=== PATIENT | male | born 1950 | race African-American/Black ===

== ENCOUNTER 2017-01-08 10:48 | Emergency (ER) | payer MEDICARE, OTHER ==
[~2017-01-08] VITALS: Ht 188 cm; Wt 114.3 kg
[~2017-01-08 10:48] MED LIST: DAPA5TAB PO; ESOM40CA PO; GLIP5TAB13 PO; LOSA50TA3 PO; OLME20TA14 PO; OXYC-133 PO; metform PO
[2017-01-08 10:52] VITALS: BP 169/96; PULSE 110; RESP 20; TEMP 97; O2SAT 96
--- NOTE | 2017-01-08 10:57 | NUR ---
Pt placed to ER bed 07. Report given to FARRAH Hardwick.
--- NOTE | 2017-01-08 11:10 | NUR ---
PT. TO ER AAOX4 C/O LOWER BACK AND UPPER BACK PAIN, STATES THAT HE WAS HEADED TO HIS GRAND DAUGHTER'S SOCCER GAME DID NOT FEEL GOOD ON HIS WAY, STATES THAT HE HAS A HX OF SPINAL SURGERY, DID NOT TAKE HIS OXYCODONE THIS MORNING BECAUSE HE NEEDED TO DRIVE, STATES THAT HIS BP HAS BEEN HIGH FOR PAST 2 DAYS WELL EVEN AFTER TAKING HIS BP MEDS, C/O HEADACHE WELL, PAIN 8/10, DENIES SOB, DENIES CHEST PAIN
--- NOTE | 2017-01-08 11:15 | NUR ---
DR. RASCON AT BEDSIDE EXAMINING THE PT.
--- NOTE | 2017-01-08 11:27 | NUR ---
X RAY AT BEDSIDE
[2017-01-08] MEDS ORDERED: cloNIDine HCL 0.1 MG TABLET PO ONE (11:30)
--- NOTE | 2017-01-08 11:37 | NUR ---
LAB AT BEDSIDE TO DRAW BLOOD, PT. TOLERATED WELL
[2017-01-08 11:41] LABS: BASOPHILS % (AUTO) 0.3 % (0.0-2.0); EOSINOPHILS # (AUTO) 0.1 K/uL (0.0-0.4); EOSINOPHILS % (AUTO) 2.3 % (0.0-4.0); HEMOGLOBIN 12.6 g/dL (14.0-18.0); LYMPHOCYTES % (AUTO) 21.7 % (20.5-51.5); MEAN CORPUSCULAR HEMOGLOBIN 25 pg (27-31); MEAN CORPUSCULAR HGB CONC 31 % (32-36); MEAN CORPUSCULAR VOLUME 79 fL (79.0-98.0); MONOCYTES # (AUTO) 0.3 K/uL (0.0-1.0); MONOCYTES % (AUTO) 6.1 % (1.7-9.3); NEUTROPHILS # (AUTO) 3.2 K/uL (1.8-7.7); NEUTROPHILS % (AUTO) 69.6 % (40.0-70.0); PLATELET COUNT (AUTO) 207 K/uL (130-430); RED BLOOD CELL COUNT(AUTO) 5.09 MIL/uL (4.2-6.2); RED CELL DISTRIBUTION WIDTH 17.7 % (9.0-15.0); WHITE BLOOD COUNT (AUTO) 4.6 K/uL (4.8-10.8)
[2017-01-08 11:46] LABS: CALCIUM 9.4 mg/dL (8.4-11.0); CREATININE 1.34 mg/dL (0.55-1.30)
[2017-01-08 11:51] LABS: ALBUMIN 3.9 g/dL (3.4-4.8); TOTAL BILIRUBIN 0.2 mg/dL (0.0-1.0); TOTAL PROTEIN, SERUM 7.8 g/dL (6.4-8.3)
--- NOTE | 2017-01-08 12:00 | NUR ---
DR. RASCON AT BEDSIDE, BP DOWN TO 138/89, PT. STATES HE IS WORRIED ABOUT THE HEADACHE, MD DR. RASCON DISCUSSED PLAN OF CARE AND A CT SCAN, PT. REFUSES TO TAKE NORCO FOR HIS HEADACHE STATES HE DOES NOT WANT TO GO TO ANOTHER FACITY FOR CT SCAN, STATES," I WILL FOLLOW UP WITH MY DOCTOR INSTEAD"
[2017-01-08 12:01] LABS: INR 0.9 (0.80-1.20); PROTHROMBIN TIME 10.2 SECS (9.5-12.5)
[2017-01-08] MEDS ORDERED: HYDROcodone/ACETAMIN 10-325 MG TAB PO ONE (12:15)
--- NOTE | 2017-01-08 12:20 | NUR ---
EXPLAINED PLAN OF TREATMENT BY FIFI YAN AND TARAH MELÉNDEZ, PT. REFUSED TO SIGN DISCHARGE PAPERS AND AMA FORM, STATES HE IS NOT GOING TO SIGN ANY PAPERS, VARIOUS ATTEMPTS TO EXPLAIN CONSEQUENCES OF LEAVING WITHOUT COMPLETING THE COURSE OF TREATMEN, PT. UNWILLING TO COOPERATE AND STAY FOR TREATMENT
--- NOTE | 2017-01-08 12:25 | NUR ---
PT. ELOPED AGAINST MD DR. RASCON'S MEDICAL ADVICE
== END 2017-01-08 12:27 | disposition left against medical advice (07) ==
LOC: SED 10:48
DX: I10 Essential (primary) hypertension (principal); G89.29 Other chronic pain; M54.2 Cervicalgia; M54.9 Dorsalgia, unspecified; E11.9 Type 2 diabetes mellitus without complications; Z53.20 Procedure and treatment not carried out because of patient's decision for unspecified reasons
CPT/HCPCS: 36415; 71010; 80053; 83880; 84484; 85025; 85610-TC; 85730-TC; 93005; 99285

== ENCOUNTER 2018-11-02 18:58 | Inpatient (IN) | payer MEDICARE, MEDICAID ==
[~2018-11-02] VITALS: Ht 188 cm; Wt 114.3 kg
[2018-11-02 19:15] VITALS: BP_SYST 157
--- NOTE | 2018-11-02 19:20 | NUR ---
Pt triaged , pt A&Ox4, Dr Jarvis notified pt has headache and swelling of lower extremities, no rooms available at this time,orders received for CT head, labs and X-ray. orders placed by Dr Jarvis at this time.
--- NOTE | 2018-11-02 19:25 | NUR ---
Pt placed to ER bed 01, to gown. Pt c/o H/A, neck pain, Left groin pain, and swelling/redness to BLE x 1.5 weeks. Pt states that he went to ER in [place] r/t H/A and was discharged with possible sinus infection, Rx antibiotics which he just completed. Pt verbalizes fear r/t H/A because family hx of brain aneurysms.
--- NOTE | 2018-11-02 19:50 | NUR ---
Dr. Choi at bedside.
[2018-11-02 19:59] LABS: BILIRUBIN,URINE NEGATIVE (NEGATIVE); BLOOD, URINE TRACE (NEGATIVE); CLARITY/URINE CLEAR (CLEAR); COLOR,URINE YELLOW (YELLOW); GLUCOSE,URINE 3+ (NEGATIVE); KETONES,URINE NEGATIVE (NEGATIVE); LEUKOCYTE ESTERASE ,URINE NEGATIVE (NEGATIVE); NITRITE, URINE NEGATIVE (NEGATIVE); PROTEIN URINE 1+ (NEGATIVE); UROBILINOGEN,URINE 0.2 (0.2-1.0)
[2018-11-02 20:11] LABS: BACTERIA,URINE RARE /HPF (None Seen); RBC,URINE 0-3 /HPF (0-3); WBC,URINE 0-3 /HPF (0-3)
[2018-11-02 20:33] LABS: BASOPHILS % (AUTO) 0.3 % (0.0-2.0); EOSINOPHILS # (AUTO) 0.1 K/uL (0.0-0.4); EOSINOPHILS % (AUTO) 2.3 % (0.0-4.0); HEMATOCRIT 41.9 % (36-54); HEMOGLOBIN 13.1 g/dL (14.0-18.0); LYMPHOCYTES # (AUTO) 1.2 K/uL (1.0-5.5); LYMPHOCYTES % (AUTO) 28.8 % (20.5-51.5); MEAN CORPUSCULAR HEMOGLOBIN 25 pg (27-31); MEAN CORPUSCULAR HGB CONC 31 % (32-36); MEAN CORPUSCULAR VOLUME 81 fL (79.0-98.0); MONOCYTES # (AUTO) 0.3 K/uL (0.0-1.0); MONOCYTES % (AUTO) 7.8 % (1.7-9.3); NEUTROPHILS # (AUTO) 2.5 K/uL (1.8-7.7); NEUTROPHILS % (AUTO) 60.8 % (40.0-70.0); PLATELET COUNT (AUTO) 210 K/uL (130-430); RED CELL DISTRIBUTION WIDTH 16.8 % (9.0-15.0); WHITE BLOOD COUNT (AUTO) 4.1 K/uL (4.8-10.8)
[2018-11-02 20:47] LABS: CALCIUM 9.5 mg/dL (8.4-11.0); CREATININE 1.43 mg/dL (0.55-1.30); POTASSIUM 4.1 mmol/L (3.5-5.1)
[2018-11-02 20:51] LABS: PROTHROMBIN TIME 9.8 SECS (9.5-12.5)
[2018-11-02 20:57] LABS: ALBUMIN 3.9 g/dL (3.4-4.8); TOTAL BILIRUBIN 0.2 mg/dL (0.0-1.0)
[2018-11-02] MEDS ORDERED: VANCOMYCIN HCL 2,000 MG in NS 250 ML IV ONE (22:15)
[2018-11-02] MEDS ORDERED: NACL 0.9% 1,000 ML IV ONE (22:15)
[2018-11-02] MEDS ORDERED: HYDROcodone/ACETAMIN 5-325 MG TAB (NORCO/ VICODIN) PO ONE (22:30)
[2018-11-02] MEDS ORDERED: METOCLOPRAMIDE HCL 10 MG/2 ML VIAL IVP ONE (22:30)
[2018-11-02 22:41] LABS: THYROID STIMULATING HORMONE 1.74 uIu/mL (0.34-4.82)
[2018-11-02] MEDS ORDERED: LOVA40TA75 PO (22:41)
[2018-11-02] MEDS ORDERED: OXYC10TA56 PO (22:41)
[2018-11-02] MEDS ORDERED: HYDR-3608 PO (22:42)
[2018-11-02] MEDS ORDERED: GLIP-214 PO (22:45)
[2018-11-02] MEDS ORDERED: FURO-149 PO (22:46)
[2018-11-02] MEDS ORDERED: VANCOMYCIN HCL 1000 MG/VIAL IV ONE (22:47)
[2018-11-02] MEDS ORDERED: cefTRIAXone 2 GM VIAL ONE (22:48)
--- NOTE | 2018-11-02 22:50 | NUR ---
Santino from CT reports that Cr level is too high for IV contrast. Dr. Choi notified and order changed to CT without contrast.
--- NOTE | 2018-11-02 23:22 | NUR ---
Pt to CT for abdominal series.
--- NOTE | 2018-11-03 | NUR ---
Pt returns from CT.
[2018-11-03] MEDS ORDERED: BISACODYL 5 MG TABLET.DR (DULCOLAX) PO PRN (00:15)
[2018-11-03] MEDS ORDERED: MORPHINE 4 MG/ML INJ. SYRINGE IVP PRN (00:15)
--- NOTE | 2018-11-03 00:35 | NUR ---
No needs verbalized at this time.
--- NOTE | 2018-11-03 01:20 | NUR ---
Patient will be admitted to care of Dr. Mobley. Admitted to Med/Surg unit. Will go to room 135. Belongings list completed. Summary report printed. Report will be given at bedside.
--- NOTE | 2018-11-03 01:36 | NUR ---
ADMISSION: The patient, SHERIF COOK, 68 y/o, M admitted by CHRISTINE SOMMERS DO, was given written information regarding hospital policies, unit procedures and contact persons.
[2018-11-03 01:44] VITALS: BP_SYST 133
--- NOTE | 2018-11-03 02:40 | NUR ---
Note: Patient safely ambulated to restroom and back to bed with steady gait. No complaints of shortness of breath. Patient refused bed alarm, education was provided regarding bed alarm use. Call light is with patient. Will continue to monitor.
--- NOTE | 2018-11-03 02:45 | NUR ---
Morphine allergy: Patient states he has an allergic reaction to morphine, states that his arms become swollen and itchy. Will notify doctor regarding patient's allergy and ordered morphine. Addendum: 11/03/18 at 0651 by Eduin Aaron RN Allergy band applied to patient at this time.
--- NOTE | 2018-11-03 02:51 | NUR ---
JORI MELÉNDEZ Left a voicemail with call back info for Dr. Mobley regarding orders.
--- NOTE | 2018-11-03 04:37 | NUR ---
Rounds: Patient resting in bed with eyes closed, does not show signs or symptoms of acute distress. Respirations even and unlabored on room air. Call light is with patient. Will continue to monitor.
--- NOTE | 2018-11-03 04:59 | NUR ---
Spoke with Dr. Mobley: informed that patient stated he had allergy to morphine, that his reaction to it is swollen and itchy arms. MD ordered to D/C morphine. Ordered medications for moderate and severe pain. RN will input orders.
[2018-11-03] MEDS ORDERED: HYDROcodone/ACETAMIN 5-325 MG TAB (NORCO/ VICODIN) PO PRN (05:00)
[2018-11-03] MEDS: HYDROcodone/ACETAMIN 5-325 MG TAB (NORCO/ VICODIN) PO PRN ×2 (05:07→09:43)
--- NOTE | 2018-11-03 05:07 | NUR ---
Pain management: Patient complaining of 8/10 back pain. PRN Palmer indicated. Educated patient regarding indications and side effects of morphine, patient verbalized understanding. Administered medication PO per MD order. Patient tolerated well. Call light with patient. Will continue monitoring.
--- NOTE | 2018-11-03 06:50 | NUR ---
Closing note: Patient resting in bed, no acute distress noted. IV to patient's left hand remains patent and benign. Most recent blood sugar was 150, no insulin provided per sliding scale. Call light is with patient. Safety and fall precautions in place. Will endorse care to dayshift RN.
--- NOTE | 2018-11-03 07:30 | NUR ---
INITIAL NOTE RECEIVED PT IN BED, NO S/S OF DISTRESS OR SOB NOTED, PT HAS NO C/O PAIN AT THIS TIME, PT IN STABLE CONDITION. PT AAOX4, VERBAL. IV CATHETER PATENT, NO SIGNS OF INFECTION OR INFILTRATION NOTED, SALINE LOCK. BED AT LOWEST POSITION, CALL LIGHT WITHIN REACH, WILL CONTINUE TO MONITOR PT FOR ANY CHANGES, FALL AND SAFETY PRECAUTIONS IN PLACE.
[2018-11-03 08:30] VITALS: BP_SYST 157
[2018-11-03] MEDS ORDERED: LACTULOSE 20 GM/30 ML UDC PO ONE (09:30)
[2018-11-03] MEDS ORDERED: NA PHOS,M-B/NA PHOS,DI-BA 118 ML (FLEET ENEMA) RC ONE (09:30)
--- NOTE | 2018-11-03 09:30 | NUR ---
MD ROUNDS DR SOMMERS ROUNDING, AWARE OF PATIENTS CONDITION. NEW ORDERS GIVEN AND CARRIED OUT.
--- NOTE | 2018-11-03 09:45 | NUR ---
CONSULTATION PAGED/CALLED Reason for Consultation: [] HARPER, FAMILY HX IF ANEURYSMS Person Who was Notified: [] Consulting Physician: [] DR Forrest BEDOLLA Feed Mixer Specialty: [] NEUROLOGY Ordering Physician: [] DR Annalisa SOMMERS Addendum: 11/03/18 at 0950 by Meka Carr MT/ PERSON WHO WAS NOTIIED - RUSSEL
[2018-11-03] MEDS ORDERED: CYCLOBENZAPRINE HCL 10 MG TABLET (FLEXERIL) PO ONE (10:00)
--- NOTE | 2018-11-03 10:10 | NUR ---
ROUNDS PT IN BED, NO S/S OF DISTRESS OR SOB NOTED, PT HAS NO C/O PAIN AT THIS TIME, PT IN STABLE CONDITION, PT RESTING COMFORTABLY, WILL CONTINUE TO MONITOR PT FOR ANY CHANGES.
[2018-11-03] MEDS: NACL 0.9% 1,000 ML IV SCH (10:25)
[2018-11-03] MEDS: FIORCET PO PRN ×2 (10:26→14:50)
[2018-11-03] MEDS ORDERED: oxyCODONE HCL 5 MG TABLET PO ONE (10:30)
[2018-11-03] MEDS ORDERED: oxyCODONE HCL 10 MG TAB.ER.12H PO SCH ×2 (10:30→15:00)
[2018-11-03] MEDS: INSULIN ASPART 100 UNITS/ML, 10 ML VIAL (NovoLOG) SUBCUT PRN ×3 (11:29→21:17)
[2018-11-03] MEDS ORDERED: MILK OF MAGNESIA 30 ML UDC PO ONE (12:15)
[2018-11-03] MEDS ORDERED: LORazepam 2 MG/ML VIAL IVP ONE (12:15)
[2018-11-03] MEDS ORDERED: BISACODYL 10 MG/SUPPOSITORY RC ONE (12:15)
[2018-11-03 12:51] VITALS: BP_SYST 159
[2018-11-03] MEDS ORDERED: LINA1TAB5 PO (13:59)
[2018-11-03] MEDS ORDERED: PIOG30TA70 PO (13:59)
[2018-11-03] MEDS ORDERED: PRO40 PO (13:59)
[2018-11-03] MEDS ORDERED: FLUT16SP16 NS (14:01)
[2018-11-03] MEDS ORDERED: TAMS-11 PO (14:15)
--- NOTE | 2018-11-03 15:00 | NUR ---
MRI PT LEFT UNIT FOR MRI, PT WAS ADMINISTERED ORDERED ATIVAN FOR ANXIETY. PT IN STABLE CONDITION, NO S/S OF DISTRESS OR SOB NOTED.
--- NOTE | 2018-11-03 16:00 | NUR ---
BACK FROM MRI PT IN STABLE CONDITION, NO S/S OF DISTRESS OR SOB NOTED, PT HAS NO C/O PAIN AT THIS TIME, PT WAS ABLE TO GET MRI OF BRAIN DONE.
[2018-11-03] MEDS: oxyCODONE HCL 5 MG TABLET PO SCH ×2 (16:43→21:09)
[2018-11-03 17:25] VITALS: BP_SYST 139
[2018-11-03] MEDS: SIMVASTATIN 10 MG TABLET PO SCH (17:43)
--- NOTE | 2018-11-03 18:34 | NUR ---
CLOSING NOTE PT IN BED, NO S/S OF DISTRESS OR SOB NOTED, PT HAS NO C/O PAIN AT THIS TIME, PT IN STABLE CONDITION. PT AAOX4, VERBAL. IV CATHETER PATENT, NO SIGNS OF INFECTION OR INFILTRATION NOTED, SALINE LOCK. BED AT LOWEST POSITION, CALL LIGHT WITHIN REACH, WILL ENDORSE CARE OF PT TO INCOMING NURSE, FALL AND SAFETY PRECAUTIONS IN PLACE.
--- NOTE | 2018-11-03 19:45 | NUR ---
ROUNDS PATIENT IN BED, WATCHING TV, NOT IN DISTRESS, VITALS STABLE. DENIES ANY PAIN AND DISCOMFORT AT THIS TIME. ASSESSMENT DONE AND DOCUMENTED. IV WITH NS INFUSING WELL AT ORDERED RATE. IV SITE PATENT, NO SIGNS OF INFILTRATION NOTED. NEEDS ATTENDED TO. SAFETY AND FALL PRECAUTION MEASURES IN PLACED. BED IN LOW AND LOCKED POSITION. CALL LIGHT PLACED WITHIN REACH.
[2018-11-03] MEDS: cefTRIAXone 1 GM IVPB PREMIX 50 ML IV SCH (21:08)
[2018-11-03] MEDS: CYCLOBENZAPRINE HCL 10 MG TABLET (FLEXERIL) PO SCH (21:09)
--- NOTE | 2018-11-03 21:20 | NUR ---
ACCU CHECK ACCU CHECK DONE, BLOOD SUGAR 255 WITH 6 UNITS NOVOLOG GIVEN PER SLIDING SCALE. WILL CONTINUE TO MONITOR.
--- NOTE | 2018-11-04 00:14 | NUR ---
PATIENT RESTING: Patient resting quietly. No acute distress noted. Vital signs within normal range.
[2018-11-04 00:55] VITALS: BP_SYST 157
--- NOTE | 2018-11-04 02:15 | NUR ---
ROUNDS PATIENT ASLEEP, NO SOB NOR PAIN AND DISCOMFORT NOTED. WILL CONTINUE TO MONITOR.
--- NOTE | 2018-11-04 04:13 | NUR ---
ROUNDS PATIENT ASLEEP, VITALS STABLE, NO PAIN AND DISCOMFORT NOTED. WILL CONTINUE TO MONITOR.
[2018-11-04] MEDS: HYDROcodone/ACETAMIN 5-325 MG TAB (NORCO/ VICODIN) PO PRN ×2 (05:24→13:40)
[2018-11-04] MEDS: NACL 0.9% 1,000 ML IV SCH ×2 (05:30→17:54)
[2018-11-04 07:24] LABS: BASOPHILS % (AUTO) 0.1 % (0.0-2.0); EOSINOPHILS # (AUTO) 0.1 K/uL (0.0-0.4); EOSINOPHILS % (AUTO) 2.4 % (0.0-4.0); HEMATOCRIT 41.7 % (36-54); HEMOGLOBIN 13.2 g/dL (14.0-18.0); LYMPHOCYTES # (AUTO) 0.8 K/uL (1.0-5.5); LYMPHOCYTES % (AUTO) 22.7 % (20.5-51.5); MEAN CORPUSCULAR HEMOGLOBIN 26 pg (27-31); MEAN CORPUSCULAR HGB CONC 32 % (32-36); MEAN CORPUSCULAR VOLUME 81 fL (79.0-98.0); MONOCYTES # (AUTO) 0.3 K/uL (0.0-1.0); MONOCYTES % (AUTO) 9.5 % (1.7-9.3); NEUTROPHILS # (AUTO) 2.3 K/uL (1.8-7.7); NEUTROPHILS % (AUTO) 65.3 % (40.0-70.0); PLATELET COUNT (AUTO) 200 K/uL (130-430); RED BLOOD CELL COUNT(AUTO) 5.14 MIL/uL (4.2-6.2); RED CELL DISTRIBUTION WIDTH 16.7 % (9.0-15.0); WHITE BLOOD COUNT (AUTO) 3.6 K/uL (4.8-10.8)
[2018-11-04 07:49] LABS: CALCIUM 9.7 mg/dL (8.4-11.0); CREATININE 1.22 mg/dL (0.55-1.30); POTASSIUM 3.8 mmol/L (3.5-5.1)
[2018-11-04 08:00] VITALS: BP_SYST 139
--- NOTE | 2018-11-04 08:00 | NUR ---
am notes Pt in bed, eating breakfast. has back and neck pain. was medicated by night nurse. IVF infusing well. ambulate to the bathroom. safety precaution observed. call light within reach. enc. to call when getting out of bed. refuses bed alarm.
[2018-11-04] MEDS ORDERED: LOSARTAN POTASSIUM 50 MG TABLET (COZAAR) PO SCH (09:00)
[2018-11-04] MEDS: FIORCET PO PRN (09:19)
[2018-11-04] MEDS ORDERED: DOCUSATE SODIUM 250 MG CAPSULE PO ONE (09:30)
[2018-11-04] MEDS: LOSARTAN POTASSIUM 50 MG TABLET (COZAAR) PO SCH (09:46)
[2018-11-04] MEDS: glipiZIDE XL 5 MG TAB ( GLUCOTROL XL) PO SCH (09:46)
[2018-11-04] MEDS: CYCLOBENZAPRINE HCL 10 MG TABLET (FLEXERIL) PO SCH ×2 (09:46→20:56)
[2018-11-04] MEDS: oxyCODONE HCL 5 MG TABLET PO SCH ×3 (09:48→20:55)
[2018-11-04] MEDS: FUROSEMIDE 40 MG TABLET PO SCH (09:50)
--- NOTE | 2018-11-04 10:30 | NUR ---
Notes- Sitting in the chair, headache better. no distress noted. Seen by Dr. Mobley at bedside. Call light in reach. Enc. to call for help as needed.
[2018-11-04 11:09] VITALS: BP_SYST 139
[2018-11-04] MEDS: INSULIN ASPART 100 UNITS/ML, 10 ML VIAL (NovoLOG) SUBCUT PRN ×3 (12:00→21:16)
--- NOTE | 2018-11-04 13:43 | NUR ---
notes In bed, watching tv, complain of back pain of 8/10 pain level. medicated with norco as ordered.
--- NOTE | 2018-11-04 14:55 | NUR ---
Notes In bed, resting. no distress noted. Report given to Dede YAN for continuity of care.
--- NOTE | 2018-11-04 14:56 | NUR ---
Notes- In bed, resting. report given to Dede YAN for continuity of care.
--- NOTE | 2018-11-04 15:00 | NUR ---
Opening Note received report from Bethany Roman RN, pt resting in bed, A&Ox4, respirations even and unlabored on room air, no acute distress noted, IV site clean, dry, intact, and infusing well, pt educated on use of call light and asked to call for assistance, pt verbalized understanding, call light in reach, pt educated on use of bed alarm for pt safety, pt refusing bed alarm, bed in low and locked position, fall and aspiration precautions in place.
--- NOTE | 2018-11-04 15:46 | NUR ---
Medication pt educated on use and side effects of medication, pt verbalized understanding, tolerated medication administration well, no acute distress noted, fall and aspiration precautions in place.
[2018-11-04 16:52] VITALS: BP_SYST 122
[2018-11-04] MEDS: SIMVASTATIN 10 MG TABLET PO SCH (17:11)
--- NOTE | 2018-11-04 17:15 | NUR ---
Medication/Blood glucose blood glucose 164, pt educated on use and side effects of novolog per sliding scale orders and use and side effects of all medications, pt verbalized understanding, tolerated medication administration well, no acute distress noted, fall and aspiration precautions in place.
--- NOTE | 2018-11-04 17:57 | NUR ---
IV fluids pt educated on use and side effects of IV fluid administration, pt verbalized understanding, new bag of IV fluids hung at this time, pt tolerating well, no redness or swelling noted at IV site, pt in bed eating dinner, fall and aspiration precautions in place.
--- NOTE | 2018-11-04 19:20 | NUR ---
Closing Note pt resting in bed, A&Ox4, respirations even and unlabored on room air, pt reports pain is controlled at this time, no acute distress noted, IV site clean, dry, intact, and infusing well, pt educated on use of call light and asked to call for assistance, pt verbalized understanding, call light in reach, pt educated on use of bed alarm for pt safety, pt refusing bed alarm, bed in low and locked position, fall and aspiration precautions in place, care endorsed to Sylvia YAN.
--- NOTE | 2018-11-04 19:30 | NUR ---
CHANGE OF SHIFT: pt. awake,alert, sitting at the edge of the bed with family visiting, denies any pain at this time. IVF infusing with NS @ 60 cc/hr. via rt. antecubital. call light within reach, bed in low position, off sequential, pt. ambulatory.
[2018-11-04 20:30] VITALS: BP_SYST 141
[2018-11-04] MEDS: DOCUSATE SODIUM 250 MG CAPSULE PO SCH (20:48)
[2018-11-04] MEDS: cefTRIAXone 1 GM IVPB PREMIX 50 ML IV SCH (20:59)
--- NOTE | 2018-11-04 21:15 | NUR ---
NOTES: due meds given and blood sugar checked 190 with sliding scale coverage. IV site, secured with more tape. changed gown. pt. needs attended. c/o back pain and medicated as scheduled.
[2018-11-05] VITALS: BP_SYST 132
--- NOTE | 2018-11-05 00:30 | NUR ---
NOTES: pt. assisted to the restroom. IVF infusing, pt. needs attended.
--- NOTE | 2018-11-05 03:13 | NUR ---
NOTES: pt. sleeping when checked, in no acute distress. condition unchanged.
[2018-11-05] MEDS: HYDROcodone/ACETAMIN 5-325 MG TAB (NORCO/ VICODIN) PO PRN ×2 (06:23→21:34)
--- NOTE | 2018-11-05 06:30 | NUR ---
CLOSING NOTES; PT. ALREADY AWAKE C/O OF LOWER BACK PAIN, MEDICATED ORDERED WITH NORCO 2 TABS PO. BLOOD SUGAR CHECKED 147, NO SLIDING SCALE COVERAGE. REPOSITIONED ON HIG FOWLERS POSITION, BOTH LOWER EXTREMITIES STILL SWOLLEN BUT MUCH LESS SWOLLEN ACCORDING TO PT. IV PATENT. FOR FURTHER CARE AND ASSISTANCE. CALL LIGHT WITHIN REACH.
[2018-11-05 07:29] LABS: CALCIUM 10.1 mg/dL (8.4-11.0); CREATININE 1.38 mg/dL (0.55-1.30); POTASSIUM 4.3 mmol/L (3.5-5.1)
--- NOTE | 2018-11-05 07:45 | NUR ---
endorsed pt. to incoming shift with nurse Sidhu.
--- NOTE | 2018-11-05 07:50 | NUR ---
opening note pt awake alert, no distress noted, reoriented to call light use refusing bed alarm,safety maintained
[2018-11-05 08:05] LABS: BASOPHILS % (AUTO) 0.1 % (0.0-2.0); EOSINOPHILS # (AUTO) 0.1 K/uL (0.0-0.4); EOSINOPHILS % (AUTO) 2.1 % (0.0-4.0); HEMATOCRIT 43.6 % (36-54); HEMOGLOBIN 13.9 g/dL (14.0-18.0); LYMPHOCYTES # (AUTO) 1.2 K/uL (1.0-5.5); LYMPHOCYTES % (AUTO) 26.8 % (20.5-51.5); MEAN CORPUSCULAR HEMOGLOBIN 26 pg (27-31); MEAN CORPUSCULAR HGB CONC 32 % (32-36); MEAN CORPUSCULAR VOLUME 82 fL (79.0-98.0); MONOCYTES # (AUTO) 0.7 K/uL (0.0-1.0); MONOCYTES % (AUTO) 14.1 % (1.7-9.3); NEUTROPHILS # (AUTO) 2.7 K/uL (1.8-7.7); NEUTROPHILS % (AUTO) 56.9 % (40.0-70.0); PLATELET COUNT (AUTO) 174 K/uL (130-430); RED BLOOD CELL COUNT(AUTO) 5.34 MIL/uL (4.2-6.2); RED CELL DISTRIBUTION WIDTH 16.4 % (9.0-15.0)
[2018-11-05 08:07] LABS: WHITE BLOOD COUNT (AUTO) 4.7 K/uL (4.8-10.8)
[2018-11-05] MEDS: DOCUSATE SODIUM 250 MG CAPSULE PO SCH ×2 (10:04→21:11)
[2018-11-05] MEDS: glipiZIDE XL 5 MG TAB ( GLUCOTROL XL) PO SCH (10:04)
[2018-11-05] MEDS: CYCLOBENZAPRINE HCL 10 MG TABLET (FLEXERIL) PO SCH ×2 (10:04→21:11)
[2018-11-05] MEDS: PSYLLIUM HUSK 1 PKT PACKET PO SCH (10:04)
[2018-11-05] MEDS: oxyCODONE HCL 5 MG TABLET PO SCH ×3 (10:11→21:12)
[2018-11-05] MEDS: FUROSEMIDE 40 MG TABLET PO SCH (10:12)
[2018-11-05] MEDS: NACL 0.9% 1,000 ML IV SCH (10:13)
[2018-11-05] MEDS: LOSARTAN POTASSIUM 50 MG TABLET (COZAAR) PO SCH (10:13)
[2018-11-05] MEDS ORDERED: NA PHOS,M-B/NA PHOS,DI-BA 118 ML (FLEET ENEMA) RC ONE (10:15)
[2018-11-05] MEDS ORDERED: BISACODYL 10 MG/SUPPOSITORY RC ONE (10:15)
--- NOTE | 2018-11-05 10:16 | NUR ---
am meds given, pt tolerated well, no distress noted.
[2018-11-05] MEDS: INSULIN ASPART 100 UNITS/ML, 10 ML VIAL (NovoLOG) SUBCUT PRN ×3 (12:04→21:23)
--- NOTE | 2018-11-05 12:30 | NUR ---
PT WITH FAMILY IN LOBBY TAKEN VIA WHEELCHAIR.
[2018-11-05 12:41] VITALS: BP_SYST 121
--- NOTE | 2018-11-05 14:48 | NUR ---
SCHEDULED OXYCODONE GIVEN AT THIS TIME. PT DENIES ANY CP/SOB
[2018-11-05 16:22] VITALS: BP_SYST 128
[2018-11-05] MEDS: SIMVASTATIN 10 MG TABLET PO SCH (17:07)
--- NOTE | 2018-11-05 17:11 | NUR ---
blood sugar-193 2 units insulin given per md sliding scale
--- NOTE | 2018-11-05 18:45 | NUR ---
closing note all needs met through shift, safety maintained , will endorse care to ehr trainer.
--- NOTE | 2018-11-05 19:30 | NUR ---
Opening Notes Received patient sitting on the side of bed. Family at the bedside. IV on the right hand 20g. Site is clean dry and intact. Patient is aaox4 and able to verbalize his needs. No complaints of pain at this time. Breathing is unlabored and equal throughout. Patient refused the bed alarm, education given on risk and benefits. Patient acknowledged. Oriented the patient to the room and use of the call light. Safety precautions in place. Will cont to monitor on rounds.
[2018-11-05 20:00] VITALS: BP_SYST 131
[2018-11-05] MEDS: cefTRIAXone 1 GM IVPB PREMIX 50 ML IV SCH (21:11)
--- NOTE | 2018-11-05 22:30 | NUR ---
Patient sitting at the edge of the bed. Tolerated meds well. No respiratory distress. call light within reach.
--- NOTE | 2018-11-06 00:22 | NUR ---
Administered Suppository and tolerated well. Will cont to monitor for bowel movement.
[2018-11-06 00:44] VITALS: BP_SYST 147
--- NOTE | 2018-11-06 02:30 | NUR ---
patient asleep in bed. no appearance of pain or respiratory distress. call light placed within reach.
--- NOTE | 2018-11-06 04:20 | NUR ---
No change in condition
[2018-11-06] MEDS: NACL 0.9% 1,000 ML IV SCH (05:13)
[2018-11-06] MEDS: HYDROcodone/ACETAMIN 5-325 MG TAB (NORCO/ VICODIN) PO PRN (06:13)
--- NOTE | 2018-11-06 06:15 | NUR ---
Blood sugar 135. no coverage needed.
[2018-11-06 06:38] LABS: BASOPHILS % (AUTO) 0.2 % (0.0-2.0); EOSINOPHILS % (AUTO) 0.8 % (0.0-4.0); HEMATOCRIT 43.6 % (36-54); HEMOGLOBIN 13.9 g/dL (14.0-18.0); LYMPHOCYTES # (AUTO) 1.1 K/uL (1.0-5.5); LYMPHOCYTES % (AUTO) 28.3 % (20.5-51.5); MEAN CORPUSCULAR HEMOGLOBIN 26 pg (27-31); MEAN CORPUSCULAR HGB CONC 32 % (32-36); MEAN CORPUSCULAR VOLUME 82 fL (79.0-98.0); MONOCYTES # (AUTO) 0.6 K/uL (0.0-1.0); MONOCYTES % (AUTO) 16.9 % (1.7-9.3); NEUTROPHILS # (AUTO) 2.1 K/uL (1.8-7.7); NEUTROPHILS % (AUTO) 53.8 % (40.0-70.0); PLATELET COUNT (AUTO) 184 K/uL (130-430); RED BLOOD CELL COUNT(AUTO) 5.29 MIL/uL (4.2-6.2); RED CELL DISTRIBUTION WIDTH 16.7 % (9.0-15.0); WHITE BLOOD COUNT (AUTO) 3.8 K/uL (4.8-10.8)
--- NOTE | 2018-11-06 06:46 | NUR ---
Closing Note Patient resting comfortably sitting on side of bed. No complaints of respiratory distress .Complaints of neck and back pain, administered [place] 10mg. IV site intact, dry and clean on left AC. Suppository given but no bowel movement. Bed in low position and safety precautions in place. All needs have been met and will endorse care to oncoming shift.
--- NOTE | 2018-11-06 07:30 | NUR ---
OPENING NOTE: MORNING REPORT WAS TAKEN FROM PLASTER MECHANIC NURSE AT BEDSIDE. PATIENT IS AWAKE SITTING AT EDGE OF BED WITH NO SIGNS OF DISTRESS. PATIENT ON ROOM AIR. FLUIDS ARE INFUSING. CALL LIGHT IS IN REACH. EDUCATED PATIENT ON IMPORTANCE OF BED ALARM BUT REFUSED TO HAVE IT ON. PATIENT SAID HE KNOWS WHAT TO DO. BED IN LOWEST POSITION WITH SIDE RAILS UP. WILL CONTINUE TO MONITOR
[2018-11-06 07:38] LABS: CALCIUM 9.8 mg/dL (8.4-11.0); CREATININE 1.33 mg/dL (0.55-1.30); POTASSIUM 4.3 mmol/L (3.5-5.1)
[2018-11-06 08:22] VITALS: BP_SYST 145
[2018-11-06] MEDS: PSYLLIUM HUSK 1 PKT PACKET PO SCH (09:12)
[2018-11-06] MEDS: FUROSEMIDE 40 MG TABLET PO SCH (09:16)
[2018-11-06] MEDS: glipiZIDE XL 5 MG TAB ( GLUCOTROL XL) PO SCH (09:16)
[2018-11-06] MEDS: LOSARTAN POTASSIUM 50 MG TABLET (COZAAR) PO SCH (09:16)
[2018-11-06] MEDS: DOCUSATE SODIUM 250 MG CAPSULE PO SCH (09:16)
[2018-11-06] MEDS: CYCLOBENZAPRINE HCL 10 MG TABLET (FLEXERIL) PO SCH (09:17)
[2018-11-06] MEDS: oxyCODONE HCL 5 MG TABLET PO SCH (09:18)
--- NOTE | 2018-11-06 09:18 | NUR ---
NOTE: GAVE PATIENT MORNING MEDICATIONS. PATIENT SWALLOWED WITH OUT DIFFICULTIES. PATIENT COMPLAINING OF NAUSEA BUT DOESNT HAVE ZOFRAN. WILL ASK DRHenrry GOT PATIENT 7UP BUT DIDNT WANT. PATIENT HAS NO FURTHER REQUESTS. WILL CONTINUE TO MONITOR.
--- NOTE | 2018-11-06 11:00 | NUR ---
EMELY DC PLANNING: DCP ASSESSMENT COMPLETED. MD RECOMMENDING SERVICES FOR PT AND HOME SAFETY EVAL. DC PLANNING IN PROCESS. Pt PLANS TO DC HOME; DTR WILL TRANSPORT WHEN MEDICALLY STABLE. Addendum: 11/06/18 at 1731 by Minerva Carrera RN 1230: EMELY UPDATED DR. SOMMERS THAT [facility] IS NOT CONTRACTED WITH Pt's INSURANCE; AND, THERE MAY BE DIFFICULTY GETTING TO SEE Pt TOMORROW DUE TO HOLIDAY. Pt INFORMED CM THAT HE STILL DRIVES A CAR AND USES A FWW AT HOME. DR. SOMMERS STATED Pt CAN DC WITHOUT HH. 1300: EMELY MET WITH PT/MAITE HE WAS COMPLETING PT EVAL WITH Pt PRIOR TO DC. CM DISCUSSED WITH PT/MAITE ABOUT WHETHER Pt WOULD BENEFIT FROM HOME Pt. MAITE STATED Pt WOULD BE OK WITH OUT-Pt PT OR CONT'd MOBILITY WITH FWW AT HOME AND AROUND HOME FOR WALKING. MAITE CAUTIONED Pt TO KEEP FWW CLOSER TO BODY WHEN WALKING, TO SLOW DOWN WITH WALKING, AND, TO BE CAREFUL WITH 4 WHEEL WALKERS THAT CAN EASILY SLIP AWAY FROM Pt IF HE GOES TOO FAST AND DOESN'T KEEP CLOSER TO BODY. CM EDUCATED Pt THAT OUT-Pt PT WOULD PROVIDE MORE STRENGTHENING EXERCISES & ASSISTANCE THAN HOME Pt USUALLY DOES; AND, Pt WAS ENCOURAGED TO OBTAIN ORDERS FROM HIS PRIMARY MD THAT HE WILL SEE POST DC FROM HOSPITAL. Pt STATED HIS DTR IS HIS CAREGIVER; AND, SHE VISITS HIM ABOUT 1-3 TIMES PER WEEK; TAKES HIM TO APPTs AND FAMILY EVENTS NEEDED. EMELY ALSO INFORMED Pt ABOUT [employer]; AND, PROVIDED INFO ON DC INSTRUCTIONS SO Pt AND/OR DTR CAN F/UP TO OBTAINED ANY "LOANED" MED EQUIPMENT FROM THIS ORGANIZATION. Pt STATED HE ALSO WOULD LIKE A SCOOTER; AND, CM EDUCATED TO F/UP WITH PMD FOR THIS REFERRAL; AND, THAT DUE TO Pt's BILATERAL EXTREMITY NEUROPATHY WHICH HAS LED TO FALLS AT HOME DURING THE PAST 6 MONTHS, HE MIGHT BE A CANDIDATE TO OBTAIN A SCOOTER FROM MEDICARE. Pt IN AGREEMENT WITH THIS POC AND CM & PT's RECOMMENDATIONS FOR OUT-Pt PT AND HOME SAFETY FOR AMBULATION. CM UPDATED DR. SOMMERS REGARDING Pt REFERRAL TO F/UP WITH PMD ABOUT ORDERS FOR OUT-Pt PT SERVICES.
--- NOTE | 2018-11-06 11:27 | NUR ---
NOTE: WENT TO CHECK PATIENT'S BLOOD SUGAR BUT PATIENT REFUSED TO GET IT CHECKED BECAUSE PATIENT SAID HE'S GOING TO BE GOING HOME AND HE WILL CHECK IT LATER HIMSELF. WILL CONTINUE TO MONITOR.
--- NOTE | 2018-11-06 11:40 | NUR ---
Discharge Planning: DCP faxed pt referral to [facility] (y [phone] p [phone]);DCP to follow up. Addendum: 11/06/18 at 1232 by Rachel MAXWELL [facility] (o [phone] p [phone]) is not contracted with [facility]. DCP faxed to [facility] (f [phone] p [phone]) DCP to follow.
[2018-11-06 12:04] VITALS: BP_SYST 136
[2018-11-06 12:21] VITALS: BP_SYST 136
--- NOTE | 2018-11-06 14:05 | NUR ---
D/C Patient Patient given medication reconciliation form and D/C instructions. Exit Care provided. Patient verbalized understanding. MD discussed with patient the results and treatment provided. Ambulatory with steady gait for discharge to home. Patient in stable condition, ID band removed. IV catheter removed, intact and dressing applied, no active bleeding. Patient educated on pain management. All belongings sent with patient. Patient wheeled out to front by me.
--- NOTE | 2018-11-09 11:10 | NUR ---
Discharge Follow Up Phone Call REAL ESTATE TRANSACTION COORDINATOR phoned patient, . Patient stated that he was doing okay but still having pain. He has had 3 BMs so is doing better on that. He has not made a follow up appointment with his PCP. REAL ESTATE TRANSACTION COORDINATOR offered to assist, but patient prefers to make his own appointment. REAL ESTATE TRANSACTION COORDINATOR urged him to call to make an appointment today. Patient will discuss OP PT with his PCP. No other questions or concerns.
== END 2018-11-06 14:05 | disposition home or self-care (01) | DRG 602 ==
LOC: SED 18:58 → SMU 11-03 00:09
PROVIDERS: ADMIT General Practice; ATTEND General Practice
DX: L03.116 Cellulitis of left lower limb (principal); N17.0 Acute kidney failure with tubular necrosis; R65.10 Systemic inflammatory response syndrome (SIRS) of non-infectious origin without acute organ dysfunction; E11.42 Type 2 diabetes mellitus with diabetic polyneuropathy; E66.9 Obesity, unspecified; E78.5 Hyperlipidemia, unspecified; G43.909 Migraine, unspecified, not intractable, without status migrainosus; G89.29 Other chronic pain; I11.0 Hypertensive heart disease with heart failure; I50.9 Heart failure, unspecified; K57.90 Diverticulosis of intestine, part unspecified, without perforation or abscess without bleeding; K59.00 Constipation, unspecified; M47.816 Spondylosis without myelopathy or radiculopathy, lumbar region; M47.812 Spondylosis without myelopathy or radiculopathy, cervical region; E78.00 Pure hypercholesterolemia, unspecified; M54.9 Dorsalgia, unspecified; M54.2 Cervicalgia; R33.9 Retention of urine, unspecified; Z88.8 Allergy status to other drugs, medicaments and biological substances; Z84.89 Family history of other specified conditions; Z79.899 Other long term (current) drug therapy; Z68.32 Body mass index [BMI] 32.0-32.9, adult
CPT/HCPCS: 36415; 70450-TC; 70544; 70551; 71045; 74018; 80048; 80053; 81000-TC; 82962; 83036; 83605; 83690-TC; 83735-TC; 83880; 84443-TC; 84484; 85025; 85610-TC; 85730-TC; 87040-TC; 87081; 93005; 93306; 93970; 96361; 96365; 96366; 96375; 99285; J0696; J1815; J2060; J2765; J3370; J7030

== ENCOUNTER 2019-02-08 15:58 | Inpatient (IN) | payer MEDICARE, MEDICAID ==
[~2019-02-08] VITALS: Ht 188 cm; Wt 115.9 kg
[~2019-02-08 15:58] MED LIST changes: +FLUT16SP16 NS; +FURO-149 PO; +GLIP10TA21 PO; -GLIP5TAB13 PO; +HYDR-3608 PO; +LINA1TAB5 PO; +LOVA40TA75 PO; -OLME20TA14 PO; -OXYC-133 PO; +OXYC10TA56 PO; +PRO40 PO; +TAMS-11 PO; -metform PO
[2019-02-08 16:02] VITALS: BP_SYST 152
[2019-02-08] MEDS ORDERED: ASPIRIN 325 MG TABLET PO ONE (16:15)
[2019-02-08] MEDS ORDERED: NITROGLYCERIN 0.4 MG TAB.SUBL SL ONE (16:30)
[2019-02-08 16:51] LABS: EOSINOPHILS % (AUTO) 2.9 % (0.0-4.0); HEMATOCRIT 40.4 % (36-54); HEMOGLOBIN 13.1 g/dL (14.0-18.0); LYMPHOCYTES % (AUTO) 36.6 % (20.5-51.5); MEAN CORPUSCULAR HEMOGLOBIN 26 pg (27-31); MEAN CORPUSCULAR HGB CONC 32 % (32-36); MEAN CORPUSCULAR VOLUME 80 fL (79.0-98.0); MONOCYTES % (AUTO) 6.3 % (1.7-9.3); NEUTROPHILS % (AUTO) 53.8 % (40.0-70.0); PLATELET COUNT (AUTO) 189 K/uL (130-430); RED BLOOD CELL COUNT(AUTO) 5.02 MIL/uL (4.2-6.2); RED CELL DISTRIBUTION WIDTH 17.5 % (9.0-15.0); WHITE BLOOD COUNT (AUTO) 4.2 K/uL (4.8-10.8)
[2019-02-08 16:52] LABS: BASOPHILS % (AUTO) 0.4 % (0.0-2.0); EOSINOPHILS # (AUTO) 0.1 K/uL (0.0-0.4); LYMPHOCYTES # (AUTO) 1.5 K/uL (1.0-5.5); MONOCYTES # (AUTO) 0.3 K/uL (0.0-1.0); NEUTROPHILS # (AUTO) 2.2 K/uL (1.8-7.7)
[2019-02-08 16:56] LABS: CALCIUM 9.5 mg/dL (8.4-11.0); CREATININE 1.44 mg/dL (0.55-1.30); POTASSIUM 3.8 mmol/L (3.5-5.1)
[2019-02-08 17:14] LABS: ALBUMIN 4.3 g/dL (3.4-4.8); TOTAL BILIRUBIN 0.3 mg/dL (0.0-1.0)
[2019-02-08] MEDS ORDERED: fentaNYL CITRATE/PF 100 MCG/2 ML AMP IVP ONE (17:30)
[2019-02-08 17:36] LABS: CKMB RELATIVE INDEX 1.4 (0.0-2.9); CREATINE KINASE MB 16.3 ng/mL (0-3.6)
[2019-02-08] MEDS ORDERED: NS 500 ML IV ONE (18:00)
[2019-02-08 19:50] VITALS: BP_SYST 132
[2019-02-08] MEDS ORDERED: MAG-AL HYDROX/SIMETH 30 ML UDC PO PRN (20:00)
[2019-02-08] MEDS: oxyCODONE HCL 10 MG TAB.ER.12H PO SCH (20:45)
[2019-02-08] MEDS ORDERED: HYDROcodone/ACETAMIN 7.5-325 MG TAB PO SCH (21:00)
[2019-02-08] MEDS ORDERED: ACETAMINOPHEN 325 MG TABLET PO PRN (21:15)
[2019-02-08 23:42] VITALS: BP_SYST 134
[2019-02-08] MEDS ORDERED: TOPIRAMATE 25 MG TABLET(TOPAMAX) PO ONE (23:45)
[2019-02-08] MEDS ORDERED: VALPROIC ACID 250 MG CAPSULE (DEPAKENE) PO ONE (23:45)
[2019-02-09] MEDS ORDERED: VALPROIC ACID 250 MG CAPSULE (DEPAKENE) PO ONE
[2019-02-09] MEDS: ZOLPIDEM TARTRATE 5 MG TABLET PO PRN (00:12)
[2019-02-09 01:50] LABS: ANION GAP 8 (5-15); CALCIUM 8.8 mg/dL (8.4-11.0); CHLORIDE 105 mmol/L (98-107); CREATININE 1.28 mg/dL (0.55-1.30); GLUCOSE 136 mg/dL (70-99); SODIUM SERUM 138 mmol/L (136-145); UREA NITROGEN, BLOOD 16 mg/dL (8-21)
[2019-02-09 02:05] LABS: THYROID STIMULATING HORMONE 2.13 uIu/mL (0.36-3.74)
[2019-02-09 02:07] LABS: GFR AFRICAN AMERICAN 72 mL/min (>90)
[2019-02-09 02:47] LABS: CKMB RELATIVE INDEX 1.4 (0.0-2.9)
[2019-02-09 02:53] LABS: CHOLESTEROL 135 mg/dL (<200); CREATINE KINASE MB 13.1 ng/mL (0-3.6); HDL CHOLESTEROL 42 mg/dL (>45); LDL CHOLESTEROL 76 mg/dL (<100); TRIGLYCERIDES 80 mg/dL (30-150)
[2019-02-09 08:00] VITALS: BP_SYST 142
[2019-02-09] MEDS: LOSARTAN POTASSIUM 50 MG TABLET (COZAAR) PO SCH (08:13)
[2019-02-09] MEDS: oxyCODONE HCL 10 MG TAB.ER.12H PO SCH ×3 (08:13→20:42)
[2019-02-09] MEDS: glipiZIDE XL 5 MG TAB ( GLUCOTROL XL) PO SCH (08:13)
[2019-02-09] MEDS: ASPIRIN 81 MG TABLET(ECOTRIN) PO SCH (08:14)
[2019-02-09] MEDS ORDERED: PANTOPRAZOLE SODIUM 40 MG TAB PO SCH (09:00)
[2019-02-09] MEDS: ACETAMINOPHEN 325 MG TABLET PO PRN ×2 (10:03→15:58)
[2019-02-09] MEDS ORDERED: CYM30 PO (10:15)
[2019-02-09] MEDS ORDERED: ONDA4TAB5 PO (10:15)
[2019-02-09] MEDS ORDERED: HYDR-4272 PO (10:15)
[2019-02-09 12:27] VITALS: BP_SYST 140
[2019-02-09] MEDS ORDERED: DULoxetine HCL 30 MG CAPSULE.DR (CYMBALTA) PO ONE (12:30)
[2019-02-09] MEDS ORDERED: ONDANSETRON 4 MG ODT TAB PO ONE (12:30)
[2019-02-09] MEDS ORDERED: HYDROcodone/ACETAMIN 5-325 MG TAB (NORCO/ VICODIN) PO ONE (12:45)
[2019-02-09] MEDS ORDERED: ONDANSETRON 4 MG ODT TAB PO SCH (13:45)
[2019-02-09] MEDS ORDERED: HYDROcodone/ACETAMIN 5-325 MG TAB (NORCO/ VICODIN) PO PRN (14:15)
[2019-02-09 16:20] VITALS: BP_SYST 123
[2019-02-09] MEDS ORDERED: SIMVASTATIN 20 MG TABLET PO SCH (18:00)
[2019-02-09 19:00] VITALS: BP_SYST 143
[2019-02-09 20:00] VITALS: BP_SYST 143
[2019-02-09] MEDS: PANTOPRAZOLE SODIUM 40 MG TAB PO SCH (20:42)
[2019-02-09] MEDS: INSULIN LISPRO SLIDING SCALE 100 UNITS/ML VIAL (humaLOG) SUBCUT PRN (20:44)
[2019-02-10] VITALS: BP_SYST 150
[2019-02-10] MEDS: ZOLPIDEM TARTRATE 5 MG TABLET PO PRN (00:13)
[2019-02-10] MEDS ORDERED: TOPIRAMATE 25 MG TABLET(TOPAMAX) PO ONE (02:00)
[2019-02-10] MEDS ORDERED: VALPROIC ACID 250 MG CAPSULE (DEPAKENE) PO ONE (02:00)
[2019-02-10] MEDS: INSULIN LISPRO SLIDING SCALE 100 UNITS/ML VIAL (humaLOG) SUBCUT PRN (06:20)
[2019-02-10 08:00] VITALS: BP_SYST 134
[2019-02-10] MEDS ORDERED: DULoxetine HCL 30 MG CAPSULE.DR (CYMBALTA) PO SCH (09:00)
[2019-02-10] MEDS: ASPIRIN 81 MG TABLET(ECOTRIN) PO SCH (09:21)
[2019-02-10] MEDS: oxyCODONE HCL 10 MG TAB.ER.12H PO SCH (09:21)
[2019-02-10] MEDS: glipiZIDE XL 5 MG TAB ( GLUCOTROL XL) PO SCH (09:21)
[2019-02-10] MEDS: PANTOPRAZOLE SODIUM 40 MG TAB PO SCH (09:21)
[2019-02-10] MEDS: LOSARTAN POTASSIUM 50 MG TABLET (COZAAR) PO SCH (09:22)
[2019-02-10 12:00] VITALS: BP_SYST 134
== END 2019-02-10 12:40 | disposition home or self-care (01) | DRG 683 ==
LOC: SED 15:58 → STU 19:14
PROVIDERS: ADMIT Internal Medicine; ATTEND Internal Medicine
DX: N17.0 Acute kidney failure with tubular necrosis (principal); E87.1 Hypo-osmolality and hyponatremia; R07.89 Other chest pain; K21.9 Gastro-esophageal reflux disease without esophagitis; E11.51 Type 2 diabetes mellitus with diabetic peripheral angiopathy without gangrene; M54.9 Dorsalgia, unspecified; E78.49 Other hyperlipidemia; G89.29 Other chronic pain; D64.9 Anemia, unspecified; I11.0 Hypertensive heart disease with heart failure; Z88.6 Allergy status to analgesic agent; Z79.899 Other long term (current) drug therapy; Z88.8 Allergy status to other drugs, medicaments and biological substances; Z85.46 Personal history of malignant neoplasm of prostate
CPT/HCPCS: 36415; 71045; 80048; 80053; 80061; 82550-TC; 82553-TC; 82962; 83735-TC; 83880; 84443-TC; 84484; 85025; 93005; 96374; G0378; J3010; J7040; Q0162

== ENCOUNTER 2021-02-05 12:44 | Emergency (ER) | payer MEDICARE, MEDICAID ==
[~2021-02-05] VITALS: Ht 188 cm; Wt 106.6 kg
[~2021-02-05 12:44] MED LIST changes: +CYM30 PO; -FURO-149 PO; -HYDR-3608 PO; +HYDR-3609 PO; +HYDR-4272 PO; -LINA1TAB5 PO; +ONDA4TAB5 PO; -PRO40 PO
[2021-02-05 12:50] VITALS: BP_SYST 114
[2021-02-05] MEDS ORDERED: HYDROcodone/ACETAMIN 5-325 MG TAB (NORCO/ VICODIN) PO ONE (13:30)
[2021-02-05] MEDS ORDERED: FUROSEMIDE 40 MG/4 ML VIAL IVP ONE (13:30)
[2021-02-05 13:49] LABS: BASOPHILS # (AUTO) 0.1 K/uL (0.0-0.2); BASOPHILS % (AUTO) 1.1 % (0.0-2.0); EOSINOPHILS # (AUTO) 0.1 K/uL (0.0-0.4); EOSINOPHILS % (AUTO) 1.9 % (0.0-4.0); HEMATOCRIT 33.3 % (36-54); HEMOGLOBIN 10.6 g/dL (14.0-18.0); LYMPHOCYTES # (AUTO) 1.4 K/uL (1.0-5.5); LYMPHOCYTES % (AUTO) 25.8 % (20.5-51.5); MEAN CORPUSCULAR HEMOGLOBIN 26 pg (27-31); MEAN CORPUSCULAR HGB CONC 32 % (32-36); MEAN CORPUSCULAR VOLUME 81 fL (79.0-98.0); MONOCYTES # (AUTO) 0.3 K/uL (0.0-1.0); MONOCYTES % (AUTO) 6.3 % (1.7-9.3); NEUTROPHILS # (AUTO) 3.5 K/uL (1.8-7.7); NEUTROPHILS % (AUTO) 64.9 % (40.0-70.0); PLATELET COUNT (AUTO) 206 K/uL (130-430); RED BLOOD CELL COUNT(AUTO) 4.12 MIL/uL (4.2-6.2); RED CELL DISTRIBUTION WIDTH 18.4 % (9.0-15.0); WHITE BLOOD COUNT (AUTO) 5.4 K/uL (4.8-10.8)
[2021-02-05 14:00] LABS: CALCIUM 9.3 mg/dL (8.4-11.0); CREATININE 1.65 mg/dL (0.55-1.30); POTASSIUM 4.1 mmol/L (3.5-5.1)
[2021-02-05 14:15] LABS: ALBUMIN 3.3 g/dL (3.4-4.8); TOTAL BILIRUBIN 0.3 mg/dL (0.0-1.0)
[2021-02-05 15:30] VITALS: BP_SYST 137
== END 2021-02-05 15:30 | disposition home or self-care (01) ==
LOC: SED 12:44
DX: R60.0 Localized edema (principal); J44.9 Chronic obstructive pulmonary disease, unspecified; I10 Essential (primary) hypertension; E11.9 Type 2 diabetes mellitus without complications; Z79.899 Other long term (current) drug therapy; Z88.1 Allergy status to other antibiotic agents; Z88.6 Allergy status to analgesic agent
CPT/HCPCS: 36415; 71045; 80053; 82550; 83605; 83880; 84484; 85025; 87040; 93005; 96374; 99285; J1940

== ENCOUNTER 2021-03-08 11:10 | Emergency (ER) | payer MEDICARE, MEDICAID ==
[~2021-03-08] VITALS: Ht 188 cm; Wt 109.8 kg
[2021-03-08 11:24] VITALS: BP_SYST 141
[2021-03-08] MEDS ORDERED: PIOG30TA70 PO (11:58)
[2021-03-08] MEDS ORDERED: FURO-150 PO ×2 (11:58→18:07)
[2021-03-08] MEDS ORDERED: POTA10TA11 PO (11:58)
[2021-03-08] MEDS ORDERED: LINA145C PO (11:58)
[2021-03-08] MEDS ORDERED: SITA50TA3 PO (12:02)
[2021-03-08] MEDS ORDERED: CYCL10TA9 PO (12:02)
[2021-03-08] MEDS ORDERED: METF-381 PO (12:02)
[2021-03-08] MEDS ORDERED: METO5TAB86 PO (12:02)
[2021-03-08] MEDS ORDERED: LACT10PA5 PO (12:02)
[2021-03-08] MEDS ORDERED: FLUT50BL (12:12)
[2021-03-08] MEDS ORDERED: NAPR-1174 PO (12:12)
[2021-03-08] MEDS ORDERED: HYDR-4272 PO (12:12)
[2021-03-08] MEDS ORDERED: ALBU90AE2 INH (12:12)
[2021-03-08 12:43] LABS: CALCIUM 9.7 mg/dL (8.4-11.0); CREATININE 1.7 mg/dL (0.55-1.30); POTASSIUM 3.7 mmol/L (3.5-5.1)
[2021-03-08 12:47] LABS: BASOPHILS % (AUTO) 0.2 % (0.0-2.0); EOSINOPHILS # (AUTO) 0.1 K/uL (0.0-0.4); HEMATOCRIT 32.8 % (36-54); HEMOGLOBIN 10.5 g/dL (14.0-18.0); LYMPHOCYTES # (AUTO) 1.6 K/uL (1.0-5.5); LYMPHOCYTES % (AUTO) 31.7 % (20.5-51.5); MEAN CORPUSCULAR HEMOGLOBIN 26 pg (27-31); MEAN CORPUSCULAR HGB CONC 32 % (32-36); MEAN CORPUSCULAR VOLUME 81 fL (79.0-98.0); MONOCYTES # (AUTO) 0.4 K/uL (0.0-1.0); MONOCYTES % (AUTO) 7.9 % (1.7-9.3); NEUTROPHILS # (AUTO) 2.9 K/uL (1.8-7.7); NEUTROPHILS % (AUTO) 58.2 % (40.0-70.0); PLATELET COUNT (AUTO) 234 K/uL (130-430); PROTHROMBIN TIME 10.4 SECS (9.5-12.5); RED BLOOD CELL COUNT(AUTO) 4.07 MIL/uL (4.2-6.2); WHITE BLOOD COUNT (AUTO) 4.9 K/uL (4.8-10.8)
[2021-03-08 12:49] LABS: ALBUMIN 3.5 g/dL (3.4-4.8); TOTAL BILIRUBIN 0.2 mg/dL (0.0-1.0)
[2021-03-08] MEDS: OXYCODONE/ACETAMINOPHEN *10*mg/325 mg TABLET PO ONE (13:15)
[2021-03-08 13:52] LABS: BILIRUBIN,URINE NEGATIVE (NEGATIVE); BLOOD, URINE NEGATIVE (NEGATIVE); CLARITY/URINE OTHER (CLEAR); COLOR,URINE YELLOW (YELLOW); GLUCOSE,URINE NEGATIVE (NEGATIVE); KETONES,URINE NEGATIVE (NEGATIVE); LEUKOCYTE ESTERASE ,URINE NEGATIVE (NEGATIVE); NITRITE, URINE NEGATIVE (NEGATIVE); PROTEIN URINE 2+ (NEGATIVE); UROBILINOGEN,URINE 0.2 (0.2-1.0)
[2021-03-08 14:03] LABS: BACTERIA,URINE FEW /HPF (None Seen); MUCUS,URINE None Seen /LPF (None Seen); RBC,URINE NONE SEEN /HPF (0-3); WBC,URINE 0-3 /HPF (0-3)
[2021-03-08 18:10] VITALS: BP_SYST 129
== END 2021-03-08 18:10 | disposition home or self-care (01) ==
LOC: SED 11:10
DX: I11.0 Hypertensive heart disease with heart failure (principal); I50.9 Heart failure, unspecified; J44.9 Chronic obstructive pulmonary disease, unspecified; E11.29 Type 2 diabetes mellitus with other diabetic kidney complication; N28.9 Disorder of kidney and ureter, unspecified; K21.9 Gastro-esophageal reflux disease without esophagitis; Z88.1 Allergy status to other antibiotic agents; Z88.6 Allergy status to analgesic agent; Z79.899 Other long term (current) drug therapy; Z20.822 Contact with and (suspected) exposure to COVID-19
CPT/HCPCS: 36415; 71045; 78579; 78580; 80053; 81000; 83880; 84484; 85025; 85610; 85730; 87426; 93005; 93970; 99285; A9539; A9540

== ENCOUNTER 2021-04-09 09:10 | Emergency (ER) | payer MEDICARE, MEDICAID ==
[~2021-04-09] VITALS: Ht 188 cm; Wt 117.9 kg
[2021-04-09 09:10] VITALS: BP_SYST 153
[~2021-04-09 09:10] MED LIST changes: +ALBU90AE2 INH; +CYCL10TA9 PO; +FLUT50BL; +FURO-150 PO; +LACT10PA5 PO; +LINA145C PO; +METF-381 PO; +METO5TAB86 PO; +NAPR-1174 PO; +PIOG30TA70 PO; +POTA10TA11 PO; +SITA50TA3 PO
[2021-04-09 10:02] LABS: BASOPHILS % (AUTO) 0.3 % (0.0-2.0); EOSINOPHILS # (AUTO) 0.1 K/uL (0.0-0.4); EOSINOPHILS % (AUTO) 2.9 % (0.0-4.0); HEMATOCRIT 32.9 % (36-54); HEMOGLOBIN 10.3 g/dL (14.0-18.0); LYMPHOCYTES # (AUTO) 1.1 K/uL (1.0-5.5); LYMPHOCYTES % (AUTO) 24.6 % (20.5-51.5); MEAN CORPUSCULAR HEMOGLOBIN 25 pg (27-31); MEAN CORPUSCULAR HGB CONC 31 % (32-36); MEAN CORPUSCULAR VOLUME 80 fL (79.0-98.0); MONOCYTES # (AUTO) 0.3 K/uL (0.0-1.0); MONOCYTES % (AUTO) 6.6 % (1.7-9.3); NEUTROPHILS # (AUTO) 2.9 K/uL (1.8-7.7); NEUTROPHILS % (AUTO) 65.6 % (40.0-70.0); PLATELET COUNT (AUTO) 214 K/uL (130-430); RED BLOOD CELL COUNT(AUTO) 4.12 MIL/uL (4.2-6.2); RED CELL DISTRIBUTION WIDTH 17.1 % (9.0-15.0); WHITE BLOOD COUNT (AUTO) 4.5 K/uL (4.8-10.8)
[2021-04-09 10:18] LABS: CALCIUM 9.3 mg/dL (8.4-11.0); CREATININE 1.75 mg/dL (0.55-1.30); POTASSIUM 3.7 mmol/L (3.5-5.1)
[2021-04-09 10:24] LABS: ALBUMIN 3.6 g/dL (3.4-4.8); TOTAL BILIRUBIN 0.1 mg/dL (0.0-1.0)
[2021-04-09] MEDS ORDERED: ONDANSETRON HCL 4 MG/2 ML VIAL IVP ONE (11:00)
[2021-04-09] MEDS ORDERED: KETOROLAC TROMETHAMINE 30 MG VIAL IM ONE (11:00)
[2021-04-09] MEDS ORDERED: PREG150C46 PO ×2 (11:00)
[2021-04-09 11:43] VITALS: BP_SYST 153
== END 2021-04-09 11:40 | disposition home or self-care (01) ==
LOC: SED 09:10
DX: G62.9 Polyneuropathy, unspecified (principal); I10 Essential (primary) hypertension; E11.9 Type 2 diabetes mellitus without complications; J44.9 Chronic obstructive pulmonary disease, unspecified; Z88.5 Allergy status to narcotic agent; Z88.8 Allergy status to other drugs, medicaments and biological substances; Z79.899 Other long term (current) drug therapy
CPT/HCPCS: 36415; 80053; 85025; 96372; 99283; J1885

== ENCOUNTER 2021-04-14 09:04 | Emergency (ER) | payer MEDICARE, MEDICAID ==
[~2021-04-14] VITALS: Ht 188 cm; Wt 113.4 kg
[2021-04-14 09:08] VITALS: BP_SYST 131
[2021-04-14] MEDS ORDERED: KETOROLAC TROMETHAMINE 60 MG/2 ML VIAL IM ONE ×2 (09:30→10:15)
[2021-04-14] MEDS ORDERED: HYDROcodone/ACETAMIN 5-325 MG TAB (NORCO/ VICODIN) PO ONE (10:00)
[2021-04-14 12:00] VITALS: BP_SYST 151
== END 2021-04-14 12:00 | disposition home or self-care (01) ==
LOC: SED 09:04
DX: S80.02XA Contusion of left knee, initial encounter (principal); S90.32XA Contusion of left foot, initial encounter; I10 Essential (primary) hypertension; E11.9 Type 2 diabetes mellitus without complications; J44.9 Chronic obstructive pulmonary disease, unspecified; Z88.5 Allergy status to narcotic agent; Z88.8 Allergy status to other drugs, medicaments and biological substances; Z79.899 Other long term (current) drug therapy; W01.0XXA Fall on same level from slipping, tripping and stumbling without subsequent striking against object, initial encounter; Y93.89 Activity, other specified; Y92.89 Other specified places as the place of occurrence of the external cause; Y99.8 Other external cause status
CPT/HCPCS: 73564; 73630; 96372; 99284; J1885

== ENCOUNTER 2021-05-01 02:13 | Inpatient (IN) | payer MEDICARE, MEDICAID, SELFPAY ==
[~2021-05-01] VITALS: Ht 188 cm; Wt 121.7 kg
[2021-05-01] VITALS (8 sets, daily range): BP systolic 121–143
--- NOTE | 2021-05-01 02:20 | NUR ---
Patient to ER bed 4 to gown for evaluation. Side rails up.
--- NOTE | 2021-05-01 02:20 | NUR ---
PT AAO AND WAS BIB AMBULANCE BLS FOR MECHANICAL FALL FROM [facility]. PT REPORTS THAT HE TRIPPED ON HIS WALKER WHEN HE WAS WALKING TO THE RESTROOM AND FELL ONTO HIS BOTTOM. PT REPORTS INCREASING BACK PAIN SINCE THE FALL THIS EVENING AND REPORTS IT 9/10 PAIN SCALE. PT ALSO REPORTS DISTENDED ABDOMEN X 1 WEEK AND NO BOWEL MOVEMENT FOR THAT AMOUNT OF TIME. PT HAS BILATERAL PITTING EDEMA NOTED IN HIS LOWED EXTREMITIES. SPO2 NOTED 88% ON ARRIVAL TO ED. PT PLACED ON 2 LITERS OF 02 PER MD ORDER. SPO2 94% WITH O2.
--- NOTE | 2021-05-01 02:40 | NUR ---
DR. MCCRARY AT BEDSIDE TO ASSESS.
[2021-05-01] MEDS ORDERED: PRO40 PO (02:54)
[2021-05-01] MEDS ORDERED: PIOG30TA70 PO (02:54)
[2021-05-01] MEDS ORDERED: LINA145C PO (02:54)
[2021-05-01] MEDS ORDERED: POTA20TA83 PO (02:54)
[2021-05-01] MEDS ORDERED: fentaNYL CITRATE/PF 100 MCG/2 ML AMP IVP ONE ×2 (03:00→04:00)
[2021-05-01] MEDS ORDERED: GLIP5TAB13 PO (03:04)
[2021-05-01] MEDS ORDERED: ROBAC PO (03:04)
[2021-05-01] MEDS ORDERED: SITA100T11 PO (03:04)
[2021-05-01] MEDS ORDERED: OXIC30CR2 TP (03:04)
[2021-05-01] MEDS ORDERED: CYCL-10 PO (03:04)
[2021-05-01] MEDS ORDERED: TAMS-11 PO (03:04)
[2021-05-01] MEDS ORDERED: ONDA4TAB5 PO (03:05)
[2021-05-01] MEDS ORDERED: GABA-529 PO (03:05)
[2021-05-01] MEDS ORDERED: fentaNYL CITRATE/PF 100 MCG/2 ML AMP ONE (03:05)
--- NOTE | 2021-05-01 03:11 | NUR ---
Portable X Ray at bedside, well tolerated
[2021-05-01 03:16] LABS: BASOPHILS % (AUTO) 0.5 % (0.0-2.0); EOSINOPHILS # (AUTO) 0.1 K/uL (0.0-0.4); EOSINOPHILS % (AUTO) 2.8 % (0.0-4.0); HEMATOCRIT 33.5 % (36-54); HEMOGLOBIN 10.4 g/dL (14.0-18.0); LYMPHOCYTES # (AUTO) 1.3 K/uL (1.0-5.5); LYMPHOCYTES % (AUTO) 28.1 % (20.5-51.5); MEAN CORPUSCULAR HEMOGLOBIN 25 pg (27-31); MEAN CORPUSCULAR HGB CONC 31 % (32-36); MEAN CORPUSCULAR VOLUME 80 fL (79.0-98.0); MONOCYTES # (AUTO) 0.3 K/uL (0.0-1.0); MONOCYTES % (AUTO) 7.4 % (1.7-9.3); NEUTROPHILS # (AUTO) 2.9 K/uL (1.8-7.7); NEUTROPHILS % (AUTO) 61.2 % (40.0-70.0); PLATELET COUNT (AUTO) 204 K/uL (130-430); RED BLOOD CELL COUNT(AUTO) 4.17 MIL/uL (4.2-6.2); RED CELL DISTRIBUTION WIDTH 17.2 % (9.0-15.0); WHITE BLOOD COUNT (AUTO) 4.7 K/uL (4.8-10.8)
--- NOTE | 2021-05-01 03:21 | NUR ---
Dr. Lopez [facility] for further pt eval
[2021-05-01 03:22] LABS: CREATININE 1.52 mg/dL (0.55-1.30); POTASSIUM 5.1 mmol/L (3.5-5.1)
[2021-05-01 03:27] LABS: ALBUMIN 3.7 g/dL (3.4-4.8); TOTAL BILIRUBIN 0.1 mg/dL (0.0-1.0)
--- NOTE | 2021-05-01 04:08 | NUR ---
Pt back from Radiology, in stable condition, well tolerated
[2021-05-01] MEDS ORDERED: FUROSEMIDE 40 MG/4 ML VIAL ONE (04:23)
[2021-05-01] MEDS ORDERED: FUROSEMIDE 40 MG/4 ML VIAL IVP ONE (04:30)
--- NOTE | 2021-05-01 04:30 | NUR ---
VSS Lasix IV adm, well tolerated
--- NOTE | 2021-05-01 05:00 | NUR ---
Lasix IV effective AEB 60 ml clear yellow urine output via urinal, urine sample sent to lab
--- NOTE | 2021-05-01 05:50 | NUR ---
Dr. Lamar Carrera called ED to give adm orders to pt going to Tele Floor. Bed assignment requested with floor charge, awaiting COVID Rapid to result
--- NOTE | 2021-05-01 06:15 | NUR ---
Assisted Pt to use bedside urinal no less than 3 times, outputd a total of 500 - 600 ml of clear yellow urine. Pt has been tolerating well
--- NOTE | 2021-05-01 07:22 | NUR ---
Pt. comfortable, waiting for covid result to transfer pt. to floor, pt. belonging form done, med rec. done by pm shift
[2021-05-01] MEDS ORDERED: ACETAMINOPHEN 500 MG TABLET PO ONE (07:45)
--- NOTE | 2021-05-01 08:10 | NUR ---
ADMISSION NOTE Received patient from ER via gurney. Patient admitted with diagnosis of respiratory failure. Patient is awake, alert, oriented X . Patient oriented to hospital room, call light, toileting, pain management and safety-teach back done. Patient informed that will be nurse and that their room number is . Personal belongings checked and Belongings List documented. Call light within reach.
--- NOTE | 2021-05-01 08:18 | NUR ---
Patient will be admitted to care of Dr. Carrera Admitted to tele unit. Will go to room 105B. Belongings list completed. Complete and up to date summary report printed. SBAR report to be given at bedside with opportunity for questions.
--- NOTE | 2021-05-01 09:04 | NUR ---
CONSULTATION: REASON FOR CONSULT: PULMONARY EDEMA/ RES FAIL CONSULTING PHYSICIAN: NETTIE KEEN ORDERED BY: Samira KEEN [phone] SPOKE WITH [place]
--- NOTE | 2021-05-01 09:40 | NUR ---
CONSULTATION: REASON FOR CONSULT: PULMONARY EDEMA/ RES FAIL CONSULTING PHYSICIAN: MILEY ORDERED BY: Samira KEEN USED PAGER [phone]
[2021-05-01] MEDS ORDERED: ACETAMINOPHEN 325 MG TABLET PO PRN ×4 (10:00→13:00)
[2021-05-01] MEDS ORDERED: GABAPENTIN 300 MG CAPSULE PO ONE (11:15)
[2021-05-01] MEDS: PIPERACILLIN/TAZO 2.25G/DEX-IS 50 ML IV SCH ×2 (12:25→17:44)
[2021-05-01] MEDS ORDERED: guaiFENesin 200 MG/CODEINE 20 MG/ 10 ML UDC PO PRN (12:45)
[2021-05-01] MEDS ORDERED: NALOXONE HCL 0.4 MG/ML AMP (NARCAN) IVP PRN ×2 (12:45)
[2021-05-01] MEDS ORDERED: IPRATROPIUM BROM 0.5 MG/2.5 ML VIAL.NEB (ATROVENT) INH PRN (12:45)
[2021-05-01] MEDS ORDERED: HYDROcodone/ACETAMIN 5-325 MG TAB (NORCO/ VICODIN) PO PRN (12:45)
[2021-05-01] MEDS ORDERED: ONDANSETRON 4 MG ODT TAB PO PRN (12:45)
[2021-05-01] MEDS ORDERED: TAMSULOSIN HCL 0.4 MG CAP PO ONE (13:00)
[2021-05-01] MEDS: IPRATROPIUM/ALBUTEROL SULFATE 3 ML AMPUL.NEB (DUONEB) INH SCH ×3 (13:00→20:25)
[2021-05-01] MEDS ORDERED: DOCUSATE SODIUM 100 MG CAPSULE PO PRN (13:00)
[2021-05-01] MEDS ORDERED: PANTOPRAZOLE SODIUM 40 MG TAB PO ONE (13:00)
[2021-05-01] MEDS ORDERED: NAPROXEN 250 MG TABLET PO ONE (13:15)
[2021-05-01] MEDS ORDERED: PIOGLITAZONE HCL 15 MG TABLET PO ONE (13:15)
[2021-05-01] MEDS ORDERED: LOSARTAN POTASSIUM 50 MG TABLET (COZAAR) PO ONE (13:15)
[2021-05-01] MEDS ORDERED: METOCLOPRAMIDE HCL 10 MG TABLET PO ONE (13:15)
[2021-05-01] MEDS ORDERED: LACTULOSE 20 GM/30 ML UDC PO ONE (13:15)
--- NOTE | 2021-05-01 13:31 | NUR ---
CONSULTATION: REASON FOR CONSULT: FECAL IMPACTION CONSULTING PHYSICIAN: THERON ORDERED BY: Samira KEEN DR IS TABLET MAKING MACHINE OPERATOR FOR DR CRUMP [phone] SPOKE WITH CECIL AT HOSPITAL AND IS AWARE OF THE CONSULT
[2021-05-01] MEDS: NORMAL SALINE 5 ML DISP.SYRIN IVF SCH ×4 (14:00→21:48)
[2021-05-01] MEDS: ALBUTEROL SULFATE 0.083% 2.5 MG/3 ML VIAL.NEB INH PRN (14:50)
[2021-05-01] MEDS ORDERED: DEXTROSE 50%-WATER 50 ML DISP.SYRIN IVP PRN (15:45)
[2021-05-01] MEDS ORDERED: D5W 1,000 ML IV PRN (15:45)
[2021-05-01] MEDS ORDERED: GLUCOSE (DEXTROSE) ORAL GEL -Adults PO PRN (15:45)
[2021-05-01] MEDS ORDERED: MAGNESIUM CITRATE 300 ML ORAL SOLUTION PO ONE (16:00)
[2021-05-01] MEDS: MINERAL OIL 30 ML UDC PO SCH (17:43)
[2021-05-01] MEDS: GABAPENTIN 300 MG CAPSULE PO SCH ×2 (17:44→22:13)
[2021-05-01] MEDS: metFORMIN HCL 500 MG TABLET PO SCH (17:46)
--- NOTE | 2021-05-01 18:30 | NUR ---
CLOSING NOTES: PATIENT IS AWAKE LAYING DOWN IN BED. TOLERATED OXYGEN ON 4L VIA NASAL CANNULA WITH NO DISTRESS NOTED. IV LINE PATENT AND INTACT WITH NO INFILTRATION NOTED. DENIES ANY PAIN AT THE MOMENT. PATIENT IN STABLE. SAFETY, FALL, AND ASPIRATION PRECAUTIONS REMAINED IN PLACE. BED LOCKED IN LOWEST POSITION AND CALL LIGHT IN REACH. WILL ENDORSE PATIENT CARE TO ONCOMING ETYMOLOGY PROFESSOR NURSE.
[2021-05-01] MEDS: BUDESONIDE 0.5 MG/2 ML AMPUL.NEB INH SCH (20:25)
[2021-05-01] MEDS ORDERED: OXICONAZOLE NITRATE TP SCH (21:00)
[2021-05-01] MEDS: NAPROXEN 250 MG TABLET PO SCH ×2 (21:00→21:46)
[2021-05-01] MEDS: CYCLOBENZAPRINE HCL 10 MG TABLET (FLEXERIL) PO SCH (21:44)
[2021-05-01] MEDS: DOCUSATE SODIUM 100 MG CAPSULE PO SCH (21:44)
[2021-05-01] MEDS: FUROSEMIDE 20 MG TABLET PO SCH (21:45)
[2021-05-01] MEDS: METOCLOPRAMIDE HCL 10 MG TABLET PO SCH (21:47)
[2021-05-01] MEDS: GABAPENTIN 100 MG CAPSULE PO PRN ×3 (21:49→22:12)
[2021-05-02] MEDS: MINERAL OIL 30 ML UDC PO SCH ×5 (00:10→17:23)
[2021-05-02] MEDS: PIPERACILLIN/TAZO 2.25G/DEX-IS 50 ML IV SCH ×5 (00:10→23:14)
[2021-05-02 00:26] VITALS: BP_SYST 128
[2021-05-02] MEDS: IPRATROPIUM/ALBUTEROL SULFATE 3 ML AMPUL.NEB (DUONEB) INH SCH ×4 (01:00→20:30)
[2021-05-02 06:52] LABS: CALCIUM 9.5 mg/dL (8.4-11.0); CREATININE 1.39 mg/dL (0.55-1.30); PHOSPHORUS 3.8 mg/dL (2.7-4.5); POTASSIUM 5.1 mmol/L (3.5-5.1)
[2021-05-02] MEDS: NORMAL SALINE 5 ML DISP.SYRIN IVF SCH ×6 (06:55→22:00)
[2021-05-02] MEDS: HYDROcodone/ACETAMIN 5-325 MG TAB (NORCO/ VICODIN) PO PRN ×3 (06:59→20:47)
[2021-05-02 07:24] LABS: BASOPHILS % (AUTO) 0.5 % (0.0-2.0); EOSINOPHILS # (AUTO) 0.1 K/uL (0.0-0.4); EOSINOPHILS % (AUTO) 1.9 % (0.0-4.0); HEMATOCRIT 33.2 % (36-54); HEMOGLOBIN 10.1 g/dL (14.0-18.0); LYMPHOCYTES # (AUTO) 1.1 K/uL (1.0-5.5); LYMPHOCYTES % (AUTO) 25.3 % (20.5-51.5); MEAN CORPUSCULAR HEMOGLOBIN 25 pg (27-31); MEAN CORPUSCULAR HGB CONC 30 % (32-36); MEAN CORPUSCULAR VOLUME 81 fL (79.0-98.0); MONOCYTES # (AUTO) 0.4 K/uL (0.0-1.0); MONOCYTES % (AUTO) 9.5 % (1.7-9.3); NEUTROPHILS # (AUTO) 2.7 K/uL (1.8-7.7); NEUTROPHILS % (AUTO) 62.8 % (40.0-70.0); PLATELET COUNT (AUTO) 220 K/uL (130-430); RED CELL DISTRIBUTION WIDTH 17.3 % (9.0-15.0); WHITE BLOOD COUNT (AUTO) 4.4 K/uL (4.8-10.8)
[2021-05-02] MEDS: BUDESONIDE 0.5 MG/2 ML AMPUL.NEB INH SCH ×2 (07:39→20:40)
--- NOTE | 2021-05-02 07:40 | NUR ---
OPENING NOTES PT AWAKE, ALERT, AND ORIENTED. NONLABORED BREATHING NOTED, RECEIVING O2 AT 3LPM VIA NASAL CANNULA. IV LINE INTACT AND PATENT, NO SIGNS OF INFILTRATION NOTED. NO ACUTE DISTRESS NOTED. ALL NEEDS MET. CALL LIGHT IN REACH. FALL AND ASPIRATION PRECAUTIONS IN PLACE.
[2021-05-02 08:00] VITALS: BP_SYST 113
--- NOTE | 2021-05-02 08:10 | NUR ---
PATIENT REQUESTED TO VERIFY MED LIST, CALLED [facility] FOR MED LIST, CONFIRMED PT'S NAME AND , GAVE FAX NUMBER [phone]
[2021-05-02] MEDS: FUROSEMIDE 20 MG TABLET PO SCH (08:44)
[2021-05-02] MEDS: LACTULOSE 20 GM/30 ML UDC PO SCH (08:44)
[2021-05-02] MEDS: PIOGLITAZONE HCL 15 MG TABLET PO SCH (08:45)
[2021-05-02] MEDS: METOCLOPRAMIDE HCL 10 MG TABLET PO SCH ×2 (08:46→20:47)
[2021-05-02] MEDS: PANTOPRAZOLE SODIUM 40 MG TAB PO SCH (08:46)
[2021-05-02] MEDS: TAMSULOSIN HCL 0.4 MG CAP PO SCH (08:47)
[2021-05-02] MEDS: LOSARTAN POTASSIUM 50 MG TABLET (COZAAR) PO SCH (08:47)
[2021-05-02] MEDS: metFORMIN HCL 500 MG TABLET PO SCH ×2 (08:50→17:15)
[2021-05-02] MEDS: GABAPENTIN 300 MG CAPSULE PO SCH ×3 (08:50→20:43)
[2021-05-02] MEDS: DOCUSATE SODIUM 100 MG CAPSULE PO SCH ×2 (08:50→20:46)
[2021-05-02] MEDS: POTASSIUM CHLORIDE 10 MEQ TAB.PRT.SR PO SCH (08:50)
[2021-05-02] MEDS: NAPROXEN 250 MG TABLET PO SCH ×2 (08:51→20:46)
--- NOTE | 2021-05-02 08:57 | NUR ---
ROUTINE MEDS ADMINISTERED ORDERED PER MD, EDUCATION GIVEN, TOLERATED WELL. PT REFUSED TRADJENTA, STATED HE DOES NOT TAKE IT ANYMORE, EDUCATION GIVEN, PT VERBALIZED UNDERSTANDING, PT CONTINUE TO REFUSE.
[2021-05-02] MEDS ORDERED: NON-FORMULARY MEDICATION (Linaclotide (Linzess) 145 MCG) PO SCH (09:00)
[2021-05-02] MEDS ORDERED: NS 500 ML IV ONE (10:45)
[2021-05-02] MEDS: NACL 0.9% 1,000 ML IV SCH (11:49)
--- NOTE | 2021-05-02 11:53 | NUR ---
fluids administered as ordered per md, education given, tolerated well
[2021-05-02 13:39] VITALS: BP_SYST 114
--- NOTE | 2021-05-02 13:55 | NUR ---
CONSULTATION PAGED/CALLED Reason for Consultation: [] CHUCKY Person Who was Notified: [] LETTY Consulting Physician: [] Forrest HER Plastic Production Machine Setter Specialty: [] NEPHROLOGY Ordering Physician: [] Samira ALEMAN
--- NOTE | 2021-05-02 14:31 | NUR ---
pt c/o pain, bp 122/69, administered prn pain meds and routine meds as ordered per md, education given, tolerated well.
[2021-05-02 15:46] VITALS: BP_SYST 114
--- NOTE | 2021-05-02 17:24 | NUR ---
routine meds administered as ordered per md, education given, tolerated well. pt refused mineral oil at this time, education given, pt verbalized understanding and continue to refuse
[2021-05-02] MEDS: GABAPENTIN 100 MG CAPSULE PO PRN (17:38)
--- NOTE | 2021-05-02 17:39 | NUR ---
pt c/o nerve pain, administered prn meds as ordered per md, education given, tolerated well.
--- NOTE | 2021-05-02 17:56 | NUR ---
Dietitian Recommendations Continue current diet, as ordered. KW, RD
--- NOTE | 2021-05-02 18:58 | NUR ---
CLOSING NOTES PT AWAKE, ALERT, AND ORIENTED. NONLABORED BREATHING NOTED, NO S/S OF SOB NOTED. IV LINE INTACT AND PATENT, NO SIGNS OF INFILTRATION NOTED, FLUIDS RUNNING ORDERED. NO ACUTE DISTRESS NOTED. ALL NEEDS MET. CALL LIGHT IN REACH. FALL AND ASPIRATION PRECAUTIONS IN PLACE. WILL ENDORSE TO NOC NURSE
--- NOTE | 2021-05-02 19:25 | NUR ---
CHANGE OF SHIFT; endorsed by day shift. pt. been c/o his pain medication that its not the same what he is getting from the halfway home. in no acute distress. call light within reach, pt. room close to the nurses station. on fall risk, bed alarm off since pt. always voids sitting up at the edge of the bed.
[2021-05-02 20:00] VITALS: BP_SYST 144
--- NOTE | 2021-05-02 20:05 | NUR ---
NOTES: pt. awake, alert and oriented. pretty awake and waiting for his pain medication which is not due yet. VS checked. IV infusing via rt. hand , nored swelling on both lower extremities and with very dry scaly skin. on room air, noted slight short of breath on exertion., off O2. on compliance monitor and shows sinus rhythm. pt. needs attended.
[2021-05-02] MEDS: CYCLOBENZAPRINE HCL 10 MG TABLET (FLEXERIL) PO SCH (20:44)
--- NOTE | 2021-05-02 20:47 | NUR ---
NOTES: pNorco po given for c/o lower back/neck and lboth lower extrwmities pain which is chronic. repositioned self. keep HOB elevated.
--- NOTE | 2021-05-02 22:00 | NUR ---
NOTES: pt. looking for his call light , fell at the lower side rails, pt. up sitting at the edge of the bed and voided per urinal. pt. been arguing about the frequency of his pain medication , he want MD to be called to change it to every 4 hrs instead of every 6 hours.
--- NOTE | 2021-05-02 23:07 | NUR ---
NOTES: Samira Manzano, called back and informed him about the pt. complain about his oain medication.
[2021-05-02] MEDS ORDERED: HYDROcodone/ACETAMIN 5-325 MG TAB (NORCO/ VICODIN) PO PRN (23:15)
--- NOTE | 2021-05-03 00:01 | NUR ---
NOTES: pt. still awake, ate snacks given, sitting at the edge of bed, helped to get back to bed ,lifted up both legs.
[2021-05-03 00:26] VITALS: BP_SYST 135
[2021-05-03] MEDS: NACL 0.9% 1,000 ML IV SCH ×2 (00:33→13:45)
[2021-05-03] MEDS: HYDROcodone/ACETAMIN 5-325 MG TAB (NORCO/ VICODIN) PO PRN ×3 (00:34→09:32)
--- NOTE | 2021-05-03 00:40 | NUR ---
NOTES: medicated for c/o back/neck and lower extremities pain. repositioned self. IV antibiotic infusing. needs attended. pt. been voiding frequently. call light within reach.
--- NOTE | 2021-05-03 02:06 | NUR ---
Pt refused to try the CPAP machine Addendum: 05/03/21 at 0206 by Hermelinda Taylor RT Amended: Links added.
[2021-05-03] MEDS: IPRATROPIUM/ALBUTEROL SULFATE 3 ML AMPUL.NEB (DUONEB) INH SCH ×4 (02:13→22:18)
[2021-05-03] MEDS: GABAPENTIN 100 MG CAPSULE PO PRN (02:46)
--- NOTE | 2021-05-03 02:46 | NUR ---
NOTES: pt. awake. c/o nerve pain and want his Neurontin and given as ordered. voided per urinal.
[2021-05-03] MEDS: PIPERACILLIN/TAZO 2.25G/DEX-IS 50 ML IV SCH ×3 (05:07→19:31)
[2021-05-03] MEDS: MINERAL OIL 30 ML UDC PO SCH ×4 (05:07→19:31)
[2021-05-03] MEDS: NORMAL SALINE 5 ML DISP.SYRIN IVF SCH ×6 (05:26→22:00)
--- NOTE | 2021-05-03 05:30 | NUR ---
NOTES: pt. called for his pain med c/o lower back /neck amd lower extremities pain, still asking the OXycodone and told him its not ordered and its only Hydrocodonem indormed to ask MD this am, will wait till the morning, am blood draw done. been using O2 on and off. appears shoirt of breath on exertion. call light at bedside.
[2021-05-03 06:21] LABS: BASOPHILS % (AUTO) 0.3 % (0.0-2.0); EOSINOPHILS # (AUTO) 0.1 K/uL (0.0-0.4); EOSINOPHILS % (AUTO) 3.2 % (0.0-4.0); HEMATOCRIT 33.4 % (36-54); HEMOGLOBIN 10.4 g/dL (14.0-18.0); LYMPHOCYTES # (AUTO) 1.1 K/uL (1.0-5.5); LYMPHOCYTES % (AUTO) 25.9 % (20.5-51.5); MEAN CORPUSCULAR HEMOGLOBIN 25 pg (27-31); MEAN CORPUSCULAR HGB CONC 31 % (32-36); MEAN CORPUSCULAR VOLUME 80 fL (79.0-98.0); MONOCYTES # (AUTO) 0.3 K/uL (0.0-1.0); MONOCYTES % (AUTO) 7.3 % (1.7-9.3); NEUTROPHILS # (AUTO) 2.7 K/uL (1.8-7.7); NEUTROPHILS % (AUTO) 63.3 % (40.0-70.0); PLATELET COUNT (AUTO) 227 K/uL (130-430); RED BLOOD CELL COUNT(AUTO) 4.18 MIL/uL (4.2-6.2); RED CELL DISTRIBUTION WIDTH 17.6 % (9.0-15.0); WHITE BLOOD COUNT (AUTO) 4.3 K/uL (4.8-10.8)
--- NOTE | 2021-05-03 06:35 | NUR ---
CLOSING NOTES; pt. calm and able to rest. IVF patent. no acute distress. for further care and assistance. will endorse to incoming shift. call light at bedside.
[2021-05-03 06:55] LABS: C-REACTIVE PROTEIN QUANT 0.8 mg/dL (0-0.5); CALCIUM 9.2 mg/dL (8.4-11.0); CREATININE 1.65 mg/dL (0.55-1.30); PHOSPHORUS 3.2 mg/dL (2.7-4.5); POTASSIUM 4.9 mmol/L (3.5-5.1)
[2021-05-03 07:07] LABS: ERYTHROCYTE SEDIMENTATION RATE 38 MM/HR (0-15)
[2021-05-03] MEDS: BUDESONIDE 0.5 MG/2 ML AMPUL.NEB INH SCH ×2 (07:15→22:19)
--- NOTE | 2021-05-03 07:20 | NUR ---
OPENING NOTES: RECEIVED REPORT FROM TARIFF COUNSEL NURSE. PATIENT IS AWAKE, ALERT LAYING DOWN IN BED. TOLERATING OXYGEN ON 3L VIA NASAL CANNULA WITH NO DISTRESS NOTED. IV LINE PATENT AND INTACT WITH NO INFILTRATION NOTED. SAFETY, FALL, AND ASPIRATION PRECAUTIONS ARE IN PLACE. BED LOCKED IN LOWEST POSITION AND CALL LIGHT IN REACH. WILL CONTINUE TO MONITOR PATIENT FOR ANY CHANGES.
[2021-05-03 08:00] VITALS: BP_SYST 147
[2021-05-03] MEDS: LACTULOSE 20 GM/30 ML UDC PO SCH (08:48)
[2021-05-03] MEDS: metFORMIN HCL 500 MG TABLET PO SCH ×2 (08:50→19:32)
[2021-05-03] MEDS: TAMSULOSIN HCL 0.4 MG CAP PO SCH (08:50)
[2021-05-03] MEDS: NAPROXEN 250 MG TABLET PO SCH ×2 (08:50→20:56)
[2021-05-03] MEDS: DOCUSATE SODIUM 100 MG CAPSULE PO SCH ×2 (08:50→20:57)
[2021-05-03] MEDS: METOCLOPRAMIDE HCL 10 MG TABLET PO SCH ×2 (08:50→20:57)
[2021-05-03] MEDS: PIOGLITAZONE HCL 15 MG TABLET PO SCH (08:51)
[2021-05-03] MEDS: LOSARTAN POTASSIUM 50 MG TABLET (COZAAR) PO SCH (08:51)
[2021-05-03] MEDS: GABAPENTIN 300 MG CAPSULE PO SCH ×3 (08:51→20:57)
[2021-05-03] MEDS: PANTOPRAZOLE SODIUM 40 MG TAB PO SCH (08:51)
[2021-05-03] MEDS: POTASSIUM CHLORIDE 10 MEQ TAB.PRT.SR PO SCH (08:51)
[2021-05-03 12:00] VITALS: BP_SYST 139
[2021-05-03] MEDS ORDERED: NALOXONE HCL 0.4 MG/ML AMP (NARCAN) IVP PRN ×2 (12:15)
[2021-05-03] MEDS: OXYCODONE/ACETAMINOPHEN 5-325 TABLET PO PRN ×2 (13:45→21:04)
[2021-05-03] MEDS: LORazepam 2 MG/ML VIAL IVP PRN (15:12)
--- NOTE | 2021-05-03 17:00 | NUR ---
S/P FALL; WHILE DOING ROUNDS AND ABOUT TO CHECK PATIENT'S LEADS AND FOUND HIM ON THE FLOOR. NO INJURY NOTED. PATIENT DENIES ANY PAIN AND DISCOMFORT. PATIENT VITALS ARE WITHIN NORMAL RANGES. MD AND FAMILY MADE AWARE ABOUT THE INCIDENT.
[2021-05-03 17:30] VITALS: BP_SYST 139
--- NOTE | 2021-05-03 18:30 | NUR ---
CLOSING NOTES: PATIENT IS AWAKE, ALERT LAYING DOWN IN BED. TOLERATING OXYGEN ON 3L VIA NASAL CANNULA WITH NO DISTRESS NOTED. IV LINE PATENT AND INTACT WITH NO INFILTRATION NOTED. SAFETY, FALL, AND ASPIRATION PRECAUTIONS REMAINED IN PLACE. BED LOCKED IN LOWEST POSITION AND CALL LIGHT IN REACH. WILL ENDORSE PATIENT CARE TO ONCOMING SUPERVISOR BEATER ROOM NURSE.
--- NOTE | 2021-05-03 18:58 | NUR ---
PATIENT HAS NEW IV LINE ON RIGHT AC. COVERED WITH KERLIX. ASEPTIC TECHNIQUE OBSERVED. WITH BLOOD RETURN AND FLASHED WITH NS.
--- NOTE | 2021-05-03 19:30 | NUR ---
CHANGE OF SHIFT; pt. awake. sitting at he edge of the bed, S/P fall today, bed alarm on. no acute distress. call light within reach.
--- NOTE | 2021-05-03 20:00 | NUR ---
NOTES: pt.sitting at the edge of the bed, reminded to be careful, asked to scoot back so he wont slide own the bed. VS checked. IV site patent. been using urinal frequently. both legs remain edematous. needs help getting back to bed. GLOVE FINISHER assisting. on monitoring engineer and shows sinus rhythm.
[2021-05-03 20:15] VITALS: BP_SYST 141
[2021-05-03] MEDS: CYCLOBENZAPRINE HCL 10 MG TABLET (FLEXERIL) PO SCH (20:55)
--- NOTE | 2021-05-03 21:05 | NUR ---
NOTES: medicated for c/o generalized pain. helped repositioned in bed. call light at bedside.
[2021-05-04 00:06] VITALS: BP_SYST 138
[2021-05-04] MEDS: MINERAL OIL 30 ML UDC PO SCH ×5 (00:19→23:29)
[2021-05-04] MEDS: PIPERACILLIN/TAZO 2.25G/DEX-IS 50 ML IV SCH ×2 (00:19→06:04)
--- NOTE | 2021-05-04 00:30 | NUR ---
NOTES: 'pt. woke ,quite hallucinating. quite drowsy trying to wake up. repositioned. IVF patent, IV antibiotic infusing.
[2021-05-04] MEDS: IPRATROPIUM/ALBUTEROL SULFATE 3 ML AMPUL.NEB (DUONEB) INH SCH ×3 (01:49→14:00)
--- NOTE | 2021-05-04 02:00 | NUR ---
NOTES: pt. voided per urinal. pt. pretty drowsy from medication. needs attended.
--- NOTE | 2021-05-04 03:00 | NUR ---
NOTES: 'pt. been attempting to void sitting up at the edge of the bed but getting sleepy, afraid he might fall , reminded if he cant go will try later, finally voided. back to bed with help. HOB elevated.
[2021-05-04 04:00] VITALS: BP_SYST 139
--- NOTE | 2021-05-04 04:40 | NUR ---
NOTES: report given to nurse Johan [facility]. IVF patent. kept O2 @ 3liters per nasal cannula, kept HOB elevated for easier breathing. been intermittently sitting up in bed to void per urinal , on fall risk precautions, bed alarm on. call light within reach.
--- NOTE | 2021-05-04 04:45 | NUR ---
Received patient from RN using SBAR approach.
[2021-05-04] MEDS: HYDROcodone/ACETAMIN 5-325 MG TAB (NORCO/ VICODIN) PO PRN ×2 (04:52→17:39)
[2021-05-04] MEDS: OXYCODONE/ACETAMINOPHEN 5-325 TABLET PO PRN ×3 (04:52→20:50)
[2021-05-04] MEDS: NORMAL SALINE 5 ML DISP.SYRIN IVF SCH ×6 (06:05→20:50)
[2021-05-04 07:01] LABS: BASOPHILS % (AUTO) 0.3 % (0.0-2.0); EOSINOPHILS # (AUTO) 0.2 K/uL (0.0-0.4); EOSINOPHILS % (AUTO) 3.6 % (0.0-4.0); HEMATOCRIT 33.1 % (36-54); HEMOGLOBIN 10.3 g/dL (14.0-18.0); LYMPHOCYTES # (AUTO) 0.9 K/uL (1.0-5.5); LYMPHOCYTES % (AUTO) 22.1 % (20.5-51.5); MEAN CORPUSCULAR HEMOGLOBIN 25 pg (27-31); MEAN CORPUSCULAR HGB CONC 31 % (32-36); MEAN CORPUSCULAR VOLUME 79 fL (79.0-98.0); MONOCYTES # (AUTO) 0.3 K/uL (0.0-1.0); MONOCYTES % (AUTO) 6.5 % (1.7-9.3); NEUTROPHILS # (AUTO) 2.8 K/uL (1.8-7.7); NEUTROPHILS % (AUTO) 67.5 % (40.0-70.0); PLATELET COUNT (AUTO) 230 K/uL (130-430); RED BLOOD CELL COUNT(AUTO) 4.19 MIL/uL (4.2-6.2); RED CELL DISTRIBUTION WIDTH 17.3 % (9.0-15.0); WHITE BLOOD COUNT (AUTO) 4.2 K/uL (4.8-10.8)
[2021-05-04] MEDS: BUDESONIDE 0.5 MG/2 ML AMPUL.NEB INH SCH ×2 (07:11→19:00)
[2021-05-04 07:26] LABS: C-REACTIVE PROTEIN QUANT 1.5 mg/dL (0-0.5); CALCIUM 9.7 mg/dL (8.4-11.0); CREATININE 1.52 mg/dL (0.55-1.30); PHOSPHORUS 3.2 mg/dL (2.7-4.5); POTASSIUM 5.1 mmol/L (3.5-5.1); TOTAL BILIRUBIN 0.5 mg/dL (0.0-1.0)
--- NOTE | 2021-05-04 08:00 | NUR ---
OPENING NOTES: PATIENT IS RESTING IN BED. TOLERATING OXYGEN AT 3L VIA NC, NO DISTRESS NOTED. IV PATENT AND INTACT WITH NO INFILTRATION . PATIENT STATES WANT MORE SLEEP SAFETY, FALL, AND ASPIRATION PRECAUTIONS ARE IN PLACE. BED LOCKED IN LOWEST POSITION AND CALL LIGHT IN REACH. SAFETY MAINTAINED
[2021-05-04 08:15] VITALS: BP_SYST 145
--- NOTE | 2021-05-04 08:40 | NUR ---
PHYSICAL THERAPY CO-SIGN The Physical Therapy Progress Notes documented by [employer] have been reviewed. Reviewed/Co-Signed by: Stefano Amaya Documentation Done by: FRANC SHOEMAKER PTA Addendum: 05/04/21 at 0841 by Stefano Amaya PT Amended: Links added.
[2021-05-04] MEDS: DOCUSATE SODIUM 100 MG CAPSULE PO SCH ×2 (09:00→20:50)
[2021-05-04] MEDS: POTASSIUM CHLORIDE 10 MEQ TAB.PRT.SR PO SCH (09:44)
[2021-05-04] MEDS: NAPROXEN 250 MG TABLET PO SCH ×2 (09:44→20:49)
[2021-05-04] MEDS: LOSARTAN POTASSIUM 50 MG TABLET (COZAAR) PO SCH (09:45)
[2021-05-04] MEDS: metFORMIN HCL 500 MG TABLET PO SCH ×2 (09:45→18:00)
[2021-05-04] MEDS: TAMSULOSIN HCL 0.4 MG CAP PO SCH (09:45)
[2021-05-04] MEDS: GABAPENTIN 300 MG CAPSULE PO SCH ×3 (09:45→20:48)
[2021-05-04] MEDS: PIOGLITAZONE HCL 15 MG TABLET PO SCH (09:46)
[2021-05-04] MEDS: METOCLOPRAMIDE HCL 10 MG TABLET PO SCH ×2 (09:46→20:49)
[2021-05-04] MEDS: PANTOPRAZOLE SODIUM 40 MG TAB PO SCH (09:46)
[2021-05-04] MEDS: LACTULOSE 20 GM/30 ML UDC PO SCH (09:48)
[2021-05-04 11:07] VITALS: BP_SYST 145
[2021-05-04 11:20] LABS: ERYTHROCYTE SEDIMENTATION RATE 43 MM/HR (0-15)
[2021-05-04 12:00] VITALS: BP_SYST 142
[2021-05-04] MEDS: ALBUTEROL SULFATE 0.083% 2.5 MG/3 ML VIAL.NEB INH PRN (14:00)
--- NOTE | 2021-05-04 15:59 | NUR ---
EMELY note: late entry: D/W patient , the dcp to snf vs returning back to [facility]. The pt refused snf placement. I discussed dcp with Sylvester, nurse at the [facility], stated the pt is accepting back . The facility can accommodate the PT and home oxygen care. The vendors should contact admission office prior, for the DME delivery. >> faxed dc order and clinical info to Samantha at [place], emely at [facility]. The pt is to dc back to [facility] with HH/PT and home oxygen and DME/WC. The homehealth/PT was arranged by dr. Mclean's office.
--- NOTE | 2021-05-04 19:30 | NUR ---
OPENING NOTES: RECEIVED REPORT FROM DAY SHIFT NURSE. PATIENT IS AWAKE, SITTING AT BEDSIDE. TOLERATING OXYGEN ON ROOM AIR WITH NO DISTRESS NOTED. IV LINE PATENT AND INTACT WITH NO INFILTRATION NOTED. SAFETY, FALL, AND ASPIRATION PRECAUTIONS ARE IN PLACE. BED LOCKED IN LOWEST POSITION AND CALL LIGHT IN REACH. WILL CONTINUE TO MONITOR PATIENT FOR ANY CHANGES.
[2021-05-04 20:00] VITALS: BP_SYST 144
[2021-05-04] MEDS: CYCLOBENZAPRINE HCL 10 MG TABLET (FLEXERIL) PO SCH (20:49)
[2021-05-05] VITALS: BP_SYST 159
[2021-05-05] MEDS: IPRATROPIUM/ALBUTEROL SULFATE 3 ML AMPUL.NEB (DUONEB) INH SCH ×5 (01:00→19:26)
[2021-05-05] MEDS: HYDROcodone/ACETAMIN 5-325 MG TAB (NORCO/ VICODIN) PO PRN (01:26)
[2021-05-05] MEDS: GABAPENTIN 100 MG CAPSULE PO PRN (02:59)
[2021-05-05] MEDS: LORazepam 2 MG/ML VIAL IVP PRN ×2 (03:06→23:44)
[2021-05-05] MEDS: NORMAL SALINE 5 ML DISP.SYRIN IVF SCH ×4 (06:13→20:15)
[2021-05-05] MEDS: MINERAL OIL 30 ML UDC PO SCH ×4 (06:13→23:19)
--- NOTE | 2021-05-05 06:42 | NUR ---
CLOSING NOTE PATIENT IS RESTING IN BED. TOLERATING OXYGEN ON ROOM AIR WITH NO DISTRESS NOTED. IV LINE PATENT AND INTACT WITH NO INFILTRATION NOTED. SAFETY, FALL, AND ASPIRATION PRECAUTIONS ARE IN PLACE. BED LOCKED IN LOWEST POSITION AND CALL LIGHT IN REACH. WILL ENDORSE TO DAY SHIFT RN.
[2021-05-05 06:49] LABS: CALCIUM 9.7 mg/dL (8.4-11.0); CREATININE 1.4 mg/dL (0.55-1.30); PHOSPHORUS 3.3 mg/dL (2.7-4.5); POTASSIUM 4.7 mmol/L (3.5-5.1)
[2021-05-05] MEDS: BUDESONIDE 0.5 MG/2 ML AMPUL.NEB INH SCH ×2 (07:44→19:26)
--- NOTE | 2021-05-05 08:00 | NUR ---
Opening note patient resting in bed, a/ox3-4, periods of confusion, no signs of distress, patient is on room air, saturation is 93% at this time, educated the patient on plan of care and call light system, he verbalized understanding, bed in lowest position, three side rails up, bed alarm on, call light placed within reach, patient personal belongings within reach, fall and aspiration precautions in place.
[2021-05-05 08:04] LABS: BASOPHILS % (AUTO) 0.4 % (0.0-2.0); EOSINOPHILS # (AUTO) 0.1 K/uL (0.0-0.4); EOSINOPHILS % (AUTO) 3.4 % (0.0-4.0); HEMATOCRIT 31.2 % (36-54); HEMOGLOBIN 9.9 g/dL (14.0-18.0); LYMPHOCYTES % (AUTO) 28.6 % (20.5-51.5); MEAN CORPUSCULAR HEMOGLOBIN 25 pg (27-31); MEAN CORPUSCULAR HGB CONC 32 % (32-36); MEAN CORPUSCULAR VOLUME 79 fL (79.0-98.0); MONOCYTES # (AUTO) 0.2 K/uL (0.0-1.0); MONOCYTES % (AUTO) 6.9 % (1.7-9.3); NEUTROPHILS % (AUTO) 60.7 % (40.0-70.0); PLATELET COUNT (AUTO) 222 K/uL (130-430); RED BLOOD CELL COUNT(AUTO) 3.96 MIL/uL (4.2-6.2); RED CELL DISTRIBUTION WIDTH 17.3 % (9.0-15.0); WHITE BLOOD COUNT (AUTO) 3.3 K/uL (4.8-10.8)
[2021-05-05 08:05] LABS: C-REACTIVE PROTEIN QUANT 1.5 mg/dL (0-0.5)
[2021-05-05] MEDS: LACTULOSE 20 GM/30 ML UDC PO SCH (08:24)
[2021-05-05] MEDS: PANTOPRAZOLE SODIUM 40 MG TAB PO SCH (08:25)
[2021-05-05] MEDS: GABAPENTIN 300 MG CAPSULE PO SCH ×3 (08:25→20:14)
[2021-05-05] MEDS: PIOGLITAZONE HCL 15 MG TABLET PO SCH (08:25)
[2021-05-05] MEDS: TAMSULOSIN HCL 0.4 MG CAP PO SCH (08:26)
[2021-05-05] MEDS: NAPROXEN 250 MG TABLET PO SCH ×2 (08:26→20:14)
[2021-05-05] MEDS: POTASSIUM CHLORIDE 10 MEQ TAB.PRT.SR PO SCH (08:26)
[2021-05-05] MEDS: DOCUSATE SODIUM 100 MG CAPSULE PO SCH ×2 (08:27→20:14)
[2021-05-05] MEDS: metFORMIN HCL 500 MG TABLET PO SCH ×2 (08:28→17:34)
[2021-05-05] MEDS: METOCLOPRAMIDE HCL 10 MG TABLET PO SCH ×2 (08:28→20:13)
[2021-05-05] MEDS: LOSARTAN POTASSIUM 50 MG TABLET (COZAAR) PO SCH (08:28)
[2021-05-05] MEDS ORDERED: ENOXAPARIN SODIUM 40 MG/0.4 ML SYRINGE SUBCUT ONE (09:00)
[2021-05-05 09:29] LABS: ERYTHROCYTE SEDIMENTATION RATE 38 MM/HR (0-15)
[2021-05-05 09:30] VITALS: BP_SYST 153
[2021-05-05] MEDS: OXYCODONE/ACETAMINOPHEN 5-325 TABLET PO PRN ×2 (12:51→23:20)
[2021-05-05 12:54] VITALS: BP_SYST 132
--- NOTE | 2021-05-05 13:09 | NUR ---
DC planning/Samira Manzano rounds Called [facility] regarding home oxygen delivery and physical therapy arrangements as per MD orders - spoke with SOFA INSPECTOR in charge, he stated that the oxygen has not been delivered yet and that the physical therapy arrangements are not done yet, he stated that it should be sometime today, requested a call back as soon as possible when oxygen delivery is done and when physical therapy arrangements are made. Called [facility] and requested ambulance transport on will call for transport to [facility], possibly later today. Informed Samira Manzano regarding discharge barriers, MD aware and will inform MD of any other barriers as well. Will follow up as needed with DC planning.
[2021-05-05 13:18] VITALS: BP_SYST 117
--- NOTE | 2021-05-05 13:33 | NUR ---
EMELY note: I have been communicated with EMELY Singh /Alice of [facility] since this am. Per Samantha, [facility] will resume care, and [facility] will deliver a W/C and Oxygen concentrator at the [facility] and the portable tank to pt at bedside. No scheduled time given but said sometime this pm. She gave auth for [facility] auth # [id number] , Booked " Will Call " with [place] # [phone]. -- FARRAH Hartman made aware.
--- NOTE | 2021-05-05 13:58 | NUR ---
Wound Evaluation: Wound Consult ordered for Low Joe Score. Patient evaluated for a low Joe score of 17. Patient was awake, alert, oriented x 3 and received in a [place] Bed with an IsoFlex FRANKY mattress. Patient needs assist to turn in bed. Skin assessment: 1. Left Lower Extremity: Extremity inferior to knee has calor, dark discoloration, dry flaky skin and edema (2+ pitting firm edema extremity, non-pitting edema foot). No odor, no drainage. No wounds present. 2. Right Lower Extremity: Extremity inferior to knee has calor, dark discoloration, dry flaky skin and edema (2+ pitting firm edema extremity, non-pitting edema foot). No odor, no drainage. No wounds present. Recommend: Cleanse extremities and feet with mild soap and water. Pat dry. Apply Eucerin cream to dry skin areas on bilateral lower extremities and feet. Perform site care twice daily. Recommend: Encourage and assist patient as needed with repositioning every 2 hours with pillow support. Elevate, off-load and float bilateral heels with pillows. Offload pressure areas with pillows for pressure re-distribution. Perform skin care and monitor skin integrity Q shift. Use moisture barrier cream on moisture susceptible areas QID and PRN for soiling. Initiate low air-loss therapy.
[2021-05-05] MEDS ORDERED: POLYETHYLENE GLYCOL 3350, 17 GM/ POWD.PACK PO ONE (17:45)
[2021-05-05] MEDS ORDERED: MAGNESIUM CITRATE 300 ML ORAL SOLUTION PO ONE (17:45)
[2021-05-05] MEDS: EMOLLIENT COMBINATION NO.73 78 GM CREAM..G. TP SCH (18:17)
[2021-05-05 18:43] VITALS: BP_SYST 99
--- NOTE | 2021-05-05 18:51 | NUR ---
Closing note patient wanting to use the bedside commode to attempt to have BM, patient required x3 people to assist to commode, he tolerated well, patient unable to have a BM, assisted patient back into bed with x3 person assist, will endorse to NOC shift nurse, all other needs met for the patient, bed in lowest position, three side rails up, bed alarm on, call light within reach, fall and aspiration precautions in place.
--- NOTE | 2021-05-05 19:28 | NUR ---
OPENING NOTES: RECEIVED REPORT FROM DAY SHIFT NURSE. PATIENT IS AWAKE, RESTING IN BED. TOLERATING OXYGEN ON O2 VIA NC AT 2L WITH NO DISTRESS NOTED. IV LINE PATENT AND INTACT WITH NO INFILTRATION NOTED. SAFETY, FALL, AND ASPIRATION PRECAUTIONS ARE IN PLACE. BED LOCKED IN LOWEST POSITION AND CALL LIGHT IN REACH. BED ALARM IS ON. WILL CONTINUE TO MONITOR PATIENT FOR ANY CHANGES.
[2021-05-05 20:00] VITALS: BP_SYST 123
[2021-05-05] MEDS: CYCLOBENZAPRINE HCL 10 MG TABLET (FLEXERIL) PO SCH (20:13)
--- NOTE | 2021-05-05 23:50 | NUR ---
PRN MEDICATIONS PT REPORTING HEADACHE AND ANXIETY. PRN PERCOCET AND PRN ATIVAN GIVEN PER PT REQUEST. MEDICATIONS AND POTENTIAL SIDE EFFECTS DISCUSSED. VITAL SIGNS STABLE. SAFETY PRECAUTIONS IN PLACE, WILL MONITOR.
[2021-05-06] VITALS: BP_SYST 149
[2021-05-06] MEDS: IPRATROPIUM/ALBUTEROL SULFATE 3 ML AMPUL.NEB (DUONEB) INH SCH ×4 (01:36→19:46)
[2021-05-06] MEDS: GABAPENTIN 100 MG CAPSULE PO PRN (02:10)
[2021-05-06] MEDS: HYDROcodone/ACETAMIN 5-325 MG TAB (NORCO/ VICODIN) PO PRN ×2 (03:45→09:11)
[2021-05-06] MEDS: NORMAL SALINE 5 ML DISP.SYRIN IVF SCH ×3 (06:04→21:48)
[2021-05-06] MEDS: OXYCODONE/ACETAMINOPHEN 5-325 TABLET PO PRN ×2 (06:04→17:40)
[2021-05-06] MEDS: MINERAL OIL 30 ML UDC PO SCH ×3 (06:04→17:31)
--- NOTE | 2021-05-06 06:25 | NUR ---
IV RE-INSERTION: PRIOR IV NOTED TO BE OUT. Restarted on LEFT HAND. Successful after 2 attempts. Will observe for any signs of infiltration.
[2021-05-06 06:31] LABS: BASOPHILS % (AUTO) 0.5 % (0.0-2.0); EOSINOPHILS # (AUTO) 0.1 K/uL (0.0-0.4); EOSINOPHILS % (AUTO) 3.2 % (0.0-4.0); HEMATOCRIT 34.1 % (36-54); HEMOGLOBIN 10.6 g/dL (14.0-18.0); LYMPHOCYTES # (AUTO) 0.8 K/uL (1.0-5.5); MEAN CORPUSCULAR HEMOGLOBIN 25 pg (27-31); MEAN CORPUSCULAR HGB CONC 31 % (32-36); MEAN CORPUSCULAR VOLUME 79 fL (79.0-98.0); MONOCYTES # (AUTO) 0.3 K/uL (0.0-1.0); MONOCYTES % (AUTO) 9.5 % (1.7-9.3); NEUTROPHILS # (AUTO) 2.3 K/uL (1.8-7.7); NEUTROPHILS % (AUTO) 63.8 % (40.0-70.0); PLATELET COUNT (AUTO) 222 K/uL (130-430); RED CELL DISTRIBUTION WIDTH 17.5 % (9.0-15.0); WHITE BLOOD COUNT (AUTO) 3.6 K/uL (4.8-10.8)
[2021-05-06 06:46] LABS: CALCIUM 9.9 mg/dL (8.4-11.0); CREATININE 1.34 mg/dL (0.55-1.30); PHOSPHORUS 3.5 mg/dL (2.7-4.5); POTASSIUM 5.4 mmol/L (3.5-5.1)
--- NOTE | 2021-05-06 06:48 | NUR ---
CLOSING NOTE PATIENT IS AWAKE, RESTING IN BED. TOLERATING OXYGEN ON O2 VIA NC AT 2L WITH NO DISTRESS NOTED. IV LINE PATENT AND INTACT WITH NO INFILTRATION NOTED. SAFETY, FALL, AND ASPIRATION PRECAUTIONS ARE IN PLACE. BED LOCKED IN LOWEST POSITION AND CALL LIGHT IN REACH. BED ALARM IS ON. PT MEDICATED FOR PAIN THROUGHOUT SHIFT. WILL CONTINUE TO MONITOR PATIENT FOR ANY CHANGES UNTIL SBAR REPORT IS GIVEN TO DAY SHIFT RN.
[2021-05-06] MEDS: BUDESONIDE 0.5 MG/2 ML AMPUL.NEB INH SCH ×2 (07:25→19:46)
--- NOTE | 2021-05-06 08:00 | NUR ---
OPENING NOTES PATIENT ALERT AWAKE X 3.4. LUNGS BILATERALLY DIMINISHED AT THE BASES. ABDOMEN SOFT AND NON DISTENDED. VITALS SIGNS STABLE. AFEBRILE. HAS IV ACCESS ON THE LEFT HAND #22. SALINE LOCK. BED LOW POSITION, ALARMED AND LOCKED. HAS BEDSIDE COMMODE. HAS DRY FLAKY BILATERAL LOWER LEGS. NO WOUND NOR ODOR NOTED. WILL CONTINUE TO MONITOR PATIENTS STATUS.
[2021-05-06 08:04] VITALS: BP_SYST 169
[2021-05-06] MEDS: EMOLLIENT COMBINATION NO.73 78 GM CREAM..G. TP SCH ×2 (09:00→21:48)
--- NOTE | 2021-05-06 09:00 | NUR ---
CM note:Called [facility] ctr. s/w nurse Nica this am . She stated still no W/C and Oxygen concentrator delivered to pt 's room. >> f/u with [facility] rep. #[phone] to get the delivery ETA. Addendum: 05/06/21 at 1223 by Carina Guzman RN >> I did several calls to [facility] but unable to LVM , his voice mail was full. >> Called [facility] [phone], s/w David and received the ETA window between 2 -6 pm. I requested Nica at [facility] to call once received the DME. >> Called [facility] # [phone], LVM to intake dept for call back. Addendum: 05/06/21 at 1807 by Carina Guzman RN late entry: 1615: Luis Carlos Hernández at [facility], the pt is accepted . Nursing staff will resume care at [facility]. >>Informed SOO Salgado, to confirmed the dme delivery with [facility] prior to discharge the pt. [facility] also needs to deliver the O2 tank at bedside for the pt to use during transport back to the [facility]. Please activate the will call with [facility] upon dc the pt. (see previous cm note).
[2021-05-06] MEDS: ENOXAPARIN SODIUM 40 MG/0.4 ML SYRINGE SUBCUT SCH (09:07)
[2021-05-06] MEDS: POLYETHYLENE GLYCOL 3350, 17 GM/ POWD.PACK PO SCH (09:08)
[2021-05-06] MEDS: metFORMIN HCL 500 MG TABLET PO SCH ×2 (09:11→17:32)
[2021-05-06] MEDS: DOCUSATE SODIUM 100 MG CAPSULE PO SCH ×2 (09:12→21:48)
[2021-05-06] MEDS: TAMSULOSIN HCL 0.4 MG CAP PO SCH (09:12)
[2021-05-06] MEDS: POTASSIUM CHLORIDE 10 MEQ TAB.PRT.SR PO SCH (09:13)
[2021-05-06] MEDS: LOSARTAN POTASSIUM 50 MG TABLET (COZAAR) PO SCH (09:14)
[2021-05-06] MEDS: METOCLOPRAMIDE HCL 10 MG TABLET PO SCH ×2 (09:14→21:47)
[2021-05-06] MEDS: PANTOPRAZOLE SODIUM 40 MG TAB PO SCH (09:14)
[2021-05-06] MEDS: NAPROXEN 250 MG TABLET PO SCH ×2 (09:15→21:47)
[2021-05-06] MEDS: PIOGLITAZONE HCL 15 MG TABLET PO SCH (09:16)
[2021-05-06] MEDS: GABAPENTIN 300 MG CAPSULE PO SCH ×3 (09:16→21:47)
[2021-05-06] MEDS ORDERED: GOLYTELY / COLYTE SOLUTION 4 LITERS PO ONE (11:15)
[2021-05-06 12:08] VITALS: BP_SYST 137
--- NOTE | 2021-05-06 13:58 | NUR ---
Patient refused treatment. Reportedly feeling too tired to participate at this time.
--- NOTE | 2021-05-06 14:52 | NUR ---
PCP APPOINTMENT CALLED [facility] AND [facility]. APPOINTMENT FOR TELEPHONE FOLLOW UP MADE ON MAY 12 AT 1445 PM WITH FATOUMATA MEANS RN WILL NOTIFY DAUGHTER JAVIER OF APPOINTMENT
[2021-05-06 15:44] VITALS: BP_SYST 147
--- NOTE | 2021-05-06 16:00 | NUR ---
JIMBO PLANT MAINTENANCE MANAGER INFORMED SUMMER YAN TO CALL THE [facility] AFTER 5PM. FOR CONFIRMATION OF OXYGEN AND WHEELCHAIR.
--- NOTE | 2021-05-06 16:05 | NUR ---
SPOKE TO JAVIER THE DAUGHTER AND INFORMED REGARDING THE FOLLOW UP WITH DR MARTINES ON 05/12/21 AT 1445 PM APPOINTMENT. AND FOLLOW UP A DAY BEFORE THE APPOINTMENT SCHEDULE.
--- NOTE | 2021-05-06 16:12 | NUR ---
PATIENT REFUSED TO DRINK CONTINOUSLY THE GOLYTELY ABOUT 4 CUPS DRINKS, AFTER THAT SAID NO MORE DRINKING.
--- NOTE | 2021-05-06 16:13 | NUR ---
REFUSED TO TAKE PHOTOS ON HIS LEGS. SAID I AM OKAY.
--- NOTE | 2021-05-06 16:41 | NUR ---
MANNY HINKLE SPOKE TO ROBSON REGARDING THE PORTABLE OXYGEN TANK DELIVER TO [facility] AT 2000PM AND OXYGEN CONCENTRATE AND BACK UP TANK FOR CONCENTRATOR AND WHEELCHAIR WILL BE DELIVERED TO [facility] AT 2000PM ALSO. PLEASE FOLLOW UP. BEFORE DISCHARGING THE PATIENT.
--- NOTE | 2021-05-06 16:49 | NUR ---
CALLED [facility] AND SPOKE TO OMI BERRY. AND WAS TRANSFERRED TO [facility] AND RECEIVED SBAR REPORT AND PATIENT WILL GO TO ROOM 56-B. IF ALL THE EQUIPMENTS SAID DID ARRIVED AND INFORMED THE OXYGEN TANK AND CONCENTRATE AND BACK UP TANK AND WHEELCHAIR WILL ARRIVED AT 2000PM. FROM [facility].
[2021-05-06 20:00] VITALS: BP_SYST 130
--- NOTE | 2021-05-06 20:00 | NUR ---
CALLED [facility] REGARDING TRANSFER OF CARE CALLED [facility] REGARDING TRANSFER OF CARE - FARRAH JUAREZ RESPONDS. BEFORE PATIENT MAY BE TRANSFERRED, [facility] MUST DELIVER WHEELCHAIR AND OXYGEN CONCENTRATOR. RN AT THIS TIME STATES IT IS NOT THERE YET AND STATES WILL BE AVAILABLE UNTIL 2030. WILL CALL BACK AGAIN AT 2030 TO CONFIRM IF SUPPLIES HAVE BEEN DELIVERED.
--- NOTE | 2021-05-06 20:21 | NUR ---
CALLED [facility] [employer] CALLED [facility] REGARDING DELIVERY OF PORTABLE O2 TANK FOR PATIENT TRANSFER TO [facility]. COMPANY STATES THAT THEY ARE UNSURE IF TRANSPORT TRUCKS ARE OUT RIGHT NOW - WILL SEND AN "URGENT DELIVERY NOTICE" TO HAVE TRUCKS DROP OFF SUPPLIES TO BOTH [facility] (Portable O2 tank) AND WHEELCHAIR AND OXYGEN CONCENTRATOR TO [facility]. STATES ETA WILL BE 2 HOURS.
--- NOTE | 2021-05-06 20:30 | NUR ---
[facility] CALLED REGARDING TRANSFER STATUS FARRAH JUAREZ RESPONDS. STATES SHE WILL BE ABLE TO ADMIT NO LATER THAN 2100. ALSO STATES [facility] HAS NOT DELIVERED SUPPLIES. WILL CALL AGAIN AT 2100 TO TRY TO CONFIRM [facility] DELIVERY.
--- NOTE | 2021-05-06 21:00 | NUR ---
[facility] CALLED CALLED [facility]. DIESEL TRACTOR ENGINE MECHANIC STATES [facility] HAS NOT DELIVERED MEDICAL SUPPLIES AND NO RN AVAILABLE.
[2021-05-06] MEDS: CYCLOBENZAPRINE HCL 10 MG TABLET (FLEXERIL) PO SCH (21:47)
--- NOTE | 2021-05-06 22:30 | NUR ---
[facility] CALLED [facility] BASED ASSISTANT [facility] CALLED - STATES THAT THEY WILL BE ABLE TO DROP OFF WHEELCHAIR AND OXYGEN CONCENTRATOR TO [facility] STARTING 0900 TOMORROW MORNING AT THIS TIME, BUT ESTIMATED TIME AT NOON. ALSO STATES THEY WILL BE ABLE TO DROP OFF PORTABLE OXYGEN TANK [facility] AT THIS TIME.
[2021-05-07] VITALS (7 sets, daily range): BP systolic 129–148
[2021-05-07] MEDS: MINERAL OIL 30 ML UDC PO SCH ×5 (00:37→23:59)
[2021-05-07] MEDS: OXYCODONE/ACETAMINOPHEN 5-325 TABLET PO PRN ×4 (00:38→18:11)
[2021-05-07] MEDS: IPRATROPIUM/ALBUTEROL SULFATE 3 ML AMPUL.NEB (DUONEB) INH SCH ×4 (01:00→20:13)
[2021-05-07] MEDS: HYDROcodone/ACETAMIN 5-325 MG TAB (NORCO/ VICODIN) PO PRN ×4 (02:54→20:33)
[2021-05-07] MEDS: GABAPENTIN 100 MG CAPSULE PO PRN ×3 (02:55→23:59)
--- NOTE | 2021-05-07 03:02 | NUR ---
EMAR MISTAKE/ ERROR REGARDING PEROCET 5-325 ACCIDENTALLY UNDID ADMINISTRATION - MEANT TO UNDO VICODIN 5MG ADMINISTRATION. MEDICATION WAS GIVEN AT 0038 - NO S/S PAIN OR DISTRESS, PT VERBALLY DENIES PAIN AT 0108.
[2021-05-07] MEDS: NORMAL SALINE 5 ML DISP.SYRIN IVF SCH ×3 (06:45→20:53)
[2021-05-07 06:46] LABS: BASOPHILS % (AUTO) 0.2 % (0.0-2.0); EOSINOPHILS # (AUTO) 0.1 K/uL (0.0-0.4); EOSINOPHILS % (AUTO) 2.6 % (0.0-4.0); HEMATOCRIT 37.1 % (36-54); HEMOGLOBIN 11.6 g/dL (14.0-18.0); LYMPHOCYTES # (AUTO) 1.4 K/uL (1.0-5.5); LYMPHOCYTES % (AUTO) 32.2 % (20.5-51.5); MEAN CORPUSCULAR HEMOGLOBIN 25 pg (27-31); MEAN CORPUSCULAR HGB CONC 31 % (32-36); MEAN CORPUSCULAR VOLUME 80 fL (79.0-98.0); MONOCYTES # (AUTO) 0.4 K/uL (0.0-1.0); MONOCYTES % (AUTO) 8.1 % (1.7-9.3); NEUTROPHILS # (AUTO) 2.5 K/uL (1.8-7.7); NEUTROPHILS % (AUTO) 56.9 % (40.0-70.0); PLATELET COUNT (AUTO) 224 K/uL (130-430); RED BLOOD CELL COUNT(AUTO) 4.63 MIL/uL (4.2-6.2); RED CELL DISTRIBUTION WIDTH 17.3 % (9.0-15.0); WHITE BLOOD COUNT (AUTO) 4.4 K/uL (4.8-10.8)
[2021-05-07 06:52] LABS: CREATININE 1.58 mg/dL (0.55-1.30)
[2021-05-07] MEDS: BUDESONIDE 0.5 MG/2 ML AMPUL.NEB INH SCH ×2 (07:20→20:13)
--- NOTE | 2021-05-07 07:40 | NUR ---
OPENING NOTES PATIENT AAOX 4. RESPIRATION EVEN AND UNLABORED. VITALS SIGNS STABLE. AFEBRILE. STILL WITH SALINE LOCKED ON THE LEFT HAND #22. SALINE LOCK. PATIENT VERY NEEDY. BILATERAL LOWER LEGS DRY AND FLAKY AND DISCOLORED. BED LOW POSITION, ALARMED AND LOCKED. CONTINUE TO MONITOR PATIENTS STATUS.
--- NOTE | 2021-05-07 08:20 | NUR ---
Attending Md Dr Samira Carrera was paged directly, re: critical K level.
[2021-05-07] MEDS: GABAPENTIN 300 MG CAPSULE PO SCH ×3 (09:02→20:33)
[2021-05-07] MEDS: NAPROXEN 250 MG TABLET PO SCH ×2 (09:02→20:32)
--- NOTE | 2021-05-07 09:10 | NUR ---
CM note: checked pt 's room, the pt already had one tank of portable oxygen at bedside. Per CN Ruddy , it was delivered last night around 10 pm. She reported that the concentrator and WC were not delivered to [facility]. >> Notified Samantha/Alice of [facility] : unable to discharge the pt. due to the above reason and pt 's K is 6 today.
[2021-05-07] MEDS: ENOXAPARIN SODIUM 40 MG/0.4 ML SYRINGE SUBCUT SCH (10:21)
[2021-05-07] MEDS: POLYETHYLENE GLYCOL 3350, 17 GM/ POWD.PACK PO SCH (10:21)
[2021-05-07] MEDS: TAMSULOSIN HCL 0.4 MG CAP PO SCH (10:22)
[2021-05-07] MEDS: metFORMIN HCL 500 MG TABLET PO SCH ×2 (10:22→18:09)
[2021-05-07] MEDS: PIOGLITAZONE HCL 15 MG TABLET PO SCH (10:22)
[2021-05-07] MEDS: LOSARTAN POTASSIUM 50 MG TABLET (COZAAR) PO SCH (10:23)
[2021-05-07] MEDS: PANTOPRAZOLE SODIUM 40 MG TAB PO SCH (10:23)
[2021-05-07] MEDS: METOCLOPRAMIDE HCL 10 MG TABLET PO SCH ×2 (10:23→20:32)
[2021-05-07] MEDS: EMOLLIENT COMBINATION NO.73 78 GM CREAM..G. TP SCH ×2 (10:25→20:32)
[2021-05-07] MEDS: DOCUSATE SODIUM 100 MG CAPSULE PO SCH ×2 (10:28→20:32)
[2021-05-07] MEDS ORDERED: SODIUM POLYSTYRENE SULFONATE 15 GM/60 ML UDBTL PO ONE (11:15)
[2021-05-07] MEDS ORDERED: SODIUM POLYSTYRENE SULFONATE 15 GM/60 ML UDBTL ONE (12:46)
--- NOTE | 2021-05-07 14:00 | NUR ---
CM note: s/w PICTURE FRAMES INSPECTOR at [facility], confirmed received the concentrator and WC and set up in pt's room. FARRAH Salgado made aware and will call md for dc clearance, since K = 6 this am. Upon discharge please call [facility] with the auth no. per previous cm documentation. Addendum: 05/07/21 at 1705 by Carina Guzman RN Disposition 03
--- NOTE | 2021-05-07 15:40 | NUR ---
DR OSMANI AVALOS CALLED FOR FINAL OK TO DISCHARGE TODAY
--- NOTE | 2021-05-07 16:00 | NUR ---
DR KEEN CALLED FOR CLEARANCE TO DISCHARGE X 2. NO CALL BACK.
--- NOTE | 2021-05-07 16:33 | NUR ---
Nutrition F/U RD reviewed pt's current EMR record including diet Hx, physician notes, nursing notes, pertinent labs/meds/procedures, care trends, and care activity. Admission Dx: respiratory failure, pulmonary edema PMH: Coronary artery disease, COPD, diabetes, hypertension, renal insufficiency, chronic back pain, chronic neck pain, GERD per EMR review. Current Diet Order/Nutrition Support: Cardiac, CCHO x6 days Subjective Info: RD met w/ pt at bedside who reported that he has been eating wonderfully, but has been having difficulty chewing foods. RD offered texture-modified diet, and pt accepted chopped foods. He also reported that he has been feeling constipated -- RD offered extra high fiber foods (vegetables) and prune juice w/ dinner, and pt accepted. RD notified [facility] staff and noted in Comput[employer]. Pt reported last BM was yesterday. Pt had no other nutrition-related concerns. Per EMR review, PO intake average of 74% x12 meals; abd is soft and non-distended w/ active bowel sounds; last BM x1 05/07. Pertinent Medications: colace, miralax, actos, protonix, mineral oil, glucophage Pertinent Labs: K 6 H, BUN 25 H, CRE 1.58 H, CRP 2.4 H Ht: 6'2"/74" Wt: 267#/121 kg (05/02) -- stable Body Mass Index: 34.28 kg/m2 %IBW: 140 [place]/Adjusted Body Weight: IBW: 190#, adjusted BW: 209# Recent Weight Change: Yes - 106.594 kg (234 lbs) on 02/06/21 previous ER visit Skin Integrity Comment: Joe: 19; L lower R leg w/ dry flakey skin and BLE w/ 1+ non-pitting edema per EMR review Current % PO 74% average x12 meals Problem/Etiology/Signs/Symptoms 1) Obesity related to energy imbalance, sedentary as evidenced by BMI: 34.3 kg/m2, limited physical activity due to medical conditions. *ongoing 2) Altered GI function related to fecal impaction as evidenced by CT scan. *ongoing Expected Outcomes/Goals have pt meet at least 75% of estimated nutrient needs via PO diet (ongoing) Dietitian Recommendations * Recommend cardiac, CCHO, chopped diet Follow Up Moderate Risk: F/U in 3-5 days
--- NOTE | 2021-05-07 16:41 | NUR ---
Dietitian Recommendations * Recommend cardiac, CCHO, chopped diet LP, RD Please refer to Nutrition F/U for details.
--- NOTE | 2021-05-07 17:50 | NUR ---
SBAR REPORT GIVEN TO DANIEL CENTENO FROM [facility].
[2021-05-07] MEDS: CYCLOBENZAPRINE HCL 10 MG TABLET (FLEXERIL) PO SCH (20:33)
[2021-05-07] MEDS: LORazepam 2 MG/ML VIAL IVP PRN (20:44)
--- NOTE | 2021-05-07 22:00 | NUR ---
ROUNDING NOTES Patient resting in bed - no s/s pain or distress noted. Respirations even and unlabored - head of bed elevated 2L NC. IV site patent - no s/s redness, infection, or infiltration. Bed locked and in lowest position. Call light within reach - bed alarm on.
[2021-05-08 00:45] VITALS: BP_SYST 142
[2021-05-08] MEDS: IPRATROPIUM/ALBUTEROL SULFATE 3 ML AMPUL.NEB (DUONEB) INH SCH ×4 (01:00→20:32)
[2021-05-08] MEDS: OXYCODONE/ACETAMINOPHEN 5-325 TABLET PO PRN ×3 (03:40→23:38)
[2021-05-08] MEDS: GABAPENTIN 100 MG CAPSULE PO PRN ×2 (05:36→11:35)
[2021-05-08] MEDS: MINERAL OIL 30 ML UDC PO SCH ×4 (06:09→23:34)
[2021-05-08] MEDS: NORMAL SALINE 5 ML DISP.SYRIN IVF SCH ×3 (06:10→21:40)
[2021-05-08 07:26] LABS: ALBUMIN 3.7 g/dL (3.4-4.8); BASOPHILS % (AUTO) 0.4 % (0.0-2.0); CALCIUM 9.7 mg/dL (8.4-11.0); CREATININE 1.61 mg/dL (0.55-1.30); EOSINOPHILS # (AUTO) 0.1 K/uL (0.0-0.4); EOSINOPHILS % (AUTO) 2.2 % (0.0-4.0); HEMATOCRIT 36.4 % (36-54); HEMOGLOBIN 11.3 g/dL (14.0-18.0); LYMPHOCYTES # (AUTO) 1.3 K/uL (1.0-5.5); LYMPHOCYTES % (AUTO) 21.5 % (20.5-51.5); MEAN CORPUSCULAR HEMOGLOBIN 25 pg (27-31); MEAN CORPUSCULAR HGB CONC 31 % (32-36); MEAN CORPUSCULAR VOLUME 80 fL (79.0-98.0); MONOCYTES # (AUTO) 0.5 K/uL (0.0-1.0); NEUTROPHILS # (AUTO) 4.1 K/uL (1.8-7.7); NEUTROPHILS % (AUTO) 67.9 % (40.0-70.0); PLATELET COUNT (AUTO) 231 K/uL (130-430); RED BLOOD CELL COUNT(AUTO) 4.55 MIL/uL (4.2-6.2); RED CELL DISTRIBUTION WIDTH 17.6 % (9.0-15.0); TOTAL BILIRUBIN 0.2 mg/dL (0.0-1.0)
[2021-05-08 07:33] LABS: POTASSIUM 6.1 mmol/L (3.5-5.1)
[2021-05-08] MEDS ORDERED: SODIUM POLYSTYRENE SULFONATE 15 GM/60 ML UDBTL PO ONE ×2 (07:45→12:45)
[2021-05-08] MEDS: BUDESONIDE 0.5 MG/2 ML AMPUL.NEB INH SCH ×2 (07:50→20:32)
[2021-05-08 08:00] VITALS: BP_SYST 130
[2021-05-08] MEDS: POLYETHYLENE GLYCOL 3350, 17 GM/ POWD.PACK PO SCH (09:41)
[2021-05-08] MEDS: PANTOPRAZOLE SODIUM 40 MG TAB PO SCH (09:41)
[2021-05-08] MEDS: PIOGLITAZONE HCL 15 MG TABLET PO SCH (09:42)
[2021-05-08] MEDS: GABAPENTIN 300 MG CAPSULE PO SCH ×3 (09:42→21:40)
[2021-05-08] MEDS: LOSARTAN POTASSIUM 50 MG TABLET (COZAAR) PO SCH (09:42)
[2021-05-08] MEDS: TAMSULOSIN HCL 0.4 MG CAP PO SCH (09:42)
[2021-05-08] MEDS: DOCUSATE SODIUM 100 MG CAPSULE PO SCH ×2 (09:43→21:39)
[2021-05-08] MEDS: metFORMIN HCL 500 MG TABLET PO SCH ×2 (09:43→19:19)
[2021-05-08] MEDS: NAPROXEN 250 MG TABLET PO SCH (09:48)
[2021-05-08] MEDS: METOCLOPRAMIDE HCL 10 MG TABLET PO SCH ×2 (09:49→21:39)
[2021-05-08] MEDS: EMOLLIENT COMBINATION NO.73 78 GM CREAM..G. TP SCH ×2 (09:50→21:38)
[2021-05-08] MEDS: ENOXAPARIN SODIUM 40 MG/0.4 ML SYRINGE SUBCUT SCH (09:52)
[2021-05-08] MEDS ORDERED: FLUDROCORTISONE ACETATE 0.1 MG TABLET( FLORINEF) PO ONE (10:00)
[2021-05-08] MEDS ORDERED: FUROSEMIDE 40 MG TABLET PO ONE (10:00)
[2021-05-08 13:19] VITALS: BP_SYST 129
--- NOTE | 2021-05-08 13:28 | NUR ---
CONSULTATION REASON FOR CONSULT:CHUCKY CONSULTING PHYSICIAN: RENE ORDERED BY: Samira KEEN SPOKE WITH CHYNA [phone]
[2021-05-08] MEDS: D5/0.45 NS 1,000 ML IV SCH ×2 (13:43→23:34)
[2021-05-08] MEDS: HYDROcodone/ACETAMIN 5-325 MG TAB (NORCO/ VICODIN) PO PRN (15:28)
[2021-05-08] MEDS: LORazepam 2 MG/ML VIAL IVP PRN (15:34)
[2021-05-08 16:12] VITALS: BP_SYST 131
--- NOTE | 2021-05-08 19:25 | NUR ---
OPENING NOTES PATIENT RESTING, NO RESPIRATORY DISTRESS NOTED. CALL LIGHT WITHIN REACH, PATIENT DEMONSTRATES PROPER USAGE OF CALL LIGHT, BED ALARM ON, BED AT LOWEST POSITION, BED LOCKED. DISCUSSED PLAN OF CARE WITH PATIENT. FALL, RESPIRATORY, SAFETY, AND ASPIRATION PRECAUTIONS IN PLACE. WILL CONTINUE TO MONITOR.
[2021-05-08 20:00] VITALS: BP_SYST 138
[2021-05-08] MEDS: CYCLOBENZAPRINE HCL 10 MG TABLET (FLEXERIL) PO SCH (21:39)
--- NOTE | 2021-05-09 00:21 | NUR ---
PATIENT RESTING, EYES CLOSED. NO DISTRESS NOTED. WILL CONTINUE TO MONITOR.
[2021-05-09 00:26] VITALS: BP_SYST 125
[2021-05-09] MEDS: IPRATROPIUM/ALBUTEROL SULFATE 3 ML AMPUL.NEB (DUONEB) INH SCH ×4 (01:55→19:46)
--- NOTE | 2021-05-09 04:15 | NUR ---
SPOKE TO DR. LÓPEZ, RECEIVED ORDERS TO REPLACE CMP WITH THE BMP. WILL FOLLOW THROUGH.
[2021-05-09] MEDS: MINERAL OIL 30 ML UDC PO SCH ×3 (06:07→17:59)
[2021-05-09] MEDS: OXYCODONE/ACETAMINOPHEN 5-325 TABLET PO PRN ×3 (06:08→18:01)
[2021-05-09] MEDS: NORMAL SALINE 5 ML DISP.SYRIN IVF SCH ×3 (06:09→22:04)
--- NOTE | 2021-05-09 06:38 | NUR ---
CLOSING NOTES PATIENT RESTING, NO RESPIRATORY DISTRESS NOTED. CALL LIGHT WITHIN REACH, PATIENT DEMONSTRATES PROPER USAGE OF CALL LIGHT, BED ALARM ON, BED AT LOWEST POSITION, BED LOCKED. DISCUSSED PLAN OF CARE WITH PATIENT. FALL, RESPIRATORY, SAFETY, AND ASPIRATION PRECAUTIONS IN PLACE THROUGHOUT SHIFT. ALL NEEDS MET THROUGHOUT SHIFT. WILL ENDORSE CARE TO ONCOMING SHIFT.
[2021-05-09 06:45] LABS: BASOPHILS % (AUTO) 0.3 % (0.0-2.0); EOSINOPHILS # (AUTO) 0.1 K/uL (0.0-0.4); EOSINOPHILS % (AUTO) 2.3 % (0.0-4.0); HEMATOCRIT 35.2 % (36-54); HEMOGLOBIN 10.8 g/dL (14.0-18.0); LYMPHOCYTES # (AUTO) 1.1 K/uL (1.0-5.5); LYMPHOCYTES % (AUTO) 29.7 % (20.5-51.5); MEAN CORPUSCULAR HEMOGLOBIN 25 pg (27-31); MEAN CORPUSCULAR HGB CONC 31 % (32-36); MEAN CORPUSCULAR VOLUME 80 fL (79.0-98.0); MONOCYTES # (AUTO) 0.4 K/uL (0.0-1.0); MONOCYTES % (AUTO) 9.1 % (1.7-9.3); NEUTROPHILS # (AUTO) 2.3 K/uL (1.8-7.7); NEUTROPHILS % (AUTO) 58.6 % (40.0-70.0); PLATELET COUNT (AUTO) 196 K/uL (130-430); RED CELL DISTRIBUTION WIDTH 17.1 % (9.0-15.0); WHITE BLOOD COUNT (AUTO) 3.8 K/uL (4.8-10.8)
[2021-05-09] MEDS: BUDESONIDE 0.5 MG/2 ML AMPUL.NEB INH SCH ×2 (07:16→19:45)
[2021-05-09 07:50] VITALS: BP_SYST 142
--- NOTE | 2021-05-09 07:55 | NUR ---
OPENING NOTES: PATIENT RESTING IN BED. BREATHING EVEN AND NON LABORED TO O2/NC. FALL AND SAFETY PRECAUTION REINFORCED. CALL LIGHT WITHIN REACH.
[2021-05-09 08:22] LABS: ALBUMIN 3.4 g/dL (3.4-4.8); CALCIUM 9.4 mg/dL (8.4-11.0); CREATININE 1.33 mg/dL (0.55-1.30); PHOSPHORUS 3.6 mg/dL (2.7-4.5); POTASSIUM 5.1 mmol/L (3.5-5.1); TOTAL BILIRUBIN 0.2 mg/dL (0.0-1.0)
[2021-05-09] MEDS: PANTOPRAZOLE SODIUM 40 MG TAB PO SCH (09:18)
[2021-05-09] MEDS: TAMSULOSIN HCL 0.4 MG CAP PO SCH (09:18)
[2021-05-09] MEDS: DOCUSATE SODIUM 100 MG CAPSULE PO SCH ×2 (09:18→22:02)
[2021-05-09] MEDS: GABAPENTIN 300 MG CAPSULE PO SCH ×3 (09:18→22:02)
[2021-05-09] MEDS: LOSARTAN POTASSIUM 50 MG TABLET (COZAAR) PO SCH (09:18)
[2021-05-09] MEDS: metFORMIN HCL 500 MG TABLET PO SCH ×2 (09:19→17:59)
[2021-05-09] MEDS: FUROSEMIDE 20 MG TABLET PO SCH (09:19)
[2021-05-09] MEDS: PIOGLITAZONE HCL 15 MG TABLET PO SCH (09:20)
[2021-05-09] MEDS: METOCLOPRAMIDE HCL 10 MG TABLET PO SCH ×2 (09:20→22:03)
[2021-05-09] MEDS: ENOXAPARIN SODIUM 40 MG/0.4 ML SYRINGE SUBCUT SCH (09:21)
[2021-05-09] MEDS: D5/0.45 NS 1,000 ML IV SCH ×2 (09:30→18:01)
[2021-05-09] MEDS: FLUDROCORTISONE ACETATE 0.1 MG TABLET( FLORINEF) PO SCH (09:30)
[2021-05-09] MEDS: POLYETHYLENE GLYCOL 3350, 17 GM/ POWD.PACK PO SCH (09:30)
[2021-05-09] MEDS: EMOLLIENT COMBINATION NO.73 78 GM CREAM..G. TP SCH ×2 (09:34→22:03)
[2021-05-09] MEDS: HYDROcodone/ACETAMIN 5-325 MG TAB (NORCO/ VICODIN) PO PRN ×2 (09:54→22:13)
[2021-05-09] MEDS: LORazepam 2 MG/ML VIAL IVP PRN (09:59)
[2021-05-09 11:25] VITALS: BP_SYST 144
[2021-05-09 12:39] LABS: THYROID STIMULATING HORMONE 1.19 uIu/mL (0.36-3.74)
[2021-05-09 15:27] VITALS: BP_SYST 140
[2021-05-09] MEDS ORDERED: FUROSEMIDE 20 MG/2 ML VIAL IVP ONE (18:30)
--- NOTE | 2021-05-09 18:50 | NUR ---
CLOSING NOTES: PATIENT EATING BREAKFAST. NO SIGNS OF ACUTE DISTRESS NOTED. FALL AND SAFETY PRECAUTION REINFORCED. CALL LIGHT WITHIN REACH.
[2021-05-09 19:00] VITALS: BP_SYST 145
--- NOTE | 2021-05-09 19:15 | NUR ---
change of shift.pt.presents affect;aggressive.loc;confused.lt.hand iv lock.o2 via nasal cannulae.pt.bedrest.urinal w/in access of the pt.call light/telephone w/in acces of the pt.
[2021-05-09 20:00] VITALS: BP_SYST 146
--- NOTE | 2021-05-09 20:00 | NUR ---
pt.assessed.v/s assessed values wnl.no c/o pain,nausea.iv access intact.i have attempted to administer lasix;20mg ivp.pt.refused to attempt again. urinal attended to placed w/in access of the pt.pt.had requested snacks/juice.provided to the pt.pt.repositioned.call light/telephone placed w/in access of the pt. Addendum: 05/10/21 at 0327 by Siva Lang RN ;oracle programmer present to assess the pt.the pt.has refused to converse w .i am present@the behest of . has conversed w pt's dtr@this hour via telephone.
--- NOTE | 2021-05-09 21:00 | NUR ---
2100pmedications administered.pt.capable to ingest the po medications w/out difficulty.no c/o pain,nausea.call light/telephone placed w/in access of the pt.
--- NOTE | 2021-05-09 22:00 | NUR ---
pt.had requested medication: pain;headache/body ache.i have administered tylenol;headache/norco;10/325mg po body ache. to assess the efficacy of the pain medication per pain mgx protocol.pt.had requested snacks/juices:provided to the pt.pt. repositioned.call light/telephone placed w/in access of the pt.
[2021-05-09] MEDS: CYCLOBENZAPRINE HCL 10 MG TABLET (FLEXERIL) PO SCH (22:02)
--- NOTE | 2021-05-10 | NUR ---
pt.assessed.v/s assessed values wnl.no c/o pain,nausea.pt.refused the lasix administration@this hour.no requests@this hour. pt.repositioned.call light/telephone placed w/in access of the pt.urinal attended to placed w/in access of the pt.
[2021-05-10] MEDS: MINERAL OIL 30 ML UDC PO SCH ×3 (00:06→14:48)
[2021-05-10] MEDS: GABAPENTIN 100 MG CAPSULE PO PRN (00:09)
[2021-05-10 00:31] VITALS: BP_SYST 143
--- NOTE | 2021-05-10 02:00 | NUR ---
pt.assessed.pt.had acquiests i have administered lasix 20mg ivp@this hour.i have attended to the urinal place w/in access of the pt.no c/o pain,nausea.pt.repositioned.call light/telephone placed w/in access of the pt.
--- NOTE | 2021-05-10 04:00 | NUR ---
pt.assessed.pt.presents quiescent affect;somnolent.urinal w/in access of the pt.per flacc pain mgx pt.absent facial grimaces/body posturing.call light/telephone w/in access of the pt.
--- NOTE | 2021-05-10 06:06 | NUR ---
pt.assessed.pt.presents quiescent affect;somnolent.per flacc pain mgx pt.absent facial grimaces/ body posturing. pt.capable reposition self.urinal placed w/in access of the pt.call light/telephone w/in access of the pt.
[2021-05-10] MEDS: HYDROcodone/ACETAMIN 5-325 MG TAB (NORCO/ VICODIN) PO PRN ×2 (06:32→14:48)
[2021-05-10] MEDS: NORMAL SALINE 5 ML DISP.SYRIN IVF SCH ×2 (06:34→14:49)
--- NOTE | 2021-05-10 06:42 | NUR ---
pt.requested medication;pain.i have admnistered norco:10mg/325mg.to assess the efficacy of the pain medication per pain mgx protocol.
--- NOTE | 2021-05-10 07:25 | NUR ---
OPENING NOTED: RECEIVED PATIENT FROM SPREADER NURSE. PATIENT IS AWAKE LAYING DOWN IN BED. TOLERATED OXYGEN ON 2L NASAL CANNULA WITH NO DISTRESS NOTED. IV LINE PATENT AND INTACT NO INFILTRATION NOTED. PATIENT STABLE AT THIS TIME. SAFETY, FALL, AND ASPIRATION PRECAUTIONS ARE IN PLACE. BED LOCKED IN LOWEST POSITION AND CALL LIGHT IN REACH. WILL CONTINUE TO MONITOR PATIENT FOR ANY CHANGES.
[2021-05-10] MEDS: IPRATROPIUM/ALBUTEROL SULFATE 3 ML AMPUL.NEB (DUONEB) INH SCH ×2 (07:27→13:37)
[2021-05-10] MEDS: BUDESONIDE 0.5 MG/2 ML AMPUL.NEB INH SCH (07:27)
[2021-05-10 07:34] LABS: BASOPHILS % (AUTO) 0.5 % (0.0-2.0); EOSINOPHILS # (AUTO) 0.1 K/uL (0.0-0.4); EOSINOPHILS % (AUTO) 2.8 % (0.0-4.0); HEMATOCRIT 33.5 % (36-54); HEMOGLOBIN 10.2 g/dL (14.0-18.0); LYMPHOCYTES # (AUTO) 1.1 K/uL (1.0-5.5); LYMPHOCYTES % (AUTO) 26.6 % (20.5-51.5); MEAN CORPUSCULAR HEMOGLOBIN 24 pg (27-31); MEAN CORPUSCULAR HGB CONC 30 % (32-36); MEAN CORPUSCULAR VOLUME 80 fL (79.0-98.0); MONOCYTES # (AUTO) 0.3 K/uL (0.0-1.0); MONOCYTES % (AUTO) 8.2 % (1.7-9.3); NEUTROPHILS # (AUTO) 2.5 K/uL (1.8-7.7); NEUTROPHILS % (AUTO) 61.9 % (40.0-70.0); PLATELET COUNT (AUTO) 200 K/uL (130-430); RED BLOOD CELL COUNT(AUTO) 4.17 MIL/uL (4.2-6.2); RED CELL DISTRIBUTION WIDTH 17.5 % (9.0-15.0); WHITE BLOOD COUNT (AUTO) 4.1 K/uL (4.8-10.8)
[2021-05-10 07:46] LABS: ALBUMIN 3.3 g/dL (3.4-4.8); CALCIUM 9.4 mg/dL (8.4-11.0); CREATININE 1.36 mg/dL (0.55-1.30); PHOSPHORUS 3.5 mg/dL (2.7-4.5); POTASSIUM 4.8 mmol/L (3.5-5.1); TOTAL BILIRUBIN 0.2 mg/dL (0.0-1.0)
[2021-05-10 08:00] VITALS: BP_SYST 141
[2021-05-10] MEDS ORDERED: MAGNESIUM SULFATE 1 GM in NS 100 ML IV ONE (08:30)
[2021-05-10] MEDS ORDERED: PROCHLORPERAZINE EDISYLATE 10 MG/2 ML VIAL IVP ONE (08:30)
[2021-05-10] MEDS: GABAPENTIN 300 MG CAPSULE PO SCH ×2 (08:53→14:48)
[2021-05-10] MEDS: POLYETHYLENE GLYCOL 3350, 17 GM/ POWD.PACK PO SCH (08:53)
[2021-05-10] MEDS: PIOGLITAZONE HCL 15 MG TABLET PO SCH (08:54)
[2021-05-10] MEDS: metFORMIN HCL 500 MG TABLET PO SCH (08:54)
[2021-05-10] MEDS: TAMSULOSIN HCL 0.4 MG CAP PO SCH (08:55)
[2021-05-10] MEDS: METOCLOPRAMIDE HCL 10 MG TABLET PO SCH (08:55)
[2021-05-10] MEDS: DOCUSATE SODIUM 100 MG CAPSULE PO SCH (08:56)
[2021-05-10] MEDS: PANTOPRAZOLE SODIUM 40 MG TAB PO SCH (08:56)
[2021-05-10] MEDS: LOSARTAN POTASSIUM 50 MG TABLET (COZAAR) PO SCH (08:56)
[2021-05-10] MEDS: FUROSEMIDE 20 MG TABLET PO SCH (08:57)
[2021-05-10] MEDS: ENOXAPARIN SODIUM 40 MG/0.4 ML SYRINGE SUBCUT SCH (08:58)
[2021-05-10] MEDS: EMOLLIENT COMBINATION NO.73 78 GM CREAM..G. TP SCH (08:58)
[2021-05-10] MEDS: FLUDROCORTISONE ACETATE 0.1 MG TABLET( FLORINEF) PO SCH (08:59)
[2021-05-10] MEDS ORDERED: MAGNESIUM SULFATE/D5W 100 ML IV ONE (09:00)
[2021-05-10] MEDS ORDERED: BISACODYL 10 MG/SUPPOSITORY RC ONE (09:15)
[2021-05-10] MEDS ORDERED: MAGNESIUM CITRATE 300 ML ORAL SOLUTION PO ONE (09:15)
[2021-05-10] MEDS: OXYCODONE/ACETAMINOPHEN 5-325 TABLET PO PRN (10:46)
[2021-05-10 11:21] VITALS: BP_SYST 151
[2021-05-10] MEDS ORDERED: LEVO750T45 PO (11:56)
--- NOTE | 2021-05-10 14:21 | NUR ---
CM note: received dc order to [facility] . All DME was arranged , see previous note. >> Reactivated [facility] with [facility] for 4 pm grain picker. FARRAH kang. Disposition : 06
--- NOTE | 2021-05-10 15:00 | NUR ---
CALLED [facility] AND SPOKE TO JOSE MARIA (FARRAH) AND GAVE REPORT. CALLED FAMILY MEMBER 3X NO ANSWER LEFT A MESSAGE FROM VOICEMAIL.
[2021-05-10 15:25] VITALS: BP_SYST 149
--- NOTE | 2021-05-10 16:50 | NUR ---
D/C Patient Patient given medication reconciliation form and D/C instructions. Exit Care provided. Patient verbalized understanding. MD discussed with patient the results and treatment provided. [facility] with 2 personel going to [facility]. Patient in stable condition, ID band removed. IV catheter removed, intact and dressing applied, no active bleeding. Patient educated on pain management. All belongings sent with patient.
--- NOTE | 2021-05-10 17:00 | NUR ---
PATIENT WAS CALLED REGARDING PATIENT'S DENTURES. JAVIER (DAUGHTER) MENTIONED SHE'LL GET IT SOON SHE CAN.
[2021-05-11] MEDS ORDERED: BISACODYL 10 MG/SUPPOSITORY RC SCH (09:00)
== END 2021-05-10 16:50 | disposition home health service (06) | DRG 193 ==
LOC: SED 02:13 → STU 05:45
PROVIDERS: ADMIT Preventive Medicine Preventive Medicine/Occupational Environmental Medicine; ATTEND Preventive Medicine Preventive Medicine/Occupational Environmental Medicine
PROC: 5A09357 Assistance with Respiratory Ventilation, Less than 24 Consecutive Hours, Continuous Positive Airway Pressure (ICD-10-PCS; principal; 2021-05-09)
DX: J18.9 Pneumonia, unspecified organism (principal); J96.20 Acute and chronic respiratory failure, unspecified whether with hypoxia or hypercapnia; I13.0 Hypertensive heart and chronic kidney disease with heart failure and stage 1 through stage 4 chronic kidney disease, or unspecified chronic kidney disease; J44.1 Chronic obstructive pulmonary disease with (acute) exacerbation; N17.9 Acute kidney failure, unspecified; J44.0 Chronic obstructive pulmonary disease with (acute) lower respiratory infection; E66.01 Morbid (severe) obesity due to excess calories; I50.9 Heart failure, unspecified; E11.22 Type 2 diabetes mellitus with diabetic chronic kidney disease; I25.10 Atherosclerotic heart disease of native coronary artery without angina pectoris; E11.40 Type 2 diabetes mellitus with diabetic neuropathy, unspecified; E11.65 Type 2 diabetes mellitus with hyperglycemia; G89.29 Other chronic pain; M54.9 Dorsalgia, unspecified; K21.9 Gastro-esophageal reflux disease without esophagitis; D72.819 Decreased white blood cell count, unspecified; K56.41 Fecal impaction; M50.30 Other cervical disc degeneration, unspecified cervical region; M48.02 Spinal stenosis, cervical region; E83.41 Hypermagnesemia; D64.9 Anemia, unspecified; N13.9 Obstructive and reflux uropathy, unspecified; M19.90 Unspecified osteoarthritis, unspecified site; N40.0 Benign prostatic hyperplasia without lower urinary tract symptoms; I89.0 Lymphedema, not elsewhere classified; G47.33 Obstructive sleep apnea (adult) (pediatric); F03.90 Unspecified dementia, unspecified severity, without behavioral disturbance, psychotic disturbance, mood disturbance, and anxiety; E87.5 Hyperkalemia; E86.0 Dehydration; Z20.822 Contact with and (suspected) exposure to COVID-19; C61 Malignant neoplasm of prostate; E78.5 Hyperlipidemia, unspecified; N18.30 Chronic kidney disease, stage 3 unspecified; Z88.5 Allergy status to narcotic agent; Z88.8 Allergy status to other drugs, medicaments and biological substances; Z79.899 Other long term (current) drug therapy; Z79.84 Long term (current) use of oral hypoglycemic drugs; Z85.46 Personal history of malignant neoplasm of prostate; Z98.1 Arthrodesis status
CPT/HCPCS: 36415; 36600; 70450-TC; 71045; 72125-TC; 74018; 76376; 80048; 80053; 82803-TC; 83036; 83735; 83880; 84100; 84439; 84443; 84484; 85025; 85651-TC; 86140; 87040-TC; 93005; 93306; 94640; 94760; 96374; 96375; 97110-GP; 97112-GP; 97116-GP; 97163-GP; 97530-GP; 99291; G0378; J0780; J1650; J1940; J2060; J2543; J3010; J3475; J7626; J8597

== ENCOUNTER 2021-07-11 15:21 | Inpatient (IN) | payer MEDICARE, MEDICAID, SELFPAY ==
[~2021-07-11] VITALS: Ht 188 cm; Wt 121.1 kg
[~2021-07-11 15:21] MED LIST changes: +CYCL10TA24 PO; -CYCL10TA9 PO; -CYM30 PO; -DAPA5TAB PO; -ESOM40CA PO; -FLUT16SP16 NS; +GABA-529 PO; -GLIP10TA21 PO; +GLIP5TAB13 PO; -HYDR-3609 PO; +LEVO750T45 PO; -LOVA40TA75 PO; +OXIC30CR2 TP; -OXYC10TA56 PO; +PRO40 PO; +ROBAC PO; +SITA100T11 PO; -SITA50TA3 PO
[2021-07-11 15:50] VITALS: BP_SYST 135
--- NOTE | 2021-07-11 15:50 | NUR ---
Placed in room 1 . Placed on media intern, blood pressure machine and pulse oximeter. To gown for exam. Side rails up.
--- NOTE | 2021-07-11 15:55 | NUR ---
ER at bedside examining patient.
--- NOTE | 2021-07-11 15:58 | NUR ---
Pt bib ambulance with complaint of throat swelling X3days and a burning sensation upon swallowing. Pt can tolerate PO intake, denies N/V. Breathing is even and unlabored. Lung sounds diminished bilaterally. Pt resting in gurney attached to monitor no distress noted at this time. Pt presenting with chronic oxygen use of 4 liters nasal canula and with lower extremity swelling.
[2021-07-11] MEDS ORDERED: FUROSEMIDE 40 MG/4 ML VIAL IVP ONE (16:00)
--- NOTE | 2021-07-11 16:08 | NUR ---
Patient transported to radiology via gurney, accompanied by andi.
--- NOTE | 2021-07-11 16:30 | NUR ---
Pt back from CT.
--- NOTE | 2021-07-11 17:00 | NUR ---
lab at bedside.
[2021-07-11 17:15] LABS: BASOPHILS % (AUTO) 0.2 % (0.0-2.0); EOSINOPHILS # (AUTO) 0.1 K/uL (0.0-0.4); HEMATOCRIT 30.9 % (36-54); HEMOGLOBIN 9.9 g/dL (14.0-18.0); LYMPHOCYTES # (AUTO) 1.5 K/uL (1.0-5.5); LYMPHOCYTES % (AUTO) 31.2 % (20.5-51.5); MEAN CORPUSCULAR HEMOGLOBIN 26 pg (27-31); MEAN CORPUSCULAR HGB CONC 32 % (32-36); MEAN CORPUSCULAR VOLUME 81 fL (79.0-98.0); MONOCYTES # (AUTO) 0.4 K/uL (0.0-1.0); MONOCYTES % (AUTO) 8.3 % (1.7-9.3); NEUTROPHILS # (AUTO) 2.8 K/uL (1.8-7.7); NEUTROPHILS % (AUTO) 58.3 % (40.0-70.0); PLATELET COUNT (AUTO) 205 K/uL (130-430); RED BLOOD CELL COUNT(AUTO) 3.84 MIL/uL (4.2-6.2); RED CELL DISTRIBUTION WIDTH 20.1 % (9.0-15.0); WHITE BLOOD COUNT (AUTO) 4.8 K/uL (4.8-10.8)
--- NOTE | 2021-07-11 17:15 | NUR ---
Covid swab collected and sent to lab.
[2021-07-11 17:23] LABS: ANION GAP 3 (5-15); CALCIUM 9.6 mg/dL (8.4-11.0); CHLORIDE 103 mmol/L (98-107); CREATININE 1.76 mg/dL (0.55-1.30); GLUCOSE 78 mg/dL (70-99); POTASSIUM 4.5 mmol/L (3.5-5.1); SODIUM SERUM 141 mmol/L (136-145); UREA NITROGEN, BLOOD 34 mg/dL (8-21)
[2021-07-11 17:33] LABS: ALANINE AMINOTRANSFERASE 11 U/L (12-78); ALBUMIN 3.8 g/dL (3.4-4.8); ASPARTATE AMINOTRANSFERASE 11 U/L (10-37); TOTAL BILIRUBIN 0.1 mg/dL (0.0-1.0)
[2021-07-11 17:37] LABS: GFR AFRICAN AMERICAN 50 mL/min (>90)
--- NOTE | 2021-07-11 18:07 | NUR ---
Admit orders recieved.
[2021-07-11] MEDS ORDERED: NAPR-1172 PO (18:12)
--- NOTE | 2021-07-11 18:15 | NUR ---
# 20 gauge angiocath placed to RFA. Use of asceptic technique. Opsite placed over site. Blood return noted. Blood for lab drawn from site. Flushed with 10 cc of normal saline. No evidence of infiltration noted. Patient tolerated well.
[2021-07-11] MEDS ORDERED: FUROSEMIDE 40 MG/4 ML VIAL ONE (18:19)
[2021-07-11] MEDS ORDERED: PIOG30TA70 PO (18:22)
[2021-07-11] MEDS ORDERED: FURO-149 PO (18:22)
[2021-07-11] MEDS ORDERED: PANT40TA45 PO (18:22)
[2021-07-11] MEDS ORDERED: TAMS-11 PO (18:22)
[2021-07-11] MEDS ORDERED: POTA10TA58 PO (18:22)
[2021-07-11] MEDS ORDERED: LOSA50TA28 PO (18:22)
[2021-07-11] MEDS ORDERED: LINA145C PO (18:22)
[2021-07-11] MEDS ORDERED: ROBAC PO (18:37)
[2021-07-11] MEDS ORDERED: FLUT50BL NAS (18:37)
[2021-07-11] MEDS ORDERED: SITA50TA3 PO (18:37)
[2021-07-11] MEDS ORDERED: CYCL10TA24 PO (18:37)
[2021-07-11] MEDS ORDERED: HYDR-3919 PO (18:37)
[2021-07-11] MEDS ORDERED: OXYC10TA48 PO (18:37)
[2021-07-11] MEDS ORDERED: METF1000 PO (18:37)
[2021-07-11] MEDS ORDERED: ZOFODT4 SL (18:37)
[2021-07-11] MEDS ORDERED: LACT10SO6 PO (18:37)
[2021-07-11] MEDS ORDERED: OXIC30CR3 TP (18:37)
[2021-07-11] MEDS ORDERED: METO5TAB86 PO (18:37)
[2021-07-11] MEDS ORDERED: GLIP5TAB26 PO (18:37)
[2021-07-11] MEDS ORDERED: DOCU100T22 PO (18:37)
[2021-07-11] MEDS ORDERED: ALBU90AE2 INH (18:39)
[2021-07-11] MEDS ORDERED: GABA-529 PO (18:39)
--- NOTE | 2021-07-11 18:39 | NUR ---
MRSA swab collected and sent to lab.
--- NOTE | 2021-07-11 18:42 | NUR ---
Medication reconciliation completed with information provided by FACILITY. Any prior medication reconciliation on file was reviewed and corrected.
--- NOTE | 2021-07-11 19:05 | NUR ---
Care endorsed to Jamel YAN.
--- NOTE | 2021-07-11 19:06 | NUR ---
Received endorsement from day shift FARRAH Garcia, CECE4, breathing spontaneously with O2 at 4L/min via nasal cannula, [id number]%, not in distress noted . With IV cannula g20 at right forearm on saline lock, patent noted. 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 Yanez, awaiting bed to med/surg. Vital signs stable
--- NOTE | 2021-07-11 19:25 | NUR ---
Apparently beddings soaked with urine, after care done and beddings changed, kept comfortable. O2 titrate to 2L/min via nasal cannula, [id number]-63% noted
--- NOTE | 2021-07-11 19:35 | NUR ---
Patient's code status is FULL CODE, paperwork completed and placed in chart.
[2021-07-11] MEDS ORDERED: KETOROLAC TROMETHAMINE 30 MG VIAL IVP ONE (20:15)
--- NOTE | 2021-07-11 20:23 | NUR ---
Complained of throat pain 07/17, Toradol 30mg IV once as ordered, health teaching provided and verbalized understanding
[2021-07-11] MEDS ORDERED: guaiFENesin 200 MG/CODEINE 20 MG/ 10 ML UDC PO PRN (21:30)
[2021-07-11] MEDS ORDERED: NALOXONE HCL 0.4 MG/ML AMP (NARCAN) IVP PRN (21:30)
[2021-07-11] MEDS ORDERED: EXCEDRIN EXTRA STRENGTH PO PRN (21:30)
[2021-07-11] MEDS ORDERED: ONDANSETRON 4 MG ODT TAB PO SCH (21:30)
[2021-07-11] MEDS: IPRATROPIUM/ALBUTEROL SULFATE 3 ML AMPUL.NEB (DUONEB) INH SCH (21:36)
[2021-07-11] MEDS ORDERED: OXYCODONE/ACETAMINOPHEN *10*mg/325 mg TABLET ONE (21:36)
[2021-07-11] MEDS: OXYCODONE/ACETAMINOPHEN *10*mg/325 mg TABLET PO PRN (21:36)
[2021-07-11 21:40] VITALS: BP_SYST 148
[2021-07-11] MEDS ORDERED: DEXTROSE 50% JECT 50 ML DISP.SYRIN IVP PRN (21:45)
[2021-07-11] MEDS ORDERED: INSULIN REGULAR, HUMAN 100 UNITS/ML, 10 ML VIAL (humuLIN R) SUBCUT PRN (21:45)
[2021-07-11] MEDS: FUROSEMIDE 20 MG TABLET PO SCH (21:47)
[2021-07-11] MEDS: CYCLOBENZAPRINE HCL 10 MG TABLET (FLEXERIL) PO SCH (21:48)
[2021-07-11] MEDS: GABAPENTIN 100 MG CAPSULE PO SCH (21:48)
[2021-07-11] MEDS ORDERED: DOCUSATE SODIUM 100 MG CAPSULE PO PRN (22:00)
--- NOTE | 2021-07-11 22:07 | NUR ---
Seen and examined by Dr. Yanez, Attending physician
--- NOTE | 2021-07-11 23:14 | NUR ---
Med/surg contacted and spoke with the charge nurse to follow up the bed, he said to call back
[2021-07-11] MEDS ORDERED: ENOXAPARIN SODIUM 30 MG/0.3 ML SYRINGE SUBCUT ONE (23:45)
--- NOTE | 2021-07-11 23:51 | NUR ---
Transfer to med/surg 112B via BLS protocol VIA POLORDERREK in stable condition, IV present no signs or symptoms of infiltration. Report called to FARRAH Rowley.
--- NOTE | 2021-07-12 00:15 | NUR ---
ADMIT NOTE Received pt from ER to the unit with a diagnosis of esophageal tumor. Admission process initiated. Patient oriented to pain management, safety and call light-teach back done.
[2021-07-12 00:28] VITALS: BP_SYST 131
[2021-07-12] MEDS: TAMSULOSIN HCL 0.4 MG CAP PO SCH ×3 (01:35→21:00)
[2021-07-12] MEDS: LACTULOSE 20 GM/30 ML UDC PO SCH ×3 (01:36→21:00)
[2021-07-12] MEDS ORDERED: PIPERACILLIN/TAZOBACTAM 3.375 GM/VIAL (ZOSYN) IV ONE (01:46)
[2021-07-12] MEDS ORDERED: AZITHROMYCIN 500 MG/VIAL (ZITHROMAX) IV ONE (01:47)
[2021-07-12] MEDS: PIPERACILLIN/TAZO 3.375/DEX-IS 50 ML IV SCH ×5 (02:01→23:45)
[2021-07-12] MEDS: AZITHROMYCIN 500 MG in NS 250 ML IV SCH ×2 (03:09→23:18)
[2021-07-12] MEDS: HYDROcodone/ACETAMIN 5-325 MG TAB (NORCO/ VICODIN) PO SCH ×4 (04:07→23:17)
--- NOTE | 2021-07-12 05:35 | NUR ---
CONSULT REASON FOR CONSULT: ESOPHAGEAL TUMOR PERSON I SPOKE WITH: KELECHI CONSULTING PHYSICIAN: DR. EVANGELISTA (DR. JACOB CLIN ASST) SHEET METAL ERECTOR PHONE NUMBER: [phone] ORDERING PHYSICIAN: DR. DIAZ
--- NOTE | 2021-07-12 05:37 | NUR ---
CONSULT REASON FOR CONSULT: LARYNGEAL CA PERSON I SPOKE WITH: KELECHI CONSULTING PHYSICIAN: DR. QIU (Belinda MASCORRO DIAMOND SORTER) CONGRESSIONAL REPRESENTATIVE PHONE NUMBER: [phone] ORDERING PHYSICIAN: DR. DIAZ
--- NOTE | 2021-07-12 05:39 | NUR ---
CONSULT REASON FOR CONSULT: CHF PERSON I SPOKE WITH: KELECHI CONSULTING PHYSICIAN: DR. TIMMONS EXPORT FREIGHT CLERK PHONE NUMBER: [phone] ORDERING PHYSICIAN: DR. DIAZ
--- NOTE | 2021-07-12 06:26 | NUR ---
call to daughter, Called Blue and left message on voicemail; " call back I have a question regarding medication". I want to inform daughter to bring Excederin; the hospital does not have this medication and Mr. Clay is requesting this med. He reports Excederin is mor e effective at controlling his pain than the prescribed meds given.
[2021-07-12] MEDS: OXYCODONE/ACETAMINOPHEN *10*mg/325 mg TABLET PO PRN ×2 (06:58→21:48)
[2021-07-12] MEDS ORDERED: OXYCODONE/ACETAMINOPHEN *10*mg/325 mg TABLET ONE ×2 (06:58→21:42)
--- NOTE | 2021-07-12 07:30 | NUR ---
OPENING NOTES: RECEIVED REPORT FROM DATABASE ENGINEER NURSE. PATIENT IS AWAKE LAYING DOWN IN BED. TOLERATED OXYGEN ON2L NASAL CANNULA WITH NO DISTRESS NOTED. IV LINE PATENT AND INTACT WITH NO INFILTRATION NOTED. PATIENT STABLE AT THIS TIME. SAFETY,FALL, AND ASPIRATION PRECAUTIONS ARE IN PLACE. BED LOCKED IN LOWEST POSITION AND CALL LIGHT IN REACH. WILL CONTINUE TO MONITOR FOR ANY CHANGES.
[2021-07-12 08:00] VITALS: BP_SYST 149
--- NOTE | 2021-07-12 08:25 | NUR ---
PATIENT WAS WHEELED VIA WHEELCHAIR FOR CAT SCAN. AWAITING TO COMEBACK.
--- NOTE | 2021-07-12 08:47 | NUR ---
PATIENT BACK IN HIS ROOM.
[2021-07-12] MEDS ORDERED: NON-FORMULARY MEDICATION (Linaclotide (Linzess) 145 MCG) PO SCH (09:00)
[2021-07-12] MEDS ORDERED: FLUTICASONE FUROATE NAS SCH (09:00)
[2021-07-12] MEDS ORDERED: LACTULOSE 20 GM/30 ML UDC PO SCH (09:00)
[2021-07-12] MEDS ORDERED: metFORMIN HCL 500 MG TABLET PO SCH (09:00)
[2021-07-12] MEDS ORDERED: TAMSULOSIN HCL 0.4 MG CAP PO SCH (09:00)
[2021-07-12] MEDS ORDERED: FLUTICASONE FUROATE SCH (09:00)
[2021-07-12] MEDS: LACTOBACILLUS RHAMNOSUS GG 1 CAP CAPSULE PO SCH ×2 (09:44→21:00)
[2021-07-12] MEDS: FUROSEMIDE 20 MG TABLET PO SCH ×2 (09:44→21:00)
[2021-07-12] MEDS: CYCLOBENZAPRINE HCL 10 MG TABLET (FLEXERIL) PO SCH ×2 (09:45→21:00)
[2021-07-12] MEDS: PANTOPRAZOLE SODIUM 40 MG TAB PO SCH (09:45)
[2021-07-12] MEDS: POTASSIUM CHLORIDE 10 MEQ TAB.PRT.SR PO SCH (09:45)
[2021-07-12] MEDS: METOCLOPRAMIDE HCL 10 MG TABLET PO SCH ×2 (09:46→21:00)
[2021-07-12] MEDS: GABAPENTIN 100 MG CAPSULE PO SCH ×3 (09:46→21:00)
[2021-07-12] MEDS: LOSARTAN POTASSIUM 50 MG TABLET (COZAAR) PO SCH (09:47)
[2021-07-12] MEDS: IPRATROPIUM/ALBUTEROL SULFATE 3 ML AMPUL.NEB (DUONEB) INH SCH ×4 (09:48→20:06)
[2021-07-12 10:27] LABS: ALBUMIN 4.3 g/dL (3.4-4.8); CREATININE 1.92 mg/dL (0.55-1.30); FREE T4 (FREE THYROXINE) 1.1 ng/dl (0.8-1.5); POTASSIUM 4.2 mmol/L (3.5-5.1); THYROID STIMULATING HORMONE 2.35 uIu/mL (0.36-3.74); TOTAL BILIRUBIN 0.4 mg/dL (0.0-1.0)
[2021-07-12 10:29] LABS: BASOPHILS % (AUTO) 0.3 % (0.0-2.0); EOSINOPHILS # (AUTO) 0.1 K/uL (0.0-0.4); EOSINOPHILS % (AUTO) 2.3 % (0.0-4.0); HEMATOCRIT 33.1 % (36-54); HEMOGLOBIN 10.5 g/dL (14.0-18.0); LYMPHOCYTES # (AUTO) 1.1 K/uL (1.0-5.5); LYMPHOCYTES % (AUTO) 29.7 % (20.5-51.5); MEAN CORPUSCULAR HEMOGLOBIN 25 pg (27-31); MEAN CORPUSCULAR HGB CONC 32 % (32-36); MEAN CORPUSCULAR VOLUME 80 fL (79.0-98.0); MONOCYTES # (AUTO) 0.2 K/uL (0.0-1.0); MONOCYTES % (AUTO) 5.7 % (1.7-9.3); NEUTROPHILS # (AUTO) 2.4 K/uL (1.8-7.7); PLATELET COUNT (AUTO) 209 K/uL (130-430); RED BLOOD CELL COUNT(AUTO) 4.14 MIL/uL (4.2-6.2); RED CELL DISTRIBUTION WIDTH 19.6 % (9.0-15.0)
[2021-07-12 10:34] LABS: TOTAL IRON BIND. CAPACITY 407 ug/dL (250-450)
[2021-07-12 11:57] LABS: WHITE BLOOD COUNT (AUTO) 3.8 K/uL (4.8-10.8)
[2021-07-12 12:00] VITALS: BP_SYST 145
[2021-07-12 16:00] VITALS: BP_SYST 143
--- NOTE | 2021-07-12 18:20 | NUR ---
CLOSING NOTES: PATIENT IS AWAKE LAYING DOWN IN BED. TOLERATED OXYGEN ON2L NASAL CANNULA WITH NO DISTRESS NOTED. IV LINE PATENT AND INTACT WITH NO INFILTRATION NOTED. PATIENT STABLE AT THIS TIME. SAFETY,FALL, AND ASPIRATION PRECAUTIONS ARE IN PLACE. BED LOCKED IN LOWEST POSITION AND CALL LIGHT IN REACH. WILL ENDORSE PATIENT CARE TO ONCOMING PIPELINE DISPATCH OPERATOR NURSE.
[2021-07-12 19:00] VITALS: BP_SYST 143
[2021-07-12 20:00] VITALS: BP_SYST 143
[2021-07-12] MEDS: ENOXAPARIN SODIUM 30 MG/0.3 ML SYRINGE SUBCUT SCH (21:24)
[2021-07-13] VITALS (7 sets, daily range): BP systolic 132–162
[2021-07-13] MEDS ORDERED: traMADol HCL HCL 50 MG TABLET (ULTRAM) PO PRN (01:30)
[2021-07-13] MEDS ORDERED: OXYCODONE/ACETAMINOPHEN *10*mg/325 mg TABLET ONE (03:51)
--- NOTE | 2021-07-13 06:35 | NUR ---
Nutrition Update Joe Scale 17 noted. Pt admitted for Esophageal Tumor Diet: NPO BMI: 34.3 kg/m2 RD to follow per nutrition care standards.
[2021-07-13] MEDS: PIPERACILLIN/TAZO 3.375/DEX-IS 50 ML IV SCH ×2 (06:54→11:40)
[2021-07-13 07:06] LABS: FOLATE (FOLIC ACID) 9.8 ng/mL (>3.0)
--- NOTE | 2021-07-13 07:25 | NUR ---
OPENING NOTES: RECEIVED REPORT FROM BLUE CRABBER NURSE. PATIENT IS AWAKE LAYING DOWN IN BED. TOLERATED OXYGEN ON2L NASAL CANNULA WITH NO DISTRESS NOTED. IV LINE PATENT AND INTACT WITH NO INFILTRATION NOTED. PATIENT STABLE AT THIS TIME. SAFETY,FALL, AND ASPIRATION PRECAUTIONS ARE IN PLACE. BED LOCKED IN LOWEST POSITION AND CALL LIGHT IN REACH. WILL CONTINUE TO MONITOR FOR ANY CHANGES.
[2021-07-13] MEDS: IPRATROPIUM/ALBUTEROL SULFATE 3 ML AMPUL.NEB (DUONEB) INH SCH ×3 (07:33→16:09)
[2021-07-13 08:40] LABS: PROTHROMBIN TIME 10.4 SECS (9.5-12.5)
[2021-07-13] MEDS ORDERED: MEPERIDINE 100 MG INJ. 100 MG/ML VIAL ONE (09:04)
[2021-07-13] MEDS ORDERED: SIMETHICONE 40 MG/0.6 ML ML ONE (09:04)
[2021-07-13] MEDS ORDERED: DIPHENHYDRAMINE INJ 50 MG/ML VIAL ONE (09:04)
[2021-07-13] MEDS ORDERED: MIDAZOLAM HCL 5 MG/5 ML VIAL ONE (09:05)
--- NOTE | 2021-07-13 09:10 | NUR ---
SPOKE TO DR. JACOB AND OKAYED TO GIVE MORNING MEDICATION TO PATIENT AFTER EGD.
--- NOTE | 2021-07-13 10:05 | NUR ---
PATIENT WENT FOR EGD. AWAITING TO COMEBACK.
--- NOTE | 2021-07-13 11:00 | NUR ---
PATIENT BACK TO HIS ROOM.
[2021-07-13] MEDS: HYDROcodone/ACETAMIN 5-325 MG TAB (NORCO/ VICODIN) PO SCH ×2 (11:28→20:50)
[2021-07-13] MEDS: LACTULOSE 20 GM/30 ML UDC PO SCH ×2 (11:29→20:30)
[2021-07-13] MEDS: METOCLOPRAMIDE HCL 10 MG TABLET PO SCH ×2 (11:29→20:31)
[2021-07-13] MEDS: GABAPENTIN 100 MG CAPSULE PO SCH ×2 (11:30→20:30)
[2021-07-13] MEDS: CYCLOBENZAPRINE HCL 10 MG TABLET (FLEXERIL) PO SCH ×2 (11:30→20:31)
[2021-07-13] MEDS: POTASSIUM CHLORIDE 10 MEQ TAB.PRT.SR PO SCH (11:31)
[2021-07-13] MEDS: FUROSEMIDE 20 MG TABLET PO SCH ×2 (11:31→20:32)
[2021-07-13] MEDS: LACTOBACILLUS RHAMNOSUS GG 1 CAP CAPSULE PO SCH ×2 (11:32→20:31)
[2021-07-13] MEDS: PANTOPRAZOLE SODIUM 40 MG TAB PO SCH (11:32)
[2021-07-13] MEDS: LOSARTAN POTASSIUM 50 MG TABLET (COZAAR) PO SCH (11:32)
[2021-07-13] MEDS: TAMSULOSIN HCL 0.4 MG CAP PO SCH ×2 (11:33→20:31)
--- NOTE | 2021-07-13 12:51 | NUR ---
SWALLOW/ORAL EVAL PROFESSIONAL SPEECH SERVICES CALLED LEFT A VOICEMAIL WITH DANTE FOR A SWALLOW EVAL.
[2021-07-13] MEDS ORDERED: cefTRIAXone 1 GM in D5W 50 ML IV SCH (15:00)
[2021-07-13] MEDS: OXYCODONE/ACETAMINOPHEN *10*mg/325 mg TABLET PO PRN (16:15)
--- NOTE | 2021-07-13 17:12 | NUR ---
S.T. SWALLOW EVAL SWALLOW EVAL COMPLETED. PT PRESENTS W/ ML ORAL DYSPHAGIA W/ PROLONGED MASTICATION D/T PARTIAL DENTITION. NO S/S OF ASPIRATION. PT C/O FOOD NOT PASSING AT TIMES. REC: CONTINUE W/ REGULAR TEXTURED DIET. THIN LIQUIDS OK. PT DECLINED MODIFIED DIET. CONSIDER EGD INDICATED IF NOT DONE. NURSE QUAN NOTIFIED.
--- NOTE | 2021-07-13 18:20 | NUR ---
CLOSING NOTES: PATIENT IS AWAKE LAYING DOWN IN BED. TOLERATED OXYGEN ON2L NASAL CANNULA WITH NO DISTRESS NOTED. IV LINE PATENT AND INTACT WITH NO INFILTRATION NOTED. PATIENT STABLE AT THIS TIME. SAFETY,FALL, AND ASPIRATION PRECAUTIONS ARE IN PLACE. BED LOCKED IN LOWEST POSITION AND CALL LIGHT IN REACH. WILL ENDORSE PATIENT CARE TO ONCOMING CARRY IN WORKER NURSE.
--- NOTE | 2021-07-13 19:30 | NUR ---
Opening note Received report from day nurse. Pt resting in bed with HOB elevation, no facial grimacing or discomfort noted. Alert x4 on bedrest. On 2L NC tolerating well. No respiratory distress, non labored breathing. IV patent and intact, no complications noted. All needs provided, bed linen changed and skin care provided. Bed to lowest/locked/alarmed. On fall/aspiration precaution.
[2021-07-13] MEDS: ENOXAPARIN SODIUM 30 MG/0.3 ML SYRINGE SUBCUT SCH (20:33)
[2021-07-13] MEDS: AZITHROMYCIN 500 MG in NS 250 ML IV SCH (23:38)
[2021-07-14 00:34] VITALS: BP_SYST 137
[2021-07-14] MEDS: OXYCODONE/ACETAMINOPHEN *10*mg/325 mg TABLET PO PRN ×2 (01:13→10:16)
--- NOTE | 2021-07-14 03:30 | NUR ---
note pt able to sleep, no complaint of pain or discomfort or SOB at this time.
--- NOTE | 2021-07-14 06:26 | NUR ---
Closing note Pt resting in bed with HOB elevation, no facial grimacing or discomfort noted. Awake, alert x4. On 2L NC tolerating well. No respiratory distress, non labored breathing. IV patent and intact SL, no complications noted. All needs provided, bed linen changed and skin care provided. Bed to lowest/locked/alarmed. On fall/aspiration precaution.
[2021-07-14] MEDS: IPRATROPIUM/ALBUTEROL SULFATE 3 ML AMPUL.NEB (DUONEB) INH SCH ×2 (07:00→11:28)
[2021-07-14 07:06] LABS: BASOPHILS % (AUTO) 0.1 % (0.0-2.0); EOSINOPHILS # (AUTO) 0.1 K/uL (0.0-0.4); HEMATOCRIT 32.2 % (36-54); HEMOGLOBIN 10.1 g/dL (14.0-18.0); LYMPHOCYTES % (AUTO) 30.4 % (20.5-51.5); MEAN CORPUSCULAR HEMOGLOBIN 25 pg (27-31); MEAN CORPUSCULAR HGB CONC 31 % (32-36); MEAN CORPUSCULAR VOLUME 80 fL (79.0-98.0); MONOCYTES # (AUTO) 0.3 K/uL (0.0-1.0); NEUTROPHILS # (AUTO) 1.9 K/uL (1.8-7.7); NEUTROPHILS % (AUTO) 57.5 % (40.0-70.0); PLATELET COUNT (AUTO) 189 K/uL (130-430); RED BLOOD CELL COUNT(AUTO) 4.02 MIL/uL (4.2-6.2); RED CELL DISTRIBUTION WIDTH 19.3 % (9.0-15.0); WHITE BLOOD COUNT (AUTO) 3.4 K/uL (4.8-10.8)
[2021-07-14 07:27] LABS: ALBUMIN 3.5 g/dL (3.4-4.8); CALCIUM 9.5 mg/dL (8.4-11.0); CREATININE 1.5 mg/dL (0.55-1.30); POTASSIUM 4.5 mmol/L (3.5-5.1); TOTAL BILIRUBIN 0.2 mg/dL (0.0-1.0)
--- NOTE | 2021-07-14 07:30 | NUR ---
rn opening note patient is awake and alert,report was endorsed by night nurse. patient has no complaints at this time. call light is with him educated to use for assistance. no other needs at this time.
[2021-07-14 08:00] VITALS: BP_SYST 137
[2021-07-14] MEDS ORDERED: FERROUS SULFATE 325 MG TABLET.DR PO SCH (09:00)
[2021-07-14] MEDS ORDERED: CYANOCOBALAMIN 1000 mCg TABLET PO SCH (09:00)
[2021-07-14] MEDS: POTASSIUM CHLORIDE 10 MEQ TAB.PRT.SR PO SCH (09:00)
[2021-07-14] MEDS: CYCLOBENZAPRINE HCL 10 MG TABLET (FLEXERIL) PO SCH (09:58)
[2021-07-14] MEDS: LACTULOSE 20 GM/30 ML UDC PO SCH (09:58)
[2021-07-14] MEDS: LACTOBACILLUS RHAMNOSUS GG 1 CAP CAPSULE PO SCH (09:59)
[2021-07-14] MEDS: TAMSULOSIN HCL 0.4 MG CAP PO SCH (09:59)
[2021-07-14] MEDS: METOCLOPRAMIDE HCL 10 MG TABLET PO SCH (09:59)
[2021-07-14] MEDS: GABAPENTIN 100 MG CAPSULE PO SCH ×2 (09:59→15:49)
[2021-07-14] MEDS: LOSARTAN POTASSIUM 50 MG TABLET (COZAAR) PO SCH (10:00)
[2021-07-14] MEDS: PANTOPRAZOLE SODIUM 40 MG TAB PO SCH (10:00)
[2021-07-14] MEDS: FUROSEMIDE 20 MG TABLET PO SCH (10:00)
--- NOTE | 2021-07-14 10:04 | NUR ---
MEDICAITON Addendum: 07/14/21 at 1136 by Loraine Chaudhry RN medication given order. patient also complains of pain medicated per order. patient tolerated medication well. patient educated radiologic electronic specialist light for assistance. call light is with patient. patient has no other needs at this time. patient has daughter at bed side.
[2021-07-14 10:08] VITALS: BP_SYST 137
--- NOTE | 2021-07-14 11:51 | NUR ---
DISCHARGE PLANNING Order for home health. Discussed with pt at bedside & agreeable, states was on services with [facility] & want to use same. Called & spoke with Samantha at [facility], ph [phone] fax [phone], & informed. States that case has not been opened yet, does not have pt on her list. To fax order/clinicals to open case. Informed UR & clinicals being faxed. I faxed order/pt info to Samantha. Faxed referral to [facility], ph [phone] fax [phone]. Called & lt msg with [facility]. Addendum: 07/14/21 at 1200 by Evette Wilkerson RN Pt's Cell ph: [phone] Addendum: 07/14/21 at 1353 by Evette Wilkerson RN Received call from Fernando at [facility] & cannot accept pt, has no nurse avail in the area. States that was no longer following pt, that was discharged from their services at the beginning of June. Called & spoke with Samantha at [facility] and informed. States still has not received pt info, that the fax goes to central service then the case is opened and sent to her. Will call and give contracted home health & auth once she receives the case. Addendum: 07/14/21 at 1536 by Evette Wilkerson RN Received call from Samantha at [facility], case is open now, states to send to [facility] & leave her a msg if accepted so can give auth. Faxed referral to [facility], ph [phone] fax [phone]. Called & spoke with Piper at [facility], states will review when get to the referral, going thru referrals sent.
--- NOTE | 2021-07-14 11:58 | NUR ---
ACCU CHECK PATIENTS ACCU CHECK DONE NO COVERAGE WAS NEEDED. PATIENT EDUCATED TO USE CALL LIGHT FOR ASSISTANCE, CALL LIGHT IS WITH HIM. PATIENT IS REQUESTING A NEW GOWN PROVIDED TO HIM. PATIENT HAS NO OTHER NEEDS AT THIS TIME. PATIENT IS CLOSE TO NURSES STATION.
[2021-07-14 12:36] VITALS: BP_SYST 133
--- NOTE | 2021-07-14 14:00 | NUR ---
rn rounding patient assisted to bathroom and back to bed. breathing is labored after ambulating breathing treatment was given. patient educated neonatal nurse practitioner light, call light is with him. patient is close to the nurses station. no other needs at this time.
[2021-07-14] MEDS ORDERED: MUPIROCIN 2% TOPICAL OINTMENT 22 GM NS ONE (15:00)
[2021-07-14 15:06] VITALS: BP_SYST 133
--- NOTE | 2021-07-14 16:45 | NUR ---
Discharge Patients IV catheter removed catheter intact, applied gauze and tap to insertion site. Patient's ID band removed, all belongings with patient. report was endorsed to division service manager at [facility] also with discharge paper work. Both daughter were informed that patient is going back to [facility]. Patient has no further questions regarding discharged. patient wheeled out via private wheel chair and home oxygen. educated patient and transporter on how to use portable oxygen with no further questions.Patient has no other concerns, no signs of any distress.
[2021-07-14 16:51] VITALS: BP_SYST 130
[2021-07-14] MEDS ORDERED: MUPIROCIN 2% TOPICAL OINTMENT 22 GM NS SCH (21:00)
--- NOTE | 2021-07-15 09:27 | NUR ---
PHYSICAL THERAPY CO-SIGN The Physical Therapy Progress Notes documented by Optical Goods Worker have been reviewed. Reviewed/Co-Signed by: Stefano Amaya Documentation Done by: LUIS FERNANDO BENSON PTA Addendum: 07/15/21 at 0927 by Stefano Amaya PT Amended: Links added.
== END 2021-07-14 17:04 | disposition home health service (06) | DRG 551 ==
LOC: SED 15:21 → SMU 18:02
PROVIDERS: ADMIT Internal Medicine; ATTEND Internal Medicine
PROC: 0DB78ZX Excision of Stomach, Pylorus, Via Natural or Artificial Opening Endoscopic, Diagnostic (ICD-10-PCS; principal; 2021-07-13 10:00)
DX: M48.02 Spinal stenosis, cervical region (principal); J18.9 Pneumonia, unspecified organism; J96.20 Acute and chronic respiratory failure, unspecified whether with hypoxia or hypercapnia; J44.1 Chronic obstructive pulmonary disease with (acute) exacerbation; I50.32 Chronic diastolic (congestive) heart failure; J44.0 Chronic obstructive pulmonary disease with (acute) lower respiratory infection; K29.70 Gastritis, unspecified, without bleeding; E11.21 Type 2 diabetes mellitus with diabetic nephropathy; E78.5 Hyperlipidemia, unspecified; I25.10 Atherosclerotic heart disease of native coronary artery without angina pectoris; G89.29 Other chronic pain; K21.9 Gastro-esophageal reflux disease without esophagitis; M47.896 Other spondylosis, lumbar region; R53.81 Other malaise; D50.9 Iron deficiency anemia, unspecified; E66.01 Morbid (severe) obesity due to excess calories; E11.40 Type 2 diabetes mellitus with diabetic neuropathy, unspecified; I35.8 Other nonrheumatic aortic valve disorders; I87.8 Other specified disorders of veins; Z20.822 Contact with and (suspected) exposure to COVID-19; J38.7 Other diseases of larynx; R13.10 Dysphagia, unspecified; I11.0 Hypertensive heart disease with heart failure; K59.00 Constipation, unspecified; Z88.5 Allergy status to narcotic agent; Z88.8 Allergy status to other drugs, medicaments and biological substances; Z79.899 Other long term (current) drug therapy; Z79.891 Long term (current) use of opiate analgesic; Z85.46 Personal history of malignant neoplasm of prostate
CPT/HCPCS: 36415; 43239; 70490; 71045; 71250-TC; 76376; 80053; 82550; 82607; 82728; 82746; 82962; 83036; 83540; 83550; 83880; 84439; 84443; 84484; 85025; 85379; 85610-TC; 87070-TC; 87081; 87205-TC; 88305; 88312; 88313; 92610-GN; 93005; 94640; 94760; 96374; 96375; 97110-GP; 97116-GP; 97530-GP; 99285; J0456; J0696; J1200; J1650; J1815; J1885; J1940; J2175; J2250; J2543; J7050; J7060; J8597

== ENCOUNTER 2021-08-24 19:05 | Emergency (ER) | payer MEDICARE, MEDICAID ==
[~2021-08-24] VITALS: Ht 188 cm; Wt 138.3 kg
[2021-08-24 19:05] VITALS: BP_SYST 132
[~2021-08-24 19:05] MED LIST changes: +DOCU100T22 PO; +FLUT50BL NAS; +FURO-149 PO; +GLIP5TAB26 PO; +HYDR-3919 PO; +LACT10SO6 PO; +LOSA50TA28 PO; +METF1000 PO; +NAPR-1172 PO; +OXIC30CR3 TP; +OXYC10TA48 PO; +PANT40TA45 PO; +POTA10TA58 PO; +SITA50TA3 PO; +ZOFODT4 SL
[2021-08-24] MEDS ORDERED: HYDROcodone/ACETAMIN 10-325 MG TAB PO ONE (20:15)
[2021-08-24] MEDS ORDERED: KETOROLAC TROMETHAMINE 30 MG VIAL IM ONE (22:00)
[2021-08-24 23:58] VITALS: BP_SYST 132
== END 2021-08-24 23:58 | disposition home or self-care (01) ==
LOC: SED 19:05
DX: R60.0 Localized edema (principal); M19.09 Primary osteoarthritis, other specified site; M79.605 Pain in left leg; I10 Essential (primary) hypertension; E11.9 Type 2 diabetes mellitus without complications; Z88.5 Allergy status to narcotic agent; Z88.8 Allergy status to other drugs, medicaments and biological substances; Z79.84 Long term (current) use of oral hypoglycemic drugs; Z79.899 Other long term (current) drug therapy
CPT/HCPCS: 73564; 93971; 96372; 99284; J1885

== ENCOUNTER 2021-08-31 01:44 | Emergency (ER) | payer OTHER, MEDICAID ==
[~2021-08-31] VITALS: Ht 188 cm; Wt 115.7 kg
[2021-08-31 01:50] VITALS: BP_SYST 142
[2021-08-31] MEDS ORDERED: OXYCODONE/ACETAMINOPHEN *10*mg/325 mg TABLET PO ONE (02:30)
[2021-08-31 02:50] LABS: BILIRUBIN,URINE NEGATIVE (NEGATIVE); BLOOD, URINE NEGATIVE (NEGATIVE); CLARITY/URINE CLEAR (CLEAR); COLOR,URINE YELLOW (YELLOW); GLUCOSE,URINE NEGATIVE (NEGATIVE); KETONES,URINE NEGATIVE (NEGATIVE); LEUKOCYTE ESTERASE ,URINE NEGATIVE (NEGATIVE); NITRITE, URINE NEGATIVE (NEGATIVE); PROTEIN URINE TRACE (NEGATIVE); UROBILINOGEN,URINE 0.2 (0.2-1.0)
[2021-08-31 02:56] LABS: BASOPHILS % (AUTO) 0.3 % (0.0-2.0); EOSINOPHILS # (AUTO) 0.1 K/uL (0.0-0.4); EOSINOPHILS % (AUTO) 2.2 % (0.0-4.0); HEMOGLOBIN 10.5 g/dL (14.0-18.0); LYMPHOCYTES # (AUTO) 1.8 K/uL (1.0-5.5); LYMPHOCYTES % (AUTO) 35.1 % (20.5-51.5); MEAN CORPUSCULAR HEMOGLOBIN 26 pg (27-31); MEAN CORPUSCULAR HGB CONC 32 % (32-36); MEAN CORPUSCULAR VOLUME 82 fL (79.0-98.0); MONOCYTES # (AUTO) 0.3 K/uL (0.0-1.0); MONOCYTES % (AUTO) 6.6 % (1.7-9.3); NEUTROPHILS # (AUTO) 2.9 K/uL (1.8-7.7); NEUTROPHILS % (AUTO) 55.8 % (40.0-70.0); PLATELET COUNT (AUTO) 232 K/uL (130-430); RED BLOOD CELL COUNT(AUTO) 4.04 MIL/uL (4.2-6.2); RED CELL DISTRIBUTION WIDTH 18.3 % (9.0-15.0); WHITE BLOOD COUNT (AUTO) 5.2 K/uL (4.8-10.8)
[2021-08-31 03:02] LABS: INR 0.9 (0.80-1.20); PROTHROMBIN TIME 9.9 SECS (9.5-12.5)
[2021-08-31 03:03] LABS: CALCIUM 9.8 mg/dL (8.4-11.0); CREATININE 2.23 mg/dL (0.55-1.30); POTASSIUM 4.4 mmol/L (3.5-5.1)
[2021-08-31 03:29] LABS: ALBUMIN 4.3 g/dL (3.4-4.8); TOTAL BILIRUBIN 0.2 mg/dL (0.0-1.0)
[2021-08-31] MEDS ORDERED: ACETAMINOPHEN 325 MG TABLET PO ONE (06:45)
[2021-08-31] MEDS ORDERED: oxyCODONE HCL 5 MG TABLET PO ONE (09:00)
[2021-08-31] MEDS ORDERED: OXYCODONE/ACETAMINOPHEN 5-325 TABLET PO ONE (09:15)
[2021-08-31 10:04] VITALS: BP_SYST 154
== END 2021-08-31 10:07 | disposition home or self-care (01) ==
LOC: SED 01:44
DX: G89.29 Other chronic pain (principal); M79.602 Pain in left arm; M54.9 Dorsalgia, unspecified; I10 Essential (primary) hypertension; E11.9 Type 2 diabetes mellitus without complications; Z76.0 Encounter for issue of repeat prescription; Z88.5 Allergy status to narcotic agent; Z88.8 Allergy status to other drugs, medicaments and biological substances; Z79.899 Other long term (current) drug therapy
CPT/HCPCS: 36415; 80053; 81003; 83880; 84484; 85025; 85610-TC; 85730-TC; 93005; 93970; 99285